=== PATIENT | male | born 1950 | race Caucasian/White ===

== ENCOUNTER 2020-05-05 10:14 | Outpatient (REF) | payer MEDICARE, SELFPAY ==
[2020-05-05 11:39] LABS: Anion Gap 13 (12-20); Blood Urea Nitrogen 27 mg/dL (9-16); Carbon Dioxide 26 mmol/L (22-29); Chloride 104 mmol/L (96-108); Estimated Glomerular Filt Rate > 60; Potassium 4.2 mmol/L (3.3-5.1); Sodium 139 mmol/L (135-145)
[2020-05-05 12:13] LABS: Estimated Average Glucose 114 mg/dL; Hemoglobin A1c % 5.6 %
== END 2020-05-05 10:15 | disposition home or self-care (01) ==
LOC: HO.HMGCLDS 10:14
PROVIDERS: PCP Internal Medicine; Visit Provider Internal Medicine
DX: I10 Essential (primary) hypertension (principal); R73.09 Other abnormal glucose
CPT/HCPCS: 36415; 80051; 82565; 83036; 84520

== ENCOUNTER 2020-12-04 07:33 | Outpatient (REF) | payer MEDICARE, SELFPAY ==
[2020-12-04 11:40] LABS: Alanine Aminotransferase 26 U/L (0-40); Albumin Level 4.2 g/dL (3.5-5.0); Alkaline Phosphatase 67 U/L (39-117); Anion Gap 13 (12-20); Aspartate Amino Transferase 21 U/L (5-37); Bilirubin Total 0.5 mg/dL (0.0-1.0); Blood Urea Nitrogen 30 mg/dL (9-16); Carbon Dioxide 24 mmol/L (22-29); Chloride 108 mmol/L (96-108); Cholesterol 187 mg/dL; Estimated Glomerular Filt Rate > 60; Glucose Fasting 111 mg/dL (60-99); HDL Cholesterol 46 mg/dL; LDL Cholesterol Calculated 127 mg/dl; Potassium 4.1 mmol/L (3.3-5.1); Sodium 141 mmol/L (135-145); Total Protein 6.8 g/dL (6.5-8.0); Triglycerides 73 mg/dL
[2020-12-04 12:01] LABS: Estimated Average Glucose 114 mg/dL; Hemoglobin A1c % 5.6 %
== END 2020-12-04 07:34 | disposition home or self-care (01) ==
LOC: HO.HMGCLDS 07:33
PROVIDERS: PCP Internal Medicine; Visit Provider Internal Medicine
DX: E66.9 Obesity, unspecified (principal); I10 Essential (primary) hypertension; R73.03 Prediabetes
CPT/HCPCS: 36415; 80053; 80061; 83036

== ENCOUNTER 2020-12-09 11:27 | Outpatient (REF) | payer MEDICARE, SELFPAY | END 2020-12-09 11:28 | disposition home or self-care (01) | LOC: HO.LNP 11:27 | PROVIDERS: Visit Provider Internal Medicine | DX: Z20.822 Contact with and (suspected) exposure to COVID-19 (principal); J06.9 Acute upper respiratory infection, unspecified | CPT/HCPCS: U0003; U0005 ==

== ENCOUNTER 2020-12-23 10:06 | Outpatient (REF) | payer MEDICARE, SELFPAY ==
--- NOTE | ~2020-12-23 | XR_ITS ---
EXAMINATION: XR KNEE, RIGHT CLINICAL INFORMATION: Unspecified internal derangement of right knee COMPARISON: Previous x-ray September 2017 TECHNIQUE: Two views of the right knee. FINDINGS: Bone alignment is normal. No fracture or dislocation is seen. There is arthritis of the medial femoral tibial and patellofemoral joints with joint space narrowing and small osteophytes. There is degenerative medial and lateral meniscal calcification. There is a small to moderate joint effusion. XR/XR knee RT 2V IMPRESSION: Degenerative changes and joint effusion.
== END 2020-12-23 10:07 | disposition home or self-care (01) ==
LOC: HO.HMGCX 10:06
PROVIDERS: PCP Internal Medicine; Visit Provider Internal Medicine
DX: Z13.89 Encounter for screening for other disorder (principal)
CPT/HCPCS: 73560

== ENCOUNTER 2021-01-04 08:06 | Outpatient (REF) | payer MEDICARE, SELFPAY ==
--- NOTE | ~2021-01-04 | XR_ITS ---
EXAMINATION: XR BOTH KNEES AP STANDING XR RIGHT KNEE, 2 VIEWS CLINICAL INFORMATION: Pain. COMPARISON: Right knee radiograph dated 12/23/2020. Left knee radiographs dated 09/26/2017. TECHNIQUE: Standing AP view of both knees and lateral and sunrise views of the right knee. FINDINGS: Right Knee: Severe medial compartment joint space narrowing with bony remodeling, subchondral sclerosis, and subchondral cystic change. Tricompartmental marginal osteophytes. Tricompartmental chondrocalcinosis. No significant joint effusion. No osseous erosion. Left Knee: Proximal tibial plateau ORIF. No acute hardware fracture. No perihardware lucency to suggest loosening or infection. [id number] medial compartment joint space narrowing with subchondral sclerosis. Medial and lateral compartment marginal osteophytes and chondrocalcinosis. XR/XR knee RT 2V IMPRESSION: RIGHT KNEE: Tricompartmental osteoarthritis, most severe within the medial compartment. Tricompartmental chondrocalcinosis. Findings have slightly progressed. LEFT KNEE: Proximal tibial plateau ORIF. Medial and lateral compartment osteoarthritis and chondrocalcinosis, slightly progressed.
--- NOTE | ~2021-01-04 | XR_ITS ---
EXAMINATION: XR BOTH KNEES AP STANDING XR RIGHT KNEE, 2 VIEWS CLINICAL INFORMATION: Pain. COMPARISON: Right knee radiograph dated 12/23/2020. Left knee radiographs dated 09/26/2017. TECHNIQUE: Standing AP view of both knees and lateral and sunrise views of the right knee. FINDINGS: Right Knee: Severe medial compartment joint space narrowing with bony remodeling, subchondral sclerosis, and subchondral cystic change. Tricompartmental marginal osteophytes. Tricompartmental chondrocalcinosis. No significant joint effusion. No osseous erosion. Left Knee: Proximal tibial plateau ORIF. No acute hardware fracture. No perihardware lucency to suggest loosening or infection. Lvnrnntt-yg-[id number] medial compartment joint space narrowing with subchondral sclerosis. Medial and lateral compartment marginal osteophytes and chondrocalcinosis. XR/XR knee standing BI IMPRESSION: RIGHT KNEE: Tricompartmental osteoarthritis, most severe within the medial compartment. Tricompartmental chondrocalcinosis. Findings have slightly progressed. LEFT KNEE: Proximal tibial plateau ORIF. Medial and lateral compartment osteoarthritis and chondrocalcinosis, slightly progressed.
== END 2021-01-04 08:07 | disposition home or self-care (01) ==
LOC: HO.HOSX 08:06
PROVIDERS: Visit Provider Orthopaedic Surgery
DX: M17.31 Unilateral post-traumatic osteoarthritis, right knee (principal); M25.562 Pain in left knee; I10 Essential (primary) hypertension; Z91.010 Allergy to peanuts
CPT/HCPCS: 20610; 73560; 73565; 99212; J1100

== ENCOUNTER 2021-05-10 08:25 | Outpatient (REF) | payer MEDICARE, SELFPAY ==
[2021-05-10 11:38] LABS: Alanine Aminotransferase 26 U/L (0-40); Albumin Level 4.2 g/dL (3.5-5.0); Alkaline Phosphatase 65 U/L (39-117); Anion Gap 12 (12-20); Aspartate Amino Transferase 21 U/L (5-37); Bilirubin Total 0.7 mg/dL (0.0-1.0); Blood Urea Nitrogen 23 mg/dL (9-16); Carbon Dioxide 26 mmol/L (22-29); Chloride 107 mmol/L (96-108); Estimated Glomerular Filt Rate > 60; Glucose Random 110 mg/dL (60-115); Potassium 4.8 mmol/L (3.3-5.1); Sodium 140 mmol/L (135-145); Total Protein 7.1 g/dL (6.5-8.0)
[2021-05-10 12:06] LABS: Estimated Average Glucose 117 mg/dL; Hemoglobin A1c % 5.7 %
== END 2021-05-10 08:26 | disposition home or self-care (01) ==
LOC: HO.LAB 08:25
PROVIDERS: Visit Provider Internal Medicine
DX: E66.09 Other obesity due to excess calories (principal); I10 Essential (primary) hypertension; R73.03 Prediabetes
CPT/HCPCS: 36415; 80053; 83036

== ENCOUNTER → 2021-09-09 09:34 | Outpatient (BNVA) | payer MEDICARE, SELFPAY | PROVIDERS: PCP Internal Medicine; Visit Provider Orthopaedic Surgery | DX: M17.31 Unilateral post-traumatic osteoarthritis, right knee (principal) | CPT/HCPCS: 99212 ==

== ENCOUNTER → 2021-10-26 15:17 | Outpatient (BNVA) | payer MEDICARE, SELFPAY | PROVIDERS: PCP Internal Medicine; Visit Provider Nurse Practitioner Family | DX: Z12.11 Encounter for screening for malignant neoplasm of colon (principal) | CPT/HCPCS: 99202 ==

== ENCOUNTER 2021-12-13 09:00 | Outpatient (RCR) | payer MEDICARE, SELFPAY ==
--- NOTE | 2021-12-08 16:53 | MHC.PT.EP ---
[facility] [place] Office [place] Office [place] Office [address] Lawrence Mcgee [address] [phone] F: [phone] F: [phone] F: [phone] F: [phone] Physical Therapy Plan of Care Date of Evaluation: Date of Surgery: Diagnosis: R knee TKR prehab Assessment: Pt is a 71 y/o male with long Hx of R knee pain and dysfunction is referred to PT for Prehab prior to his upcoming TKA; he demonstrates decreased R knee ROM and strength, gait and posture abnormality, and pain. Pt is deemed an appropriate candidate to receive skilled PT in order to address his physical limitations to improve his functional ability and maximize his surgical outcome. Frequency and Duration: The patient will be seen 2 x/ wk x 2 wks. Short Term Goals: initiate prehab program Communications Planner Goals: I with prehab program. R knee extension to 0 degrees; initial: 6 degrees. Improve R knee extension MMT to > 4+/5. Treatment Plan: Modalities to reduce pain, spasms and effusion. Manual therapy to restore motion and function. Therapeutic exercise to improve strength and flexibility. Neuromuscular re-education for posture and balance. Therapeutic activities to return to functional activities of daily living. Electronically signed by: Néstor Moncada PT. Please sign and return to therapist. Thank you for your referral.
--- NOTE | 2021-12-13 11:04 | MHC.PT.DC ---
[facility] [place] Office [place] Office [place] Office [address] Lawrence Mcgee 140 [facility] [phone] F: [phone] F: [phone] F: [phone] F: [phone] Physical Therapy Discharge Report Diagnosis: R knee TKR prehab Date of Surgery: Date of Evaluation: 12/08/21 Date of Discharge: 12/13/21 Treatments to Date: 2 Cancellations to Date: No Shows to Date: Discharge Status: Independent with HEP Patient Elected to Stop Discharge Summary: Pradeep is motivated for his for obtaining a good outcome s/p TKA and has demonstrated good prehab exercise performance. ROM 6-130 Electronically signed by: Néstor Moncada PT. Please sign and return to therapist. Thank you for your referral.
== END 2021-12-13 11:03 | disposition home or self-care (01) ==
LOC: HO.PTCHIC 09:00
PROVIDERS: PCP Internal Medicine; Visit Provider Orthopaedic Surgery
DX: M17.11 Unilateral primary osteoarthritis, right knee (principal)
CPT/HCPCS: 97110; 97161

== ENCOUNTER → 2022-01-12 14:14 | Outpatient (BNVA) | payer MEDICARE, SELFPAY | PROVIDERS: PCP Internal Medicine; Visit Provider Internal Medicine Cardiovascular Disease | DX: Z01.810 Encounter for preprocedural cardiovascular examination (principal); R94.31 Abnormal electrocardiogram [ECG] [EKG]; I10 Essential (primary) hypertension | CPT/HCPCS: 99202 ==

== ENCOUNTER → 2022-01-17 07:14 | Outpatient (REF) | payer MEDICARE, SELFPAY ==
--- NOTE | 2022-01-17 07:16 | CA_ITS ---
Transthoracic Echocardiogram Patient (Last, First, Middle): Pradeep Gómez E Gender: Male Date of : 1950 Age: 71 Procedure Date: 01/17/2022 Procedure Type: Transthoracic Echocardiogram Location: OP Height: 167.64 cm Weight: 86.18 kg BSA: 1.96 m2 Heart Rate: bpm BP: 140 / 88 mmHg Silverware Cleaner: FRANC Referring MD: Sunny Garner MD Symptoms: R94.31 - Abnormal electrocardiogram [ECG] [EKG] Study Quality: Adequate Conclusions: - Normal left ventricular size and systolic function. There is mildly increased left ventricular wall thickness. The visually estimated ejection fraction is between 60-65%. - There is normal right ventricular systolic function. RV size is on upper limit of normal. - The left atrium is likely dilated. The right atrium is normal in size. - There is mild dilatation of the ascending aorta measuring 3.50 cm. Findings Left Ventricle Normal left ventricular size and systolic function. There is mildly increased left ventricular wall thickness. The visually estimated ejection fraction is between 60-65%. There is no evidence of regional wall motion abnormalities. Diastolic function is normal for age. Right Ventricle There is normal right ventricular systolic function. RV size is on upper limit of normal. Atria The left atrium is likely dilated. The right atrium is normal in size. Aortic Valve Normal aortic valve structure and function. There is no aortic valve stenosis. There is no aortic valve regurgitation. Mitral Valve Normal mitral valve structure and function. There is trace mitral valve regurgitation. There is no mitral valve stenosis. Pulmonic Valve Normal pulmonic valve structure and function. There is trace pulmonic valve regurgitation. Tricuspid Valve Normal tricuspid valve structure and function. There is trace tricuspid valve regurgitation. Normal right atrial pressure. There is no evidence of pulmonary hypertension. Great Vessels There is mild dilatation of the ascending aorta measuring 3.50 cm. The visualized portions of the pulmonary artery and branches are normal. Venous The inferior vena cava is normal in size and collapses greater than 50% with inspiration. Pericardium/Pleural There is no evidence of pericardial effusion. Prior Study Comparison No prior study available for comparison. Measurements 2D Linear Measurements IVSd: 1.16 0.6-0.9/0.6-1.0 cm LVIDd: 4.47 3.9-5.3/4.2-5.9 cm LVIDd Index: 2.28 2.4-3.2/2.2-3.1 cm/m2 LVIDs: 2.53 2.0-3.6 cm LVPWd: 1.06 0.7-1.1 cm LA Diam: 3.90 2.7-3.8/3.0-4.0 cm LAIDs Index: 1.99 1.5-2.3 cm/m2 LV Mass: 218.51 67-162/88-224 g LV Mass Index: 111.48 43-95/49-115 g/m2 LVOT Diam: 2.00 3.0+(-)1.3 cm 2D Systolic Function EF 4C: 62.20 >55% EF 2C: 61.10 >55% EF BiP: 60.90 >55% Mitral Valve MV Pk E: 0.70 MV PK A: 0.69 MV Decel Time: 293.00 E/A: 1.00 E'Lateral: 10.80 E'Medial: 8.81 E/E' Med: 7.90 E/E' Lat: 6.50 PHT: 86.00 MVA PHT: 2.56 Decel [place]: 2.38 Aortic Valve AoV Pk [place]: 1.66 AoV Mn [place]: 1.11 AoV VTI: 0.36 AoV Pk Grad: 11.00 Aov Mn Grad: 6.00 LIZZIE Cont.VTI: 2.04 LVOT LVOT Pk [place]: 1.03 LVOT Mn [place]: 0.66 LVOT VTI: 0.24 LVOT Pk Grad: 4.00 LVOT Mn Grad: 2.00 LVOT Diam: 2.00 LVOT Area: 3.14 Diastolic Function MV Pk E: 0.70 MV Pk A: 0.69 E/A: 1.00 E'Medial: 8.81 E/E' Med: 7.90 E' Laterial: 10.80 E/E' Lat: 6.50 Right Ventricle TAPSE (mm): 26.90 TVS' [place]: 18.50 Tricuspid Valve TR Pk [place]: 2.73 TR Pk Grad: 30.00 RA Press: 3.00 RVSP: 33.00 Great Vessels Aorta Sinus of Valsalva: 3.27 2.0-3.[address] [place]: 2.39 1.7-3.4 cm Ao Asc: 3.50 2.1-3.4 cm Updated in Other Vendor System with Status of Final Sunny Garner MD electronically signed on 01/17/2022 11:11:36 AM with status of Final
== END ==
LOC: HO.CARD 07:14
PROVIDERS: PCP Internal Medicine; Visit Provider Internal Medicine
DX: R94.31 Abnormal electrocardiogram [ECG] [EKG] (principal)
CPT/HCPCS: 93306

== ENCOUNTER 2022-01-18 09:23 | Day surgery (SDC) | payer MEDICARE, SELFPAY ==
--- NOTE | 2021-12-28 | ECG_ITS ---
Test Reason : PREOP Blood Pressure : / mmHG Vent. Rate : 064 BPM Atrial Rate : 064 BPM P-R Int : 144 ms QRS Dur : 102 ms QT Int : 420 ms P-R-T Axes : -02 031 -19 degrees QTc Int : 433 ms Sinus rhythm with occasional Premature ventricular complexes T wave abnormality, consider lateral ischemia T wave abnormality, consider inferior ischemia Abnormal ECG No previous ECGs available Referred By: Jovanni Massey Electronically Signed By:FRANNIE WYATT
[2021-12-28 11:56] VITALS: BP 144/88; PULSE 66; RESP 20; O2SAT 96; BMI 30.8
--- NOTE | 2021-12-28 12:06 | P.CONAN_ITS ---
HPI - Anesthesia Eval Consult details Narrative: Abnormal EKG, per T/C with PCP, pt requires cardiac workup 71yo M for Right Knee Replacement Total PCP cleared [facility] Active Problems Active Problems: All Active Problems (Updated 12/27/21 @ 11:11 by Preeti Motley RN) Pre-diabetes (Acute) Obesity (Acute) Impacted cerumen of both ears (Acute) Upper respiratory tract infection (Acute) Internal derangement of right knee (Acute) Obesity due to excess calories (Acute) Unilateral post-traumatic osteoarthritis, right knee (Acute) Encounter for general adult medical examination with abnormal findings (Acute) Colon cancer screening (Acute) Osteoarthritis of right knee (Acute) Hypertension, essential (Acute) Past Medical History Medical History History of depression Hypertension, essential Family History Family history of problems with anesthesia: No Surgical History Surgical History History of lumbar discectomy History of surgery on extremity Hx of arthroscopy of left knee Hx of colonoscopy Hx of elbow surgery Hx of hernia repair Hx of repair of rotator cuff History of Problems with Anesthesia: No Social History Social History Housing: House Are you a primary student career development specialist to a significant other at home: No Do you presently have visiting nurse or other home services: No Alcohol intake: current Alcohol intake frequency: a few times a month Patient Tobacco Use Status: Never used Tobacco e-Cigarette/Vaping Use: Never Used Second Hand Smoke Exposure: No service: No Current occupational status: retired Current occupation: Left handed Cognitive needs: No Hearing needs: No Vision needs: No Narrative Narrative: No recent illness No CP or SOB with hiking Meds Allergies Allergy/AdvReac Type Severity Reaction Status Date / Time peanuts Allergy Severe anaphylaxis Uncoded 12/31/21 10:23 Exam Exam Date and Time: December 28, 2021 1206 Height,Weight and Vital Signs: Height 5 ft 6 in Weight 86.636 kg Last Vital Signs Pulse 66 12/28/21 11:56 Resp 20 12/28/21 11:56 BP 144/88 H 12/28/21 11:56 Pulse Ox 96 12/28/21 11:56 O2 Del Method 12/28/21 11:56 Pertinent Lab Results Pertinent Lab Results: Lab Results 12/28/21 12/28/21 12/28/21 Range/Units 12:55 12:55 12:55 WBC 8.9 (4.8-10.8) X10*3/uL RBC 4.74 (4.60-5.80) X10*6/uL Hgb 14.8 (14.0-18.0) g/dl Hct 44.4 (42.0-52.0) % MCV 93.7 (80.0-98.0) fL MCH 31.2 (27.0-33.0) pg MCHC 33.3 (31.0-36.0) g/dl RDW 13.4 (11.0-16.0) % Plt Count 381 (160-400) X10*3/uL MPV 9.8 (9.4-12.4) fL Immature Gran % (Auto) 0.3 (0.0-0.4) % Neut % (Auto) 66.2 (45-73) % Lymph % (Auto) 24.0 (20-40) % [place] % (Auto) 7.4 (2-11) % Eos % (Auto) 1.4 (0-4) % Baso % (Auto) 0.7 (0-2) % Lymph # (Auto) 2.1 (1.2-4.9) X10*3/uL [place] # (Auto) 0.7 (0.1-1.2) X10*3/uL Eos # (Auto) 0.1 (0.0-0.4) X10*3/uL Baso # (Auto) 0.1 (0.0-0.2) X10*3/uL Abs Immat Gran (auto) 0.03 (0.00-0.03) X10*3/uL Absolute Neuts (auto) 5.9 (2.0-8.3) x10*3/uL Absolute Nucleated RBC 0.000 (0.0-0.012) X10*3/uL Nucleated RBC % (auto) 0.0 (0.0-0.2) /100WBC Sodium TNP Potassium TNP Chloride TNP Carbon Dioxide TNP Anion Gap TNP BUN TNP Creatinine TNP Estim Creat Clear Calc TNP Estimated GFR TNP Fasting Glucose (60-99) mg/dL Calcium (8.4-10.2) mg/dL Total Bilirubin (0.0-1.0) mg/dL AST (5-37) U/L ALT (0-40) U/L Alkaline Phosphatase (39-117) U/L Total Protein (6.5-8.0) g/dL Albumin (3.5-5.0) g/dL Triglycerides mg/dL Cholesterol mg/dL LDL Cholesterol, Calc mg/dl HDL Cholesterol mg/dL Nasal Screen MRSA (PCR) (Negative) Nasal S. aureus Screen (Negative) Nasal MRSA/S.aureus Interp Blood Type A Negative Antibody Screen NEGATIVE 12/28/21 12/28/21 12/28/21 Range/Units 12:55 12:55 Unknown WBC Cancelled (4.8-10.8) X10*3/uL RBC Cancelled (4.60-5.80) X10*6/uL Hgb Cancelled (14.0-18.0) g/dl Hct Cancelled (42.0-52.0) % MCV Cancelled (80.0-98.0) fL MCH Cancelled (27.0-33.0) pg MCHC Cancelled (31.0-36.0) g/dl RDW Cancelled (11.0-16.0) % Plt Count Cancelled (160-400) X10*3/uL MPV Cancelled (9.4-12.4) fL Immature Gran % (Auto) Cancelled (0.0-0.4) % Neut % (Auto) Cancelled (45-73) % Lymph % (Auto) Cancelled (20-40) % [place] % (Auto) Cancelled (2-11) % Eos % (Auto) Cancelled (0-4) % Baso % (Auto) Cancelled (0-2) % Lymph # (Auto) Cancelled (1.2-4.9) X10*3/uL [place] # (Auto) Cancelled (0.1-1.2) X10*3/uL Eos # (Auto) Cancelled (0.0-0.4) X10*3/uL Baso # (Auto) Cancelled (0.0-0.2) X10*3/uL Abs Immat Gran (auto) Cancelled (0.00-0.03) X10*3/uL Absolute Neuts (auto) Cancelled (2.0-8.3) x10*3/uL Absolute Nucleated RBC Cancelled (0.0-0.012) X10*3/uL Nucleated RBC % (auto) Cancelled (0.0-0.2) /100WBC Sodium 141 Potassium 4.4 Chloride 105 Carbon Dioxide 24 Anion Gap 16 BUN 28 H Creatinine 1.04 Estim Creat Clear Calc 69.1 Estimated GFR > 60 Fasting Glucose 103 H (60-99) mg/dL Calcium 9.9 (8.4-10.2) mg/dL Total Bilirubin 0.4 (0.0-1.0) mg/dL AST 21 (5-37) U/L ALT 27 (0-40) U/L Alkaline Phosphatase 73 (39-117) U/L Total Protein 7.5 (6.5-8.0) g/dL Albumin 4.5 (3.5-5.0) g/dL Triglycerides 79 mg/dL Cholesterol 205 mg/dL LDL Cholesterol, Calc 142 mg/dl HDL Cholesterol 48 mg/dL Nasal Screen MRSA (PCR) NEGATIVE (Negative) Nasal S. aureus Screen NEGATIVE (Negative) Nasal MRSA/S.aureus Interp SEE NOTE Blood Type Antibody Screen Narrative Narrative: EKG 12/2021 Vent. Rate : 064 BPM ? ? Atrial Rate : 064 BPM ?? P-R Int : 144 ms? QRS Dur : 102 ms ? ? QT Int : 420 ms ? ? ? P-R-T Axes : -02 031 -19 degrees ?? QTc Int : 433 ms ? Sinus rhythm with occasional Premature ventricular complexes T wave abnormality, consider lateral ischemia T wave abnormality, consider inferior ischemia Abnormal ECG No previous ECGs available Airway Mallampati Class: II TM Dist: >3cm Neck ROM: Full Loose/Missing/Broken Teeth: No (Crowned molars) Heart: RRR Lungs: CTAB Assessment and Plan Assessment Anesthesia Assessment: Anesthesia Plan Discussed and PAT Visit Final Anesthetic Review Family History of Problems with Anesthesia: No History of Problems with Anesthesia: No
[2021-12-28 13:04] LABS: MANUAL DIFF FLAG NO
[2021-12-28 13:38] LABS: Basophils Absolute Auto 0.1 X10*3/uL (0.0-0.2); Basophils Percent Auto 0.7 % (0-2); Eosinophils Absolute Auto 0.1 X10*3/uL (0.0-0.4); Eosinophils Percent Auto 1.4 % (0-4); Hematocrit 44.4 % (42.0-52.0); Hemoglobin 14.8 g/dl (14.0-18.0); Imm Gran Abs Auto 0.03 X10*3/uL (0.00-0.03); Imm Gran Pct Auto 0.3 % (0.0-0.4); Lymphocytes Absolute Auto 2.1 X10*3/uL (1.2-4.9); Mean Corpuscular HGB Conc 33.3 g/dl (31.0-36.0); Mean Corpuscular Hemoglobin 31.2 pg (27.0-33.0); Mean Corpuscular Volume 93.7 fL (80.0-98.0); Mean Platelet Volume 9.8 fL (9.4-12.4); Monocytes Absolute Auto 0.7 X10*3/uL (0.1-1.2); Monocytes Percent Auto 7.4 % (2-11); Neutrophils Absolute Auto 5.9 x10*3/uL (2.0-8.3); Neutrophils Percent Auto 66.2 % (45-73); Platelet Count 381 X10*3/uL (160-400); Red Blood Count 4.74 X10*6/uL (4.60-5.80); Red Cell Distribution Width 13.4 % (11.0-16.0); White Blood Count 8.9 X10*3/uL (4.8-10.8)
[2021-12-28 14:02] LABS: Alanine Aminotransferase 27 U/L (0-40); Albumin Level 4.5 g/dL (3.5-5.0); Alkaline Phosphatase 73 U/L (39-117); Anion Gap 16 (12-20); Aspartate Amino Transferase 21 U/L (5-37); Bilirubin Total 0.4 mg/dL (0.0-1.0); Blood Urea Nitrogen 28 mg/dL (9-16); Calcium 9.9 mg/dL (8.4-10.2); Carbon Dioxide 24 mmol/L (22-29); Chloride 105 mmol/L (96-108); Cholesterol 205 mg/dL; Creatinine Clr Calc Pharmacy 69.1; Estimated Glomerular Filt Rate > 60; Glucose Fasting 103 mg/dL (60-99); HDL Cholesterol 48 mg/dL; LDL Cholesterol Calculated 142 mg/dl; Potassium 4.4 mmol/L (3.3-5.1); Sodium 141 mmol/L (135-145); Total Protein 7.5 g/dL (6.5-8.0); Triglycerides 79 mg/dL
[2021-12-28 17:05] LABS: MRSA Nasal PCR NEGATIVE (Negative); SA Nasal PCR NEGATIVE (Negative)
--- NOTE | 2022-01-17 08:25 | P.CONAN_ITS ---
Documented by User: Che Ruggiero NP 01/17/22 08:29 HPI - Anesthesia Eval Consult details Narrative: 71yo M for Right Knee Replacement Total PCP cleared Cardiac cleared (abnormal EKG during preop workup, echo pending, but ok to proceed with surgery without results) PMF Active Problems Active Problems: All Active Problems (Updated 01/12/22 @ 15:20 by Sunny Garner MD) Preop cardiovascular exam (Acute) Abnormal EKG (Acute) Pre-op evaluation (Acute) Pre-diabetes (Acute) Obesity (Acute) Impacted cerumen of both ears (Acute) Upper respiratory tract infection (Acute) Internal derangement of right knee (Acute) Obesity due to excess calories (Acute) Unilateral post-traumatic osteoarthritis, right knee (Acute) Encounter for general adult medical examination with abnormal findings (Acute) Colon cancer screening (Acute) Osteoarthritis of right knee (Acute) Hypertension, essential (Acute) Past Medical History Medical History History of depression Hypertension, essential Family History Family history of problems with anesthesia: No Surgical History Surgical History History of lumbar discectomy History of surgery on extremity Hx of arthroscopy of left knee Hx of colonoscopy Hx of elbow surgery Hx of hernia repair Hx of repair of rotator cuff History of Problems with Anesthesia: No Social History Social History (Updated 01/12/22 @ 14:37 by COLLINS Prasad) Housing: House Are you a primary care transition manager to a significant other at home: No Do you presently have visiting nurse or other home services: No Alcohol intake: current Alcohol intake frequency: holidays/special occasions only Patient Tobacco Use Status: Never used Tobacco e-Cigarette/Vaping Use: Never Used Second Hand Smoke Exposure: No Use of substances other than those prescribed or required for medical reasons: No Have you been hit, kicked, punched, or otherwise hurt by someone within the past year? If so, by whom?: No Are you DNR?: No Advance Directives: No Advance Directives Information Provided: Yes (To bring copy DOS) Advance Directives on File: No Recently lost weight without trying: No Eating poorly because of decreased appetite: No Nutrition Risks: No Nutritional Risk Poor oral hygiene: Yes (Intact teeth) service: No Current occupational status: retired Current occupation: Left handed Cognitive needs: No Hearing needs: No Vision needs: No Meds Allergies Allergy/AdvReac Type Severity Reaction Status Date / Time peanuts Allergy Severe anaphylaxis Uncoded 01/12/22 14:35 Exam Exam Date and Time: January 17, 2022 0825 Height,Weight and Vital Signs: Height 5 ft 6 in Weight 86.636 kg Last Vital Signs Pulse 66 12/28/21 11:56 Resp 20 12/28/21 11:56 BP 144/88 H 12/28/21 11:56 Pulse Ox 96 12/28/21 11:56 O2 Del Method 12/28/21 11:56 Pertinent Lab Results Pertinent Lab Results: Laboratory Tests 12/28/21 12/28/21 12/28/21 12:55 12:55 12:55 WBC 8.9 RBC 4.74 Hgb 14.8 Hct 44.4 MCV 93.7 MCH 31.2 MCHC 33.3 RDW 13.4 Plt Count 381 MPV 9.8 Immature Gran % (Auto) 0.3 Neut % (Auto) 66.2 Lymph % (Auto) 24.0 [place] % (Auto) 7.4 Eos % (Auto) 1.4 Baso % (Auto) 0.7 Lymph # (Auto) 2.1 [place] # (Auto) 0.7 Eos # (Auto) 0.1 Baso # (Auto) 0.1 Abs Immat Gran (auto) 0.03 Absolute Neuts (auto) 5.9 Absolute Nucleated RBC 0.000 Nucleated RBC % (auto) 0.0 Sodium TNP Potassium TNP Chloride TNP Carbon Dioxide TNP Anion Gap TNP BUN TNP Creatinine TNP Estim Creat Clear Calc TNP Estimated GFR TNP Fasting Glucose Calcium Total Bilirubin AST ALT Alkaline Phosphatase Total Protein Albumin Triglycerides Cholesterol LDL Cholesterol, Calc HDL Cholesterol Nasal Screen MRSA (PCR) Nasal S. aureus Screen Nasal MRSA/S.aureus Interp Blood Type A Negative Antibody Screen NEGATIVE 12/28/21 12/28/21 12/28/21 12:55 12:55 Unknown WBC Cancelled RBC Cancelled Hgb Cancelled Hct Cancelled MCV Cancelled MCH Cancelled MCHC Cancelled RDW Cancelled Plt Count Cancelled MPV Cancelled Immature Gran % (Auto) Cancelled Neut % (Auto) Cancelled Lymph % (Auto) Cancelled [place] % (Auto) Cancelled Eos % (Auto) Cancelled Baso % (Auto) Cancelled Lymph # (Auto) Cancelled [place] # (Auto) Cancelled Eos # (Auto) Cancelled Baso # (Auto) Cancelled Abs Immat Gran (auto) Cancelled Absolute Neuts (auto) Cancelled Absolute Nucleated RBC Cancelled Nucleated RBC % (auto) Cancelled Sodium 141 Potassium 4.4 Chloride 105 Carbon Dioxide 24 Anion Gap 16 BUN 28 H Creatinine 1.04 Estim Creat Clear Calc 69.1 Estimated GFR > 60 Fasting Glucose 103 H Calcium 9.9 Total Bilirubin 0.4 AST 21 ALT 27 Alkaline Phosphatase 73 Total Protein 7.5 Albumin 4.5 Triglycerides 79 Cholesterol 205 LDL Cholesterol, Calc 142 HDL Cholesterol 48 Nasal Screen MRSA (PCR) NEGATIVE Nasal S. aureus Screen NEGATIVE Nasal MRSA/S.aureus Interp SEE NOTE Blood Type Antibody Screen Narrative Narrative: EKG 12/2021 Vent. Rate : 064 BPM ? ? Atrial Rate : 064 BPM ?? P-R Int : 144 ms? QRS Dur : 102 ms ? ? QT Int : 420 ms ? ? ? P-R-T Axes : -02 031 -19 degrees ?? QTc Int : 433 ms ? Sinus rhythm with occasional Premature ventricular complexes T wave abnormality, consider lateral ischemia T wave abnormality, consider inferior ischemia Abnormal ECG No previous ECGs available Airway Mallampati Class: II TM Dist: >3cm Neck ROM: Full Loose/Missing/Broken Teeth: No (Crowned molars) Heart: RRR Lungs: CTAB Assessment and Plan Assessment Anesthesia Assessment: Anesthesia Plan Discussed and PAT Visit (12/28/21) Final Anesthetic Review Family History of Problems with Anesthesia: No History of Problems with Anesthesia: No Documented by User: Michael Lee MD 01/18/22 13:31 [facility] Past Medical History Medical History History of depression Hypertension, essential Surgical History Surgical History History of lumbar discectomy History of surgery on extremity Hx of arthroscopy of left knee Hx of colonoscopy Hx of elbow surgery Hx of hernia repair Hx of repair of rotator cuff Social History Social History (Updated 01/12/22 @ 14:37 by COLLINS Prasad) Housing: House Are you a primary care transition manager to a significant other at home: No Do you presently have visiting nurse or other home services: No Alcohol intake: current Alcohol intake frequency: holidays/special occasions only Patient Tobacco Use Status: Never used Tobacco e-Cigarette/Vaping Use: Never Used Second Hand Smoke Exposure: No Use of substances other than those prescribed or required for medical reasons: No Have you been hit, kicked, punched, or otherwise hurt by someone within the past year? If so, by whom?: No Are you DNR?: No Advance Directives: No Advance Directives Information Provided: Yes (To bring copy DOS) Advance Directives on File: No Recently lost weight without trying: No Eating poorly because of decreased appetite: No Nutrition Risks: No Nutritional Risk Poor oral hygiene: Yes (Intact teeth) service: No Current occupational status: retired Current occupation: Left handed Cognitive needs: No Hearing needs: No Vision needs: No Meds Allergies Allergy/AdvReac Type Severity Reaction Status Date / Time peanuts Allergy Severe anaphylaxis Uncoded 01/12/22 14:35 Exam Airway Loose/Missing/Broken Teeth: Yes (Crowns ) Assessment and Plan Assessment Anesthesia Assessment: Chart Reviewed Final Anesthetic Review NPO: Yes ASA Class: III Final Preanesthetic Review: Meds/Allgs Chart Reviewed, Consent Obtained/Reviewed and Anes Risks/Benef Reviewed Patient Risk: Intermediate Procedure Risk: Intermediate Anesthetic Plan Anesthetic Plan: Spinal and Regional Block Disposition: Standard PACU
[2022-01-18] VITALS (15 sets, daily range): BP systolic 90–150; BP diastolic 46–89; PULSE 58–94; RESP 16–18; TEMP 36.1–36.7; O2SAT 92–99; BMI 30.7
--- NOTE | ~2022-01-18 | XR_ITS ---
EXAMINATION: XR KNEE, RIGHT CLINICAL INFORMATION: Postoperative right knee COMPARISON: 01/04/2021 TECHNIQUE: Two views of the right knee. FINDINGS: There is a new total right knee arthroplasty. The femoral component articulates appropriately with the tibial and patellar components. No periprosthetic lucency or fracture. Postoperative soft tissue and joint space gas. Anterior skin damien. XR/XR knee RT 2V IMPRESSION: Total right knee arthroplasty in typical positioning and alignment.
[2022-01-18 10:07] LABS: Hematocrit 43.6 % (42.0-52.0); Hemoglobin 14.8 g/dl (14.0-18.0)
[2022-01-18] MEDS: Lactated Ringers 1,000 ML 100 ML IVCONT ×2 (10:19→16:30)
[2022-01-18 10:20] LABS: COVID-19 Test Negative (Negative); IDNOW Serial# 9DB6401D
--- NOTE | 2022-01-18 11:39 | MHC.SHP ---
Pre-Procedural Eval Section A Date of Service: 01/18/22 The patient is an INPATIENT: No Changes since office visit: Yes Patient answered all questions; No Cold of Flu in the past 2 weeks, No New Medical Problems and No Changes in Medication The History & Physical has been completed within 30 days and I have reviewed it.: Yes Section B Chief Complaint: post traumatic osteoarthritis Allergies: Allergies Allergy/AdvReac Type Severity Reaction Status Date / Time peanuts Allergy Severe anaphylaxis Uncoded 01/12/22 14:35 Plan I have reviewed the history and physical and performed a pertinent physical examination on my patient. No changes have occurred unless specified.
--- NOTE | 2022-01-18 12:56 | W.PM.OPN ---
Operative Note Operative Note Date of Service: 01/18/22 Narrative: Date of Service: 01/18/22 Pre-op diagnosis: Right knee oa Post-op diagnosis: same Procedure: Right TKA Implants: [place] Triathalong press fit cruciate retaining 4/5/13cr/35a Surgeon: Matty Mustafa MD Anesthesia: regional and spinal Was an Mid Level Provider used for this Procedure?: Yes Mid Level Provider: Jovanni Massey Estimated blood loss (mL): 150 IV fluids (mL): 1,000 Pathology: other Condition: stable Disposition: PACU Procedure in detail: The patient was brought to the operating room and prepped and draped in standard sterile fashion. A time-out was called to identify proper site proper procedure proper surgeon and IV antibiotics were administered. 1 g of IV tranexamic acid was ____ administered. I began by making a midline incision to the retinaculum and performed an arthrotomy with a sub-vastus approach. The patella was translated laterally and the knee was flexed up. The medial compartment was eburnated. There was a 5 deg flexion contracture and the knee was in 5deg of varus . I performed a medial peel and resected the infrapatellar fat pad. [place]'s line was then used to drill my intramedullary femoral guide and my distal femur cut of 11 mm was made in 5 degrees of valgus while protecting the soft tissues. I then measured a # 4 femur and placed my cutting guide and made my anterior posterior and chamfer cuts protecting the soft tissues at all times. Once I was satisfied with my cuts I turned my attention to the tibia. I removed the meniscus medially and laterally and , using an external cutting guide, in line with the tibial crest and the third ray, I made my distal tibial cut in 3 deg slope of while protecting the PCL the posterior soft tissues at all times. An extension block was used to confirm appropriate amount of bony resection. I then sized a #5 tibia and once I was satisfied that there was complete tibial coverage I placed my trial and with the trial femur in place took the knee through range of motion. I was satisfied with the extension and flexion as well as the stability and balance at 0, 30 and 90 degrees. I then turned my attention to the patella where I removed 1 cm from the undersurface of the patella and then trialed a 35a patellar button. Again the knee was taken through range of motion I was satisfied with the tracking. I then returned to the femur and drilled my femoral lug holes and prepared the tibia. A femoral bone plug was placed and the knee was irrigated copiously. I then press fit the patella, tibia and femur in standard fashion. I trialed different inserts until I selected a #13 insert. The final insert was placed and a 3 minutes iodine soak with local TXA was performed. A Werewolf cautery wand was used to maintain hemostasis over the capsule, meniscal beds, the gutters and peripatellar soft tissues. The knee was then closed with a running Quill suture, a 3 0 Vicryl and damien on the skin. Patient was then placed in sterile dressing and brought to recovery room in stable condition there were no known complications.
[2022-01-18] MEDS: oxyCODONE HCl Immed Release 5 MG TABLET PO ×2 (14:41→18:34)
[2022-01-18] MEDS: HYDROmorphone HCl 0.5 MG/0.5 ML SYRINGE IVPUSH ×3 (14:42→15:18)
[2022-01-18] MEDS: 0.9 % Sodium Chloride Flush 3 ML SYRINGE IVFLUSH (16:13)
[2022-01-18] MEDS: Acetaminophen 325 MG TABLET 650 MG PO (16:29)
[2022-01-18] MEDS: ceFAZolin Sodium/Dextrose,Iso 2 GM/50 ML PIGGYBACK IV (16:30)
[2022-01-18] MEDS: Docusate Sodium 100 MG CAPSULE PO (20:19)
[2022-01-18] MEDS: oxyCODONE HCl ER 10 MG TAB.ER.12H PO (20:19)
[2022-01-18] MEDS: Celecoxib 200 MG CAPSULE PO (20:19)
--- NOTE | 2022-01-18 20:29 | P.CONHOSP_ITS ---
History of Present Illness Data of Consult Service Date: 01/18/22 Requesting physician: Jovanni Massey Primary Care Provider: MD MAITE Robison Reason for consult: medical management Patient with history of depression, obesity, prediabetes with last hemoglobin A1c of 5.7% and hypertension admitted to Orthopedic surgery for total right knee replacement postop day 0. Patient had abnormal EKG 12/28 with sinus rhythm with occasional PVCs and T-wave abnormalities, consider inferior and lateral infarction. Subsequent echocardiogram shows normal LV size and systolic function with EF 60-65%. Diastolic function normal. No evidence of regional wall motion abnormalities. Mild dilatation of the ascending aorta measuring 3.5 cm. Patient denies any recent history of or current chest pain, shortness of breath, palpitations, lightheadedness. He states he did have nausea and headache earlier but these have resolved. Currently rates the pain in the right knee as a 4/10 but tells me he was able to ambulate about 12 ft. Review of Systems Review of Systems: General: No fevers, malaise, unintentional weight loss Cardiovascular: No chest pain, palpitations, or leg edema Respiratory: No shortness of breath, wheezing, cough GI: No abdominal pain, nausea, vomiting, diarrhea, constipation, melena, hematochezia MSK: +pain right knee Neuro: No headaches, weakness, paresthesias Skin: No rashes or lesions [facility] Medical History (Updated 01/18/22 @ 20:35 by MURTAZA Huerta) History of depression Hypertension, essential Pre-diabetes Surgical History History of lumbar discectomy History of surgery on extremity Hx of arthroscopy of left knee Hx of colonoscopy Hx of elbow surgery Hx of hernia repair Hx of repair of rotator cuff Social History (Updated 01/12/22 @ 14:37 by COLLINS Prasad) Household Members: Spouse Housing: House Are you a primary day care supervisor to a significant other at home: No Do you presently have visiting nurse or other home services: No Alcohol intake: current Alcohol intake frequency: holidays/special occasions only Patient Tobacco Use Status: Never used Tobacco e-Cigarette/Vaping Use: Never Used Second Hand Smoke Exposure: No Use of substances other than those prescribed or required for medical reasons: No Currently Displaying Signs/Symptoms of Drug Intoxication Withdrawal: No Any prior treatment program specific to substance use: No Have you been hit, kicked, punched, or otherwise hurt by someone within the past year? If so, by whom?: No Do you feel safe in your current relationship?: Yes Is there a partner from a previous relationship who is making you feel unsafe now?: No Are you made to feel afraid or neglected: No Are you DNR?: No Advance Directives: No Advance Directives Information Provided: Yes (To bring copy DOS) Advance Directives on File: No Do you have thoughts of harming others: None Recently lost weight without trying: No How much weight loss: Not applicable Eating poorly because of decreased appetite: No Nutrition screen score: 0 Nutrition Risks: No Nutritional Risk Poor oral hygiene: No service: No Current occupational status: retired Current occupation: Left handed Cognitive needs: No Hearing needs: No Vision needs: No Meds Allergies Allergy/AdvReac Type Severity Reaction Status Date / Time peanuts Allergy Severe anaphylaxis Uncoded 01/12/22 14:35 Active Medications: Current Medications Acetaminophen (Acetaminophen 325 Mg Tablet) 650 mg PO Q6H PRN PRN Reason: Pain, Mild (Pain Scale 1-3) Last Admin: 01/18/22 16:29 Dose: 650 mg Aspirin (Aspirin 325 Mg Tablet) 325 mg PO BID PENDING SALE TO [facility] Celecoxib (Celecoxib 200 Mg Capsule) 200 mg PO BID PENDING SALE TO [facility] Last Admin: 01/18/22 20:19 Dose: 200 mg Docusate Sodium (Docusate Sodium 100 Mg Capsule) 100 mg PO BID PENDING SALE TO [facility] Last Admin: 01/18/22 20:19 Dose: 100 mg Hydromorphone HCl (Hydromorphone Hcl 0.5 Mg/0.5 Ml Syringe) 0.5 mg IVPUSH Q5M PRN; Protocol PRN Reason: Pain, Severe (Pain Scale 7-10) Last Admin: 01/18/22 15:18 Dose: 0.5 mg Hydromorphone HCl (Hydromorphone Hcl 0.5 Mg/0.5 Ml Syringe) 0.25 mg IVPUSH Q4H PRN; Protocol PRN Reason: Pain, Severe (Pain Scale 7-10) Promethazine HCl 12.5 mg/ (Sodium Chloride) 50.5 mls @ 202 mls/hr IV ONCE PRN PRN Reason: Nausea and Vomiting Lactated Ringer's (Lr) 1,000 mls @ 100 mls/hr IVCONT .Q10H PENDING SALE TO [facility] Stop: 01/19/22 15:59 Last Admin: 01/18/22 16:30 Dose: 100 mls/hr Ondansetron HCl (Ondansetron Hcl 4 Mg/2 Ml Vial) 4 mg IVPUSH ONCE PRN PRN Reason: Nausea and Vomiting Oxycodone HCl (Oxycodone Hcl Immed Release 5 Mg Tablet) 5 mg PO Q4H PRN PRN Reason: Pain, Moderate (Pain Scale 4-6 Last Admin: 01/18/22 18:34 Dose: 5 mg Oxycodone HCl (Oxycodone Hcl Er 10 Mg Tab.Er.12h) 10 mg PO BID PENDING SALE TO [facility] Last Admin: 01/18/22 20:19 Dose: 10 mg Sodium Chloride (0.9 % Sodium Chloride Flush 3 Ml Syringe) 3 ml IVFLUSH QSHIFT PENDING SALE TO [facility] Last Admin: 01/18/22 16:13 Dose: 3 ml Physical Exam Vital Signs and Narrative: Vital Signs: Last Vital Signs Temp 97.3 F 01/18/22 19:33 Pulse 94 01/18/22 19:33 Resp 18 01/18/22 19:33 BP 135/63 01/18/22 19:33 Pulse Ox 92 01/18/22 19:33 O2 Del Method 01/18/22 19:33 O2 Flow Rate 6 01/18/22 13:48 BMI result Body Mass Index 30.7 Results Labs CBC and Chem 7: 01/18/22 09:59 12/28/21 12:55 Labs: Laboratory Results - last 24 hr 01/18/22 01/18/22 09:37 09:59 COVID-19 ([facility]) Negative COVID-19 Clin Com See Note Blood Type A Negative Antibody Screen NEGATIVE Imaging Radiologist's Impressions: Impressions Knee X-Ray 01/18/22 14:26 IMPRESSION: Total right knee arthroplasty in typical positioning and alignment. Assessment and Plan (1) Osteoarthritis of right knee: Status: Acute Plan Patient with history of depression, obesity, prediabetes with last hemoglobin A1c of 5.7% and hypertension admitted to Orthopedic surgery for total right knee replacement postop day 0 with consult placed for medical management. # hypertension- controlled at 135/63 -hold home meds for now -consider resuming amlodipine and lisinopril in the a.m. -hold HCTZ for now -Monitor bps # pre diabetes -most recent hemoglobin A1c 5.7% -education provided to patient -recommend diabetic diet Thank you for allowing me to participate in this consult. We will continue to follow.
[2022-01-19] VITALS (9 sets, daily range): BP systolic 127–180; BP diastolic 58–82; PULSE 75–108; RESP 14–18; TEMP 36.4–37.2; O2SAT 93–99
[2022-01-19] MEDS: oxyCODONE HCl Immed Release 5 MG TABLET PO ×2 (01:57→11:04)
[2022-01-19] MEDS: Acetaminophen 325 MG TABLET 650 MG PO (01:57)
[2022-01-19] MEDS: Lactated Ringers 1,000 ML 100 ML IVCONT ×2 (01:59→15:50)
[2022-01-19] MEDS: HYDROmorphone HCl 0.5 MG/0.5 ML SYRINGE 0.25 MG IVPUSH (05:05)
[2022-01-19 07:00] LABS: Basophils Percent Auto 0.2 % (0-2); Eosinophils Percent Auto 0.2 % (0-4); Imm Gran Abs Auto 0.05 X10*3/uL (0.00-0.03); Imm Gran Pct Auto 0.4 % (0.0-0.4); Lymphocytes Absolute Auto 1.5 X10*3/uL (1.2-4.9); Lymphocytes Percent Auto 11.4 % (20-40); MANUAL DIFF FLAG SCAN; Mean Corpuscular HGB Conc 34.3 g/dl (31.0-36.0); Mean Corpuscular Hemoglobin 32.3 pg (27.0-33.0); Mean Platelet Volume 10.3 fL (9.4-12.4); Monocytes Absolute Auto 1.6 X10*3/uL (0.1-1.2); Monocytes Percent Auto 12.5 % (2-11); Neutrophils Absolute Auto 9.8 x10*3/uL (2.0-8.3); Neutrophils Percent Auto 75.3 % (45-73); Platelet Count 301 X10*3/uL (160-400); Red Blood Count 3.72 X10*6/uL (4.60-5.80); Red Cell Distribution Width 12.9 % (11.0-16.0); SCAN SMEAR FLAG 1
[2022-01-19 07:01] LABS: Mean Corpuscular Volume 94.1 fL (80.0-98.0)
[2022-01-19 07:16] LABS: Anion Gap 15 (12-20); Blood Urea Nitrogen 25 mg/dL (9-16); Calcium 8.7 mg/dL (8.4-10.2); Carbon Dioxide 23 mmol/L (22-29); Chloride 107 mmol/L (96-108); Creatinine Clr Calc Pharmacy 74.7; Estimated Glomerular Filt Rate > 60; Glucose Fasting 127 mg/dL (60-99); Sodium 141 mmol/L (135-145)
[2022-01-19] MEDS: oxyCODONE HCl ER 10 MG TAB.ER.12H PO (07:23)
[2022-01-19] MEDS: Celecoxib 200 MG CAPSULE PO ×2 (07:24→22:51)
[2022-01-19] MEDS: Docusate Sodium 100 MG CAPSULE PO ×2 (07:24→22:52)
--- NOTE | 2022-01-19 07:41 | PM.PNORT ---
Subjective Subjective Date of Service: 01/19/22 Interval history: POD1 s/p RTKA. No overnight events. Pain is well managed. Patient is resting comfortably in bed. No additional complaints. Physical Exam Vital Signs: Vital Signs: Last Vital Signs Temp 99.0 F 01/19/22 03:37 Pulse 75 01/19/22 03:37 Resp 16 01/19/22 03:37 BP 140/68 H 01/19/22 03:37 Pulse Ox 93 01/19/22 03:37 O2 Del Method 01/19/22 03:37 O2 Flow Rate 6 01/18/22 13:48 BMI result Body Mass Index 30.7 Const: General: cooperative, healthy appearing and no acute distress Resp: Effort & Inspection: normal respiratory effort and able to speak in complete sentences Cardio: Rate: regular rate Peripheral pulses: Peripheral pulses 2+ throughout GI: Palpation (GI): Soft to palpation Skin: Lesions: no lesions Rashes: no rashes Extrem: Other: Right knee dressing is clean, dry, and intact. Able to dorsiflex and plantarflex. NVI. Procedures Date of Service Date of Service: 01/19/22 Progress Note: A&P Assessment and plan (1) Status post total knee replacement, right: Status: Acute Plan Continue pain mgmnt Begin ASA for dvt ppx begin PT for RTKA Dispo planning-Pending PT eval, pain mgmnt Time Spent With Patient Time: Total time spent is greater than 50% in coordination of care (as documented) at patient's floor/unit and/or counseling patient: Quality Stroke Does the patient have a stroke diagnosis?: No VTE Prior VTE?: No VTE Risk Level:: Medical - moderate - high VTE Device Contraindication: N/A - Device Ordered VTE Drug Contraindication: N/A - Med Ordered
[2022-01-19] MEDS: ondansetron HCL 4 MG/2 ML VIAL IVPUSH (07:55)
[2022-01-19 07:58] LABS: SLIDE REVIEW VERIFIED
--- NOTE | 2022-01-19 07:59 | P.PNOP_ITS ---
Subjective Subjective Date of Service: 01/19/22 Interval history: POd 1 s/p RT TKA no overnight events resting in bed, pain is better ocntrolled denes cp, sob, palpitations Physical Exam Vital Signs: Vital Signs: Last Vital Signs Temp 99.0 F 01/19/22 03:37 Pulse 75 01/19/22 03:37 Resp 16 01/19/22 03:37 BP 140/68 H 01/19/22 03:37 Pulse Ox 93 01/19/22 03:37 O2 Del Method 01/19/22 03:37 O2 Flow Rate 6 01/18/22 13:48 BMI result Body Mass Index 30.7 Const: General: cooperative, healthy appearing and no acute distress Resp: Effort & Inspection: normal respiratory effort and able to speak in complete sentences Cardio: Rate: regular rate Peripheral pulses: Peripheral pulses 2+ throughout GI: Palpation (GI): Soft to palpation Skin: General skin exam: no rashes or lesions noted Extrem: Other: bandage clean dry and intact. Sandra intact. No erythema or joint effusion. Calf supple nontender. Neurovascularly intact. Procedures Date of Service Date of Service: 01/19/22 Progress Note: A&P Assessment and plan (1) Status post total knee replacement, right: Status: Acute Assessment and Plan: * Continue pain mgmnt * Begin Aspirin for dvt ppx * begin PT for RT TKA * Dispo planning-Pending PT eval, pain mgmnt Time Spent With Patient Time: Total time spent is greater than 50% in coordination of care (as documented) at patient's floor/unit and/or counseling patient: Quality Stroke Does the patient have a stroke diagnosis?: No VTE Prior VTE?: No VTE Risk Level:: Medical - moderate - high VTE Device Contraindication: N/A - Device Ordered VTE Drug Contraindication: N/A - Med Ordered
[2022-01-19] MEDS: lisinopriL 20 MG TABLET PO (09:31)
--- NOTE | 2022-01-19 09:44 | MHC.CM.PN ---
Addendum entered by Fernanda Isaacs RN 01/19/22 10:01: PER CONVERSATION WITH [facility], REFERRAL PLACED TO [facility] Addendum entered by Fernanda Isaacs RN 01/19/22 09:52: ACCORDING TO [employer] INFO, ALSO COVID KENNEDYX ON 07.26.21 Original Note: PATIENT LIVES WITH /HCP (ON FILE AND VERIFIED) HE HAS A CANE AND WALKER IN THE HOME. COVID VAX X 3. [facility] 06/29/20 07/27/20 02/01/21 PLAN IS HOME WITH SERVICES. PATIENT STATES THAT HE IS ALREADY SET UP WITH HOME P.T. CASE MANAGEMENT TO VERIFY. SDS SO NO IMM
[2022-01-19] MEDS: Aspirin 325 MG TABLET PO ×2 (12:38→22:52)
--- NOTE | 2022-01-19 14:42 | HO.POSTANES ---
Post Anesthesia Evaluation Post Anesthesia Evaluation Vital Signs: Vital Signs Temp Pulse Resp BP Pulse Ox O2 Del Method 01/19/22 14:32 Room Air 01/19/22 14:09 81 142/67 H 93 01/19/22 11:36 97.6 F 80 18 157/76 H 94 Room Air 01/19/22 13:55 98.7 F 81 18 142/67 H 93 Room Air 01/19/22 08:00 98.9 F 75 18 165/81 H 94 Room Air 01/19/22 08:05 97 98 01/19/22 03:37 99.0 F 75 16 140/68 H 93 Room Air Anesthesia: Spinal and Nerve Block Mental Status: Awake Pain Control: Satisfactory Nausea/Vomiting: None Hydration: Adequate Anesthesia-Related Issues: No Anes. Related Issues
[2022-01-19] MEDS: 0.9 % Sodium Chloride Flush 3 ML SYRINGE IVFLUSH (15:55)
[2022-01-20] VITALS: BP 160/50; PULSE 89; RESP 18; TEMP 36; O2SAT 93
[2022-01-20 03:59] VITALS: BP 154/70; PULSE 79; RESP 16; TEMP 36.9; O2SAT 95
[2022-01-20 06:16] LABS: MANUAL DIFF FLAG NO
[2022-01-20 06:25] LABS: Basophils Percent Auto 0.3 % (0-2); Eosinophils Absolute Auto 0.1 X10*3/uL (0.0-0.4); Eosinophils Percent Auto 0.7 % (0-4); Hematocrit 33.7 % (42.0-52.0); Hemoglobin 11.7 g/dl (14.0-18.0); Imm Gran Abs Auto 0.06 X10*3/uL (0.00-0.03); Imm Gran Pct Auto 0.5 % (0.0-0.4); Lymphocytes Absolute Auto 1.3 X10*3/uL (1.2-4.9); Mean Corpuscular HGB Conc 34.7 g/dl (31.0-36.0); Mean Corpuscular Hemoglobin 32.1 pg (27.0-33.0); Mean Corpuscular Volume 92.6 fL (80.0-98.0); Mean Platelet Volume 10.3 fL (9.4-12.4); Monocytes Absolute Auto 1.5 X10*3/uL (0.1-1.2); Monocytes Percent Auto 12.3 % (2-11); Neutrophils Absolute Auto 9.1 x10*3/uL (2.0-8.3); Neutrophils Percent Auto 75.2 % (45-73); Platelet Count 255 X10*3/uL (160-400); Red Blood Count 3.64 X10*6/uL (4.60-5.80); Red Cell Distribution Width 12.7 % (11.0-16.0); White Blood Count 12.1 X10*3/uL (4.8-10.8)
[2022-01-20 06:33] LABS: Anion Gap 14 (12-20); Blood Urea Nitrogen 16 mg/dL (9-16); Calcium 8.6 mg/dL (8.4-10.2); Carbon Dioxide 24 mmol/L (22-29); Chloride 107 mmol/L (96-108); Creatinine Clr Calc Pharmacy 87.4; Estimated Glomerular Filt Rate > 60; Glucose Fasting 117 mg/dL (60-99); Potassium 3.8 mmol/L (3.3-5.1); Sodium 141 mmol/L (135-145)
[2022-01-20 08:00] VITALS: BP 140/78; PULSE 85; RESP 18; TEMP 37.2; O2SAT 96
--- NOTE | 2022-01-20 08:28 | P.DS_ITS ---
DS: Providers Provider Date of Service: 01/20/22 Primary care physician: Trena Fitzgerald MD Consults: 01/18/22 16:00 Consult to Hospitalist Routine Consulting Provider: Hospitalist Reason For Exam: HTN DS: Diagnosis Discharge Diagnosis (1) Status post total knee replacement, right: Status: Acute DS: Summary Hospital Course Hospital Course: The patient underwent a successful right total knee arthroplasty, they were transferred to PACU and then to the floor to recover. During their stay, their vitals were stable, afebrile at 98.5. Labs were unremarkable, H/H 11.7/33.7. POD 1 they were started on Aspirin 325mg po bid for DVT ppx, they also received Physical Therapy services twice a day. Prior to discharge, their dressing was changed, incision clean dry and intact, new Aquacel dressing applied and the plan was to be discharged home with VNA services. Time Spent with Patient Time attestation: Total time spent providing and/or coordinating discharge services: Discharge coordination time: Less than 30 minutes Quality: Safe Use of Opioids Does Pt have an Active Cancer Diagnosis on the Problem List?: No Quality: Stroke Does the patient have a stroke diagnosis?: No Physical Exam Vital Signs: Vital Signs: Last Vital Signs Temp 98.9 F 01/20/22 08:00 Pulse 85 01/20/22 08:00 Resp 18 01/20/22 08:00 BP 140/78 H 01/20/22 08:00 Pulse Ox 96 01/20/22 08:00 O2 Del Method 01/20/22 08:00 O2 Flow Rate 6 01/18/22 13:48 Oxygen Flow Rate 93 01/19/22 14:32 BMI result Body Mass Index 30.7 Const: General: cooperative, healthy appearing and no acute distress Resp: Effort & Inspection: normal respiratory effort and able to speak in complete sentences Cardio: Rate: regular rate Peripheral pulses: Peripheral pulses 2+ throughout GI: Palpation (GI): Soft to palpation Skin: Lesions: no lesions Rashes: no rashes Extrem: Other: Right knee incision site is c/d/i. Sandra intact. No erythema or drainage. able to dorsiflex and plantarflex. NVI. DS: Data Data Completed and Pending Pending studies at discharge: Pending at discharge 01/18/22 12:27 Surgical [PTH] Routine Labs on day of discharge: Laboratory Results - last 24 hr 01/20/22 01/20/22 05:12 05:12 WBC 12.1 H RBC 3.64 L Hgb 11.7 L Hct 33.7 L MCV 92.6 MCH 32.1 MCHC 34.7 RDW 12.7 Plt Count 255 MPV 10.3 Immature Gran % (Auto) 0.5 H Neut % (Auto) 75.2 H Lymph % (Auto) 11.0 L [place] % (Auto) 12.3 H Eos % (Auto) 0.7 Baso % (Auto) 0.3 Lymph # (Auto) 1.3 [place] # (Auto) 1.5 H Eos # (Auto) 0.1 Baso # (Auto) 0.0 Abs Immat Gran (auto) 0.06 H Absolute Neuts (auto) 9.1 H Absolute Nucleated RBC 0.000 Nucleated RBC % (auto) 0.0 Sodium 141 Potassium 3.8 Chloride 107 Carbon Dioxide 24 Anion Gap 14 BUN 16 Creatinine 0.82 Estim Creat Clear Calc 87.4 Estimated GFR > 60 Fasting Glucose 117 H Calcium 8.6 Discharge Plan Discharge Patient Disposition: Home, Self-Care Referrals: Jovanni Massey PA-C [Physician All Terrain Vehicle Racer] - 02/03/22 12:30 pm Discharge Medications: New aspirin 325 mg Tablet 325 mg PO BID 42 Days Qty: 84 0RF celecoxib 200 mg Capsule 200 mg PO BID 30 Days Qty: 60 0RF hydrocodone-acetaminophen 10-325 mg Tablet 1 tab PO Q4H PRN (Reason: Pain, Moderate (Pain Scale 4-6) 7 Days Qty: 42 0RF Rx Instructions: Partial Fill upon patient request. docusate sodium 100 mg Capsule 100 mg PO BID 30 Days Qty: 60 0RF Continued hydrochlorothiazide 25 mg tablet 25 mg PO QAM 90 Days Qty: 90 0RF lisinopril 40 mg tablet 40 mg PO DAILY 90 Days Qty: 90 0RF amlodipine 5 mg tablet 5 mg PO DAILY 90 Days Qty: 90 1RF Discharge Orders: Discharge Order (Routine); Ordered 01/20/22 Ordered By: Deb Caban Activity Restrictions/Additional Instructions: Physical Therapy for ROM 0-120, quad strength, gait training. Use walker for ambulation Limit stair climbing, No shower, No tub bath, No driving Continue anticoagulant Aspirin for 6 weeks Keep Aquacel dressing clean, dry and intact. Follow up with orthopedics in 2 weeks
--- NOTE | 2022-01-20 08:35 | W.MHC.F2F ---
Service Date Service Date: 01/20/22 Encounter Date of encounter: 01/20/22 Reasons for Services Signs and symptoms assessed: Pt. is considered homebound due to recent surgery. Unable to drive, poor balance, poor gait mechanics s/p Right total knee arthroplasty Reason for physical therapy: home safety and mobility, therapeutic exercises, restore joint function, gait/transfer training, assess need for DME and ADL training Reason for occupational therapy: home safety and mobility, therapeutic exercises, restore joint function, gait/transfer training, assess need for DME and ADL training Homebound: Leaving the home is medically contraindicated at this time without the asist of a device and/or another person due th the listed conditions above and below. Reason homebound: unsteady gait / fall risk, leg weakness, pain with ambulation, pain with transfers, poor balance / fall risk and unable to drive Homebound supporting statement: Pt. is considered homebound due to recent surgery. Unable to drive, poor balance, poor gait mechanics. Certification: Based on the above findings, I certify that this patient is confined to the home and needs intermittent nursing home care, physical therapy and/or speech therapy, or continues to need occupational therapy. The patient is under my care, and I have initiated the establishment of the plan of care. The patient will be followed by a physician who will periodically review the plan of care.
[2022-01-20] MEDS: lisinopriL 20 MG TABLET PO (08:36)
[2022-01-20] MEDS: Aspirin 325 MG TABLET PO (08:36)
[2022-01-20] MEDS: Docusate Sodium 100 MG CAPSULE PO (08:36)
[2022-01-20] MEDS: Celecoxib 200 MG CAPSULE PO (08:36)
[2022-01-20] MEDS: 0.9 % Sodium Chloride Flush 3 ML SYRINGE IVFLUSH (08:37)
--- NOTE | 2022-01-20 09:02 | MHC.CM.PN ---
PT TO DC HOME TODAY WITH [facility] TO TRANSPORT
[2022-01-20 11:10] VITALS: BP 140/78; PULSE 85; O2SAT 96
== END 2022-01-20 11:45 | disposition home or self-care (01) ==
LOC: HO.SSS 09:23 → HO.S3 14:40
PROVIDERS: Physician Assistant; PCP Internal Medicine; Visit Provider Orthopaedic Surgery
PROC: (CPT 27447; principal; 2022-01-18 11:50)
DX: M17.31 Unilateral post-traumatic osteoarthritis, right knee (principal); T14.90XS Injury, unspecified, sequela; M17.11 Unilateral primary osteoarthritis, right knee; I10 Essential (primary) hypertension; R73.03 Prediabetes; F32.A Depression, unspecified; E66.9 Obesity, unspecified; Z68.31 Body mass index [BMI] 31.0-31.9, adult; Z79.899 Other long term (current) drug therapy; Z91.010 Allergy to peanuts; Z98.890 Other specified postprocedural states; Z20.822 Contact with and (suspected) exposure to COVID-19
CPT/HCPCS: 27447; 36415; 73560; 80048; 80051; 80053; 80061; 82565; 85014; 85018; 85025; 86850; 86900; 86901; 87635; 87640; 87641; 88305; 88311; 93005; 97110; 97116; 97161; 97530; C1776; J0690; J1170; J2250; J2370; J2405; J2550; J2795

== ENCOUNTER 2022-03-30 09:00 | Outpatient (RCR) | payer MEDICARE, SELFPAY ==
--- NOTE | 2022-02-03 14:20 | MHC.PT.EP ---
[facility] [place] Office [place] Office [place] Office [address] Lawrence Mcgee [address] [phone] F: [phone] F: [phone] F: [phone] F: [phone] Physical Therapy Plan of Care Date of Evaluation: Date of Surgery: 01/18/22 Diagnosis: S/P RIGHT TKA Assessment: 72 YO MALE REF TO PT S/P RIGHT TKR ON 01/18/22- HE RESIDES W HIS SPOUSE IN A 2 LEVEL HOME AND IS CURRENTLY AMB W A W/WALKER -> USING A CANE ON THE STAIRS. OBJECTIVE FINDINGS: LIMITED AROM Rt KNEE, TIGHT PSOAS MM MICHAEL AND DECR ANKLE DF MICHAEL; DECR STRENGTH IN PROX / LUMBOPELVIC AND Rt LE, MILD POST-OP PAIN IN RIGHT KNEE ,AND HEALING ANT Rt KNEE INCISION. FUNCTIONALLY, Pt IS AMB W A W/WALKER- HE HAS COMPENSATORY GAIT, MODIFIED STAIR MGMT, DECR STANDING, AND DECR MANPREET TO ADLs REQ Rt KNEE FLEX OR TERMINAL KNEE EXT. Pt IS A VERY GOOD PT CANDIDATE TO GUIDE HIM IN HIS POST-OP TKR COURSE, ADDRESSING THE ABOVE FINDINGS, PAIN MGMT, AND MAXIMIZING FUNCTIONAL INDEPENDENCE. Frequency and Duration: The patient will be seen 2 x WK x 10 WKS Short Term Goals: *EDUC Pt RE SELF-MGMT OF POST-OP STATUS TO PROMOTE OPTIMAL HEALING AND REGAIN ROM Rt KNEE *Pt WILL DEMON EFFICIENT GAIT MECHANICS W LEAST RESTRICTIVE ASST DEVICE ON LEVEL GROUND AND STAIRS *Pt'S RIGHT KNEE PAIN WILL DECR TO 2-06/10 *Pt DEMON APPROP BED MOB/ POSITIONING/ SIT <-> STAND/ CAR TRANSFERS Alf Goals: *Pt DEMON Rt KNEE AROM 0* TO 120* *Pt WILL IMPROVE LUMBOPELVIC/ Rt LE STRENGTH TO AT LEAST 5-/5 *Pt RESUME AT LEAST PLOF EVIDENT W IMPROVED LEFI SCORE (AT EVAL 31/80 ) *Pt INDEP W PROGR HEP AND SELF-SX MGMT TECHN Treatment Plan: Modalities to reduce pain, spasms and effusion. Manual therapy to restore motion and function. Therapeutic exercise to improve strength and flexibility. Neuromuscular re-education for posture and balance. Therapeutic activities to return to functional activities of daily living. Electronically signed by: PHILLY HUGHES PT Please sign and return to therapist. Thank you for your referral.
--- NOTE | 2022-03-30 12:13 | MHC.PT.DC ---
[facility] [place] Office [place] Office [place] Office [address] Lawrence Mcgee [address] [facility] [phone] F: [phone] F: [phone] F: [phone] F: [phone] Physical Therapy Discharge Report Diagnosis: S/P RIGHT TKA Date of Surgery: 01/18/22 Date of Evaluation: 02/03/22 Date of Discharge: 03/30/22 Treatments to Date: 13 Cancellations to Date: No Shows to Date: Discharge Status: Achieved Goals Improved Function Independent with HEP Discharge Summary: 03/30: Pradeep has been an active and motivated participant in his therapy in and out of the clinic. We are in agreement with IA as he has met all of his therapeutic goals, is I with his home program, has achieved his therapeutic goals and is managed of his pain. 1-128 ROM today Electronically signed by: Néstor Moncada PT. Please sign and return to therapist. Thank you for your referral.
== END 2022-03-30 12:14 | disposition home or self-care (01) ==
LOC: HO.PTCHIC 09:00
PROVIDERS: Visit Provider Physician Assistant
DX: Z96.651 Presence of right artificial knee joint (principal)
CPT/HCPCS: 97110; 97116; 97140; 97162; 97530

== ENCOUNTER 2022-04-15 09:24 | Outpatient (REF) | payer MEDICARE, SELFPAY ==
--- NOTE | ~2022-04-15 | XR_ITS ---
EXAMINATION: X-RAY AP STANDING VIEW OF BOTH KNEES LATERAL AND SUNRISE VIEWS OF THE RIGHT KNEE CLINICAL INFORMATION: Pain. COMPARISON: Radiograph of the right knee 01/18/2022. Bilateral standing views 01/04/2021. TECHNIQUE: AP standing view of both knees [place] and lateral views of the right knee. FINDINGS: Left knee: Partially imaged lateral fixation plate with multiple traversing screws along the left tibia with no evidence of hardware failure in the included portions. Chronic deformity of the lateral tibial plateau. Redemonstration of chondrocalcinosis and moderate to severe joint space narrowing with vacuum phenomena in the medial greater than lateral compartments. Right knee: Total arthroplasty with no evidence of hardware failure. No periprosthetic fracture. XR/XR knee standing BI IMPRESSION: LEFT KNEE: No acute fracture or subluxation. Moderate to severe osteoarthritis with chondrocalcinosis, not significantly changed compared to 01/04/2021. RIGHT KNEE: Right total knee arthroplasty without evidence of hardware failure or periprosthetic fracture.
--- NOTE | ~2022-04-15 | XR_ITS ---
EXAMINATION: X-RAY AP STANDING VIEW OF BOTH KNEES LATERAL AND SUNRISE VIEWS OF THE RIGHT KNEE CLINICAL INFORMATION: Pain. COMPARISON: Radiograph of the right knee 01/18/2022. Bilateral standing views 01/04/2021. TECHNIQUE: AP standing view of both knees [place] and lateral views of the right knee. FINDINGS: Left knee: Partially imaged lateral fixation plate with multiple traversing screws along the left tibia with no evidence of hardware failure in the included portions. Chronic deformity of the lateral tibial plateau. Redemonstration of chondrocalcinosis and moderate to severe joint space narrowing with vacuum phenomena in the medial greater than lateral compartments. Right knee: Total arthroplasty with no evidence of hardware failure. No periprosthetic fracture. XR/XR knee RT 2V IMPRESSION: LEFT KNEE: No acute fracture or subluxation. Moderate to severe osteoarthritis with chondrocalcinosis, not significantly changed compared to 01/04/2021. RIGHT KNEE: Right total knee arthroplasty without evidence of hardware failure or periprosthetic fracture.
== END 2022-04-15 09:25 | disposition home or self-care (01) ==
LOC: HO.HOSX 09:24
PROVIDERS: Visit Provider Orthopaedic Surgery
DX: Z47.1 Aftercare following joint replacement surgery (principal); Z96.651 Presence of right artificial knee joint
CPT/HCPCS: 73560; 73565

== ENCOUNTER → 2022-05-09 10:44 | Outpatient (BNVA) | payer MEDICARE, SELFPAY | PROVIDERS: PCP Internal Medicine; Referring Provider Internal Medicine; Visit Provider Internal Medicine Cardiovascular Disease | DX: R94.31 Abnormal electrocardiogram [ECG] [EKG] (principal); I10 Essential (primary) hypertension; R73.03 Prediabetes | CPT/HCPCS: 99212 ==

== ENCOUNTER → 2022-05-17 09:20 | Outpatient (BNVA) | payer MEDICARE, SELFPAY | PROVIDERS: PCP Internal Medicine; Visit Provider Internal Medicine Cardiovascular Disease | DX: Z13.89 Encounter for screening for other disorder (principal) ==

== ENCOUNTER 2022-06-24 06:34 | Outpatient (REF) | payer MEDICARE, SELFPAY ==
[2022-06-24 11:13] LABS: MANUAL DIFF FLAG NO
[2022-06-24 11:22] LABS: Basophils Absolute Auto 0.1 X10*3/uL (0.0-0.2); Basophils Percent Auto 0.5 % (0-2); Eosinophils Absolute Auto 0.4 X10*3/uL (0.0-0.4); Hematocrit 40.4 % (42.0-52.0); Hemoglobin 13.4 g/dl (14.0-18.0); Imm Gran Abs Auto 0.03 X10*3/uL (0.00-0.03); Imm Gran Pct Auto 0.3 % (0.0-0.4); Lymphocytes Absolute Auto 2.3 X10*3/uL (1.2-4.9); Lymphocytes Percent Auto 22.4 % (20-40); Mean Corpuscular HGB Conc 33.2 g/dl (31.0-36.0); Mean Corpuscular Volume 90.6 fL (80.0-98.0); Mean Platelet Volume 10.1 fL (9.4-12.4); Monocytes Absolute Auto 0.9 X10*3/uL (0.1-1.2); Monocytes Percent Auto 9.1 % (2-11); Neutrophils Absolute Auto 6.6 x10*3/uL (2.0-8.3); Neutrophils Percent Auto 63.7 % (45-73); Platelet Count 401 X10*3/uL (160-400); Red Blood Count 4.46 X10*6/uL (4.60-5.80); Red Cell Distribution Width 14.9 % (11.0-16.0); White Blood Count 10.3 X10*3/uL (4.8-10.8)
[2022-06-24 11:43] LABS: Alanine Aminotransferase 18 U/L (0-40); Alkaline Phosphatase 77 U/L (39-117); Anion Gap 13 (12-20); Aspartate Amino Transferase 15 U/L (5-37); Bilirubin Total 0.5 mg/dL (0.0-1.0); Blood Urea Nitrogen 23 mg/dL (9-16); Calcium 9.2 mg/dL (8.4-10.2); Carbon Dioxide 26 mmol/L (22-29); Chloride 107 mmol/L (96-108); Cholesterol 189 mg/dL; Estimated Glomerular Filt Rate > 60; Glucose Fasting 115 mg/dL (60-99); HDL Cholesterol 47 mg/dL; LDL Cholesterol Calculated 127 mg/dl; Potassium 3.8 mmol/L (3.3-5.1); Sodium 142 mmol/L (135-145); Total Protein 6.8 g/dL (6.5-8.0); Triglycerides 75 mg/dL
== END 2022-06-24 06:35 | disposition home or self-care (01) ==
LOC: HO.HMGCLDS 06:34
PROVIDERS: PCP Internal Medicine; Visit Provider Internal Medicine
DX: E66.9 Obesity, unspecified (principal); R73.03 Prediabetes; I10 Essential (primary) hypertension
CPT/HCPCS: 36415; 80053; 80061; 85025

== ENCOUNTER → 2022-07-04 09:51 | Outpatient (BNVA) | payer MEDICARE, SELFPAY | PROVIDERS: PCP Internal Medicine; Referring Provider Internal Medicine; Visit Provider Nurse Practitioner Family | DX: Z12.11 Encounter for screening for malignant neoplasm of colon (principal); K64.9 Unspecified hemorrhoids; K59.1 Functional diarrhea | CPT/HCPCS: 99212 ==

== ENCOUNTER 2022-08-17 07:31 | Day surgery (SDC) | payer MEDICARE, SELFPAY ==
[2022-08-15 12:33] VITALS: BMI 30.7
--- NOTE | 2022-08-16 11:48 | HO.ANESPROP2 ---
Documented by User: Che Ruggiero NP 08/16/22 11:50 HPI - Anesthesia Eval Consult details Narrative: 72yo M for Colonoscopy [facility] Active Problems Active Problems: All Active Problems (Updated 01/28/22 @ 00:03 by Background Daemon) Status post total knee replacement, right (Acute) Pre-diabetes (Acute) Preop cardiovascular exam (Acute) Abnormal EKG (Acute) Pre-op evaluation (Acute) Obesity (Acute) Impacted cerumen of both ears (Acute) Upper respiratory tract infection (Acute) Internal derangement of right knee (Acute) Obesity due to excess calories (Acute) Unilateral post-traumatic osteoarthritis, right knee (Acute) Encounter for general adult medical examination with abnormal findings (Acute) Colon cancer screening (Acute) Hypertension, essential (Acute) Past Medical History Medical History History of depression Hypertension, essential Osteoarthritis of right knee Pre-diabetes Family History Family history of problems with anesthesia: No Surgical History Surgical History History of lumbar discectomy History of surgery on extremity History of total right knee replacement Hx of arthroscopy of left knee Hx of colonoscopy Hx of elbow surgery Hx of hernia repair Hx of repair of rotator cuff History of Problems with Anesthesia: No Social History Social History Household Members: Spouse Housing: House Are you a primary plant health care technician to a significant other at home: No Do you presently have visiting nurse or other home services: No Alcohol intake: current Alcohol intake frequency: holidays/special occasions only Patient Tobacco Use Status: Never used Tobacco e-Cigarette/Vaping Use: Never Used Second Hand Smoke Exposure: No Use of substances other than those prescribed or required for medical reasons: No Have you been hit, kicked, punched, or otherwise hurt by someone within the past year? If so, by whom?: No Are you DNR?: Yes Advance Directives: No Advance Directives Information Provided: No Advance Directives on File: No Recently lost weight without trying: No Eating poorly because of decreased appetite: No Nutrition Risks: No Nutritional Risk Poor oral hygiene: No service: No Current occupational status: retired Current occupation: Left handed Cognitive needs: No Hearing needs: No Vision needs: No Meds Allergies Allergy/AdvReac Type Severity Reaction Status Date / Time hydromorphone [From Dilaudid] AdvReac Severe Agitated Verified 07/04/22 10:11 peanuts Allergy Severe anaphylaxis Uncoded 05/09/22 10:59 Exam Exam Date and Time: August 16, 2022 1148 Height,Weight and Vital Signs: Height 5 ft 6 in Weight 86.183 kg Pertinent Lab Results Pertinent Lab Results: Laboratory Tests 06/24/22 06/24/22 06:40 06:40 WBC 10.3 Hgb 13.4 L Hct 40.4 L Plt Count 401 H D Sodium 142 Potassium 3.8 Chloride 107 Carbon Dioxide 26 BUN 23 H Creatinine 1.02 Narrative Narrative: EKG 12/2021 Vent. Rate : 064 BPM ? ? Atrial Rate : 064 BPM ?? P-R Int : 144 ms? QRS Dur : 102 ms ? ? QT Int : 420 ms ? ? ? P-R-T Axes : -02 031 -19 degrees ?? QTc Int : 433 ms ? Sinus rhythm with occasional Premature ventricular complexes T wave abnormality, consider lateral ischemia T wave abnormality, consider inferior ischemia Abnormal ECG No previous ECGs available ECHO 01/2022 Conclusions: - Normal left ventricular size and systolic function. There is ? mildly increased left ventricular wall thickness.? The visually? estimated ejection fraction is between 60-65%. ? - There is normal right ventricular systolic function.? RV size? is on upper limit of normal. ? - The left atrium is likely dilated.? The right atrium is normal in size. ? - There is mild dilatation of the ascending aorta measuring 3.50 cm.? Assessment and Plan Assessment Anesthesia Assessment: Chart Reviewed Final Anesthetic Review Family History of Problems with Anesthesia: No History of Problems with Anesthesia: No Documented by User: Violeta Rodriguez MD 08/17/22 08:24 [facility] Past Medical History Medical History History of depression Hypertension, essential Osteoarthritis of right knee Pre-diabetes Surgical History Surgical History History of lumbar discectomy History of surgery on extremity History of total right knee replacement Hx of arthroscopy of left knee Hx of colonoscopy Hx of elbow surgery Hx of hernia repair Hx of repair of rotator cuff Social History Social History Household Members: Spouse Housing: House Are you a primary plant health care technician to a significant other at home: No Do you presently have visiting nurse or other home services: No Alcohol intake: current Alcohol intake frequency: holidays/special occasions only Patient Tobacco Use Status: Never used Tobacco e-Cigarette/Vaping Use: Never Used Second Hand Smoke Exposure: No Use of substances other than those prescribed or required for medical reasons: No Have you been hit, kicked, punched, or otherwise hurt by someone within the past year? If so, by whom?: No Are you DNR?: Yes Advance Directives: No Advance Directives Information Provided: No Advance Directives on File: No Recently lost weight without trying: No Eating poorly because of decreased appetite: No Nutrition Risks: No Nutritional Risk Poor oral hygiene: No service: No Current occupational status: retired Current occupation: Left handed Cognitive needs: No Hearing needs: No Vision needs: No Meds Allergies Allergy/AdvReac Type Severity Reaction Status Date / Time hydromorphone [From Dilaudid] AdvReac Severe Agitated Verified 07/04/22 10:11 peanuts Allergy Severe anaphylaxis Uncoded 05/09/22 10:59 Exam Airway Mallampati Class: II (multiple caps laterally) TM Dist: >3cm Neck ROM: Full Heart: rrr Lungs: cta Assessment and Plan Assessment Anesthesia Assessment: Anesthesia Plan Discussed Final Anesthetic Review NPO: Yes ASA Class: II Final Preanesthetic Review: No Changes in Pt Med Stat, Meds/Allgs Chart Reviewed and Consent Obtained/Reviewed Patient Risk: Intermediate Procedure Risk: Intermediate Anesthetic Plan Anesthetic Plan: MAC: Disposition: Standard PACU
[2022-08-17 07:46] VITALS: BP 132/77; PULSE 71; RESP 18; TEMP 36.8; O2SAT 99
[2022-08-17] MEDS: Lactated Ringers 1,000 ML 100 ML IVCONT (08:25)
--- NOTE | 2022-08-17 08:46 | MHC.SHP ---
Pre-Procedural Eval Section A Date of Service: 08/17/22 Section B Chief Complaint: Constipation, unspecified Details of Present Illness: rectal bleeding Relevant Family History (Specify if Yes): No Relevant Social History: None Present Medications: see Short Stay Collaborative assessment Medical History: Significant History (History of depression Hypertension, essential Osteoarthritis of right knee Pre-diabetes) History of Previous Operations: Relevant previous surgery/procedure and date(s) (History of lumbar discectomy History of surgery on extremity History of total right knee replacement Hx of arthroscopy of left knee Hx of colonoscopy Hx of elbow surgery Hx of hernia repair Hx of repair of rotator cuff) Allergies: Allergies Allergy/AdvReac Type Severity Reaction Status Date / Time hydromorphone [From Dilaudid] AdvReac Severe Agitated Verified 07/04/22 10:11 peanuts Allergy Severe anaphylaxis Uncoded 05/09/22 10:59 Review of Systems Sugical H&P ROS: Negative: Constitution, Cardiovascular, Respiratory, Neurological, Psychiatric, Hem-Onc, Allergic/Immunologic, Gastrointestinal, Genitourinary, Musculoskeletal, Integumentary, Endocrine and Eyes/Ears/Nose/Throat Exam Surgical H&P Exam: Normal: HEENT, Normal: Heart, Normal: Lungs, Normal: Extremities, Normal: Abdomen, Normal: Skin and Normal: Neurological Plan Diagnosis/Plan: Unchanged I have reviewed the history and physical and performed a pertinent physical examination on my patient. No changes have occurred unless specified. Time Spent With Patient Time: Total time managing care of this patient today ____ minutes.
--- NOTE | 2022-08-17 10:08 | P.OP_ITS ---
Operative Note Operative Note Date of Service: 08/17/22 Narrative: Operative Information Procedure Description: Colonoscopy Indication: rectal bleeding Anesthesia: MAC COLONOSCOPY Instrument: Olympus variable stiffness pediatric scope 190L Colonoscopy Monitoring: Vital signs and clinical assessment, continuous EKG monitoring, Pulse oximetry, Carbon Dioxide monitoring and blood pressure monitoring were done throughout the procedure. Colon withdrawal time was 24 minutes. Procedure: The patient was placed in the left lateral decubitis position and pre-procedure medications were administered. After a digital rectal examination of the ano-rectum, the video colonoscope was inserted into the rectum and advanced through the colon to the cecum/TI. The colonoscope was slowly withdrawn in a retrograde panoramic fashion and the colon mucosa was carefully examined including a retroflexed view of the rectum. Findings and interventions are described below. Procedure Difficulty: moderate Findings: Terminal Ileum-normal, bx taken bx taken from right colon, transverse, descending, sigmoid, rectum Cecum:normal Ascending Colon: 10-12 mm flat polyp lifted with eleview and removed piece meal with codl snare Transverse Colon -normal Descending Colon:normal Sigmoid Colon: moderate diverticulosis, severe colitis is distal sigmoid Rectum: Retroflexion with small internal hemorrhoids, grade I, severe erythema, and edema in rectum Anorectum - normal Colon preparation: [place] Bowel Preparation Scale Right colon; 2 Transverse colon: 2 Left colon; 2 (0 = Unprepared colon segment with mucosa not seen due to solid stool that cannot be cleared. 1 = Portion of mucosa of the colon segment seen, but other areas of the colon segment not well seen due to staining, residual stool and/or opaque liquid. 2 = Minor amount of residual staining, small fragments of stool and/or opaque liquid, but mucosa of colon segment seen well. 3 = Entire mucosa of colon segment seen well with no residual staining, small fragments of stool or opaque liquid) Impression and Post Procedure Diagnosis: proctosigmoiditis polyp diverticulosis internal hemorrhoids Plan: High fiber diet leaflet Avoid straining at stool, epsom salts and sitz bath, anusol supps or cream Repeat Colonoscopy in 1-2 years or earlier if clinically indicated commence mesalamine enema and PO preparations Above findings were reviewed with the patient and relevant handouts were provided if indicated.
[2022-08-17 10:14] VITALS: BP 91/54; PULSE 72; RESP 16; TEMP 36.3; O2SAT 94
[2022-08-17 10:29] VITALS: BP 100/62; PULSE 70; RESP 16; TEMP 36.4; O2SAT 98
== END 2022-08-17 11:05 | disposition home or self-care (01) ==
PROVIDERS: PCP Internal Medicine; Visit Provider Internal Medicine Gastroenterology
PROC: 0DJD8ZZ Inspection of Lower Intestinal Tract, Via Natural or Artificial Opening Endoscopic (ICD-10-PCS; CPT 45378; principal; 2022-08-17 09:20)
DX: K62.5 Hemorrhage of anus and rectum (principal); K59.00 Constipation, unspecified; D12.2 Benign neoplasm of ascending colon; K64.0 First degree hemorrhoids; K52.9 Noninfective gastroenteritis and colitis, unspecified; K63.89 Other specified diseases of intestine; K57.30 Diverticulosis of large intestine without perforation or abscess without bleeding; I10 Essential (primary) hypertension; R73.03 Prediabetes; Z91.010 Allergy to peanuts; Z88.8 Allergy status to other drugs, medicaments and biological substances; Z96.651 Presence of right artificial knee joint
CPT/HCPCS: 45385; 45380; 45381; 88305

== ENCOUNTER 2022-10-07 06:12 | Outpatient (REF) | payer MEDICARE, SELFPAY ==
[2022-10-07 11:32] LABS: MANUAL DIFF FLAG NO
[2022-10-07 11:55] LABS: Basophils Percent Auto 0.4 % (0-2); Eosinophils Absolute Auto 0.3 X10*3/uL (0.0-0.4); Eosinophils Percent Auto 2.9 % (0-4); Hematocrit 40.4 % (42.0-52.0); Hemoglobin 13.1 g/dl (14.0-18.0); Imm Gran Abs Auto 0.02 X10*3/uL (0.00-0.03); Imm Gran Pct Auto 0.2 % (0.0-0.4); Lymphocytes Absolute Auto 1.5 X10*3/uL (1.2-4.9); Lymphocytes Percent Auto 15.6 % (20-40); Mean Corpuscular HGB Conc 32.4 g/dl (31.0-36.0); Mean Corpuscular Hemoglobin 29.6 pg (27.0-33.0); Mean Corpuscular Volume 91.2 fL (80.0-98.0); Monocytes Absolute Auto 0.7 X10*3/uL (0.1-1.2); Neutrophils Absolute Auto 7.1 x10*3/uL (2.0-8.3); Neutrophils Percent Auto 73.9 % (45-73); Platelet Count 397 X10*3/uL (160-400); Red Blood Count 4.43 X10*6/uL (4.60-5.80); Red Cell Distribution Width 13.7 % (11.0-16.0); White Blood Count 9.6 X10*3/uL (4.8-10.8)
[2022-10-07 12:14] LABS: Estimated Average Glucose 111 mg/dL; Hemoglobin A1c % 5.5 %
[2022-10-07 15:02] LABS: Alanine Aminotransferase 16 U/L (0-40); Albumin Level 3.9 g/dL (3.5-5.0); Alkaline Phosphatase 71 U/L (39-117); Anion Gap 13 (12-20); Aspartate Amino Transferase 18 U/L (5-37); Bilirubin Total 0.4 mg/dL (0.0-1.0); Blood Urea Nitrogen 22 mg/dL (9-16); Calcium 9.6 mg/dL (8.4-10.2); Carbon Dioxide 22 mmol/L (22-29); Chloride 109 mmol/L (96-108); Cholesterol 180 mg/dL; Estimated Glomerular Filt Rate > 60; Glucose Fasting 105 mg/dL (60-99); HDL Cholesterol 46 mg/dL; LDL Cholesterol Calculated 117 mg/dl; Potassium 3.8 mmol/L (3.3-5.1); Sodium 140 mmol/L (135-145); Total Protein 7.7 g/dL (6.5-8.0); Triglycerides 86 mg/dL
== END 2022-10-07 06:13 | disposition home or self-care (01) ==
LOC: HO.HMGCLDS 06:12
PROVIDERS: PCP Internal Medicine; Visit Provider Internal Medicine
DX: E66.09 Other obesity due to excess calories (principal); I10 Essential (primary) hypertension; R73.03 Prediabetes
CPT/HCPCS: 36415; 80053; 80061; 83036; 85025

== ENCOUNTER 2022-10-17 08:03 | Outpatient (AMB) | payer MEDICARE, SELFPAY ==
--- NOTE | 2022-10-17 08:11 | A.OFFVIS_ITS ---
Intake Vital Signs 10/17/22 08:12 Height 5 ft 6 in Weight 188 lb 4.396 oz BMI 30.4 BP 122/69 Blood Pressure Location Lt brachial Position Sitting Pulse 69 Intake Visit Reasons: S/p Gilmore-Dahl Intake Note: Pradeep presents in office as a est.patient for a post-op for colo pt got colo done 08.17.22 PT CC: pt reports having no concerns , just a couple of questions pt denies any other GI Issues Priming Powder Premix Blender Required: No Accompanied by: Spouse Allergies hydromorphone [From Dilaudid] Adverse Reaction (Severe, Verified 10/17/22 08:11) Agitated peanuts Allergy (Severe, Uncoded 10/17/22 08:11) anaphylaxis HPI S/p Gilmore-Dahl HPI Details LAST VISIT Colon cancer screening Will schedule patient for procedure today. What to expect before during and after procedure discussed with patient. The importance of good bowel prep and clear liquid diet day before procedure discussed with him as well. Hemorrhoid Script for Proctosol given to patient. Discussed with patient that if he needs to be referred to surgery when he goes for colonoscopy the provider will let us know depending on what they find. Script for Proctosol given Diarrhea Patient reports to have loose stools in the last couple weeks. Will give him script for Citrucel to help him bulk his stools. However discussed with patient the importance of stopping Citrucel 1 week before colonoscopy. I will see him after the procedure, sooner on as needed basis. Patient is agreeable to this plan and verbalizes understanding of instructions. He was given the opportunity to ask questions and all questions answered. ? Thank you for allowing me to participate in his care Plan Medications New methylcellulose (laxative) (Citrucel) take it with full glass of water 500 mg PO DAILY 90 tabs 2RF K59.00 hydrocortisone 2.5% (Proctosol HC) 1 appl IA BID-QID PRN 30 grams 2RF hemorrhoids K64.9 COLONOSCOPY: Findings: Terminal Ileum-normal, bx taken bx taken from right colon, transverse, descending, sigmoid, rectum Cecum:normal Ascending Colon: 10-12 mm flat polyp lifted with eleview and removed piece meal with codl snare Transverse Colon -normal Descending Colon:normal Sigmoid Colon: moderate diverticulosis, severe colitis is distal sigmoid Rectum: Retroflexion with small internal hemorrhoids, grade I, severe erythema, and edema in rectum Anorectum - normal Colon preparation: [place] Bowel Preparation Scale Right colon; 2 Transverse colon: 2 Left colon; 2 (0 = Unprepared colon segment with mucosa not seen due to solid stool that cannot be cleared. 1 = Portion of mucosa of the colon segment seen, but other areas of the colon segment not well seen due to staining, residual stool and/or opaque liquid. 2 = Minor amount of residual staining, small fragments of stool and/or opaque liquid, but mucosa of colon segment seen well. 3 = Entire mucosa of colon segment seen well with no residual staining, small f ragments of stool or opaque liquid) Impression and Post Procedure Diagnosis: proctosigmoiditis polyp diverticulosis internal hemorrhoids Plan: High fiber diet leaflet Avoid straining at stool, epsom salts and sitz bath, anusol supps or cream Repeat Colonoscopy in 1-2 years or earlier if clinically indicated commence mesalamine enema and PO preparations PATHOLOGY RESULTS Diagnosis A.? Terminal ileum, biopsy:? Ileal mucosa with preserved villi and focal lamina propria hemorrhage; otherwise no specific change; no ileitis, granulomas or dysplasia.? B.? Colon, right, biopsy:? Colonic mucosa with focal lamina propria hemorrhage, otherwise no specific change; no colitis, granulomas or dysplasia.? C.? Colon, ascending, polyp:? Tubular adenoma; negative for high-grade dysplasia and carcinoma.? D.? Colon, transverse, biopsy:? Colonic mucosa with focal lamina propria hemorrhage and prominent lymphoid aggregate, otherwise no specific change; no colitis, granulomas or dysplasia.? E.? Colon, descending, biopsy:? Colonic mucosa with reactive lymphoid aggregate, otherwise no specific change; no colitis, granulomas or dysplasia.? F.? Colon, sigmoid, biopsy:? Chronic colitis with moderate activity; negative for dysplasia. G.? Colon, rectum, biopsy:? Chronic colitis/proctitis with moderate activity; negative for dysplasia. Comment: (F and G):? Appearances are consistent with chronic inflammatory bowel disease. TODAY'S VISIT Patient is here today for follow-up and to discuss colonoscopy results. Patient denies any ill effects from the prep, anesthesia or procedure itself. Patient had 1 polyp, tubular adenoma without high-grade dysplasia or carcinoma. Patient was found to have colitis in sigmoid and rectum. Diagnosed with inflammatory bowel disease. Patient was started on mesalamine after the procedure. States that he has been taking it for almost 2 months and has been feeling much better. Patient reports that his bowels normalized. He stopped taking NSAIDs. Patient denies melena, hematochezia, unintentional weight loss or ribbon like stools. Patient denies dyspepsia, dysphagia or odynophagia patient denies any other GI concerning symptoms [facility] Medical History (Updated 10/17/22 @ 09:53 by Lilian Lee, [facility]) History of depression Hypertension, essential Osteoarthritis of right knee Pre-diabetes Tubular adenoma Surgical History History of lumbar discectomy History of surgery on extremity History of total right knee replacement Hx of arthroscopy of left knee Hx of colonoscopy Hx of elbow surgery Hx of hernia repair Hx of repair of rotator cuff Social History Household Members: Spouse Housing: House Are you a primary career and transition teacher to a significant other at home: No Do you presently have visiting nurse or other home services: No Alcohol intake: current Alcohol intake frequency: holidays/special occasions only Patient Tobacco Use Status: Never used Tobacco e-Cigarette/Vaping Use: Never Used Second Hand Smoke Exposure: No service: No Current occupational status: retired Current occupation: Left handed Cognitive needs: No Hearing needs: No Vision needs: No Review of Systems Const Denies weight gain and Denies weight loss ENT Reports no additional complaints, Denies dysphagia and Denies odynophagia Card Reports no additional complaints Resp Reports no additional complaints GI Denies abdominal pain, Denies belching, Denies melena, Denies bloating, Denies change in bowel habits, Denies dysphagia, Denies excessive flatus, Denies dyspepsia, Denies heartburn, Denies diarrhea, Denies loose stools, Denies nausea, Denies odynophagia and Denies vomiting Reports no additional complaints Musc Reports no additional complaints Neuro Reports no additional complaints Psych Reports no additional complaints Endo Reports no additional complaints Physical Exam Vital Signs: Last Vital Signs Pulse 69 10/17/22 08:12 BP 122/69 10/17/22 08:12 BMI result Body Mass Index 30.4 Const General: healthy appearing, no acute distress and well developed Nutritional Appearance: obese Orientation/consciousness: patient oriented x3 HEENT Head: Yes normal to inspection, Yes normocephalic and Yes atraumatic Face and sinus: Yes normal facial exam Mouth: Normal oral and palatal mucosa present Throat: Yes posterior oropharynx normal, Yes tonsils normal and Yes uvula midline Eyes General: appearance normal, both eyes and all related structures Neck Neck: Yes normal visual inspection, Yes full ROM and Yes trachea midline Thyroid: Thyroid normal Resp Effort & Inspection: normal respiratory effort, able to speak in complete sentences, no tracheal deviation and symmetric chest movement Auscultation: clear to auscultation bilaterally Cardio Rate: regular rate Heart sounds: S1 normal heart sound present and S2 normal heart sound present GI Inspection: Yes normal to inspection, No distended and Yes obesity Palpation (GI): Soft to palpation, not firm, nontender and No hepatosplenomegaly present Auscultation: normal bowel sounds General: Yes no CVA tenderness Back/Spine/Pelvis Back: no CVA tenderness Skin General skin exam: elasticity normal, turgor normal and dry skin Neuro General: patient oriented x3 Psych Appearance: grossly normal Mental Status: mental status grossly normal Speech and movement: Normal speech and movement present Affect: normal affect Assessment & Plan Assessment & Plan (1) IBD (inflammatory bowel disease): Code(s): K52.9 - Noninfective gastroenteritis and colitis, unspecified Plan: Continue mesalamine as ordered. Patient is tolerating well. Will check kidney and liver functions in 6 months. 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 Continue mesalamine. Patient was encouraged to avoid NSAIDs (3) Tubular adenoma: Code(s): D36.9 - Benign neoplasm, unspecified site Plan: 1 tubular adenoma found without high-grade dysplasia or carcinoma. Patient will return for colorectal screening in 1-2 years (4) Status post colonoscopy: Code(s): Z98.890 - Other specified postprocedural states Plan: Patient denies any ill effects from the prep, anesthesia or procedure itself. Will return for colorectal screening in 1-2 years. 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 I will see patient in 6 months, sooner on as needed basis. Patient is agreeable to this plan and verbalizes understanding of instructions. He was given the opportunity to ask questions and all questions answered. Thank you for allowing me to participate in his care Coding Level of Care Code Est Pt Level 4 (06258) Diagnoses IBD (inflammatory bowel disease) K52.9 Colitis K52.9 Tubular adenoma D36.9 Status post colonoscopy Z98.890 Time Spent (min) 40 Comment 25 minutes spent with patient and additional 15 minutes spent reviewing his records
[2022-10-17 08:12] VITALS: BP 122/69; PULSE 69; BMI 30.4
== END 2022-10-17 08:43 | disposition home or self-care (01) ==
PROVIDERS: PCP Internal Medicine; Visit Provider Nurse Practitioner Family
DX: K52.9 Noninfective gastroenteritis and colitis, unspecified (principal); D36.9 Benign neoplasm, unspecified site; Z98.890 Other specified postprocedural states
CPT/HCPCS: 99214

== ENCOUNTER → 2022-10-17 08:03 | Outpatient (BNVA) | payer MEDICARE, SELFPAY | PROVIDERS: PCP Internal Medicine; Visit Provider Nurse Practitioner Family | DX: D12.2 Benign neoplasm of ascending colon (principal); K52.9 Noninfective gastroenteritis and colitis, unspecified; Z98.890 Other specified postprocedural states | CPT/HCPCS: 99212 ==

== ENCOUNTER 2022-10-18 14:14 | Outpatient (AMB) | payer MEDICARE, SELFPAY ==
[2022-10-18 14:18] VITALS: BP 122/62; PULSE 79; O2SAT 96; BMI 30.4
--- NOTE | 2022-10-18 14:18 | MHC.PC.OV ---
Vital Signs 10/18/22 14:18 Height 5 ft 6 in Weight 188 lb 2 oz BMI 30.4 BP 122/62 Blood Pressure Location Rt brachial Position Sitting Pulse 79 Pulse Source Pulse Oximeter Pulse Oximetry (%) 96 Oxygen Delivery Method Room Air Intake Visit Reasons: PE Allergies hydromorphone [From Dilaudid] Adverse Reaction (Severe, Verified 10/18/22 14:19) Agitated peanuts Allergy (Severe, Uncoded 10/17/22 08:11) anaphylaxis Medication List - Last Reconciled 10/18/22 by Trena Fitzgerald MD amlodipine 5 mg PO DAILY 90 days hydrochlorothiazide 25 mg PO QAM 90 days hydrocortisone 2.5% (Proctosol HC) 1 appl NH BID-QID PRN lisinopril 40 mg PO DAILY 90 days mesalamine ER (Apriso) 1.5 grams (4 x 0.375 gram) PO DAILY mesalamine with cleansing wipe 4 gram/60 mL (Rowasa rectal suspension enema) 4 grams (60 mL) NH BEDTIME Tobacco use date assessed: 10/18/22 Fall risk assessment: No Falls in past year Last assessed Fall Risk: 10/18/22 Dental Screening Dental Screen Date: 10/18/22 Did you have a dental visit in the last 12 months?: No Did you have a dental problem in the last 6 months where you did not have access to dental care?: No Was dental information given to patient?: No HPI PE HPI Details Patient is 72-year-old gentleman came in for physical exam Patient was recently diagnosed with inflammatory bowel disease and was started on mesalamine when he was evaluated with colonoscopy as part of workup for diarrhea Diarrhea has improved but patient is upset that he has to take this medication chronically. His blood pressure is stable he is taking 3 blood pressure medications and is tolerating them. BMI is elevated but he is gradually losing weight as he is swimming. Follow-up 4 months physical exam 1 year Labs done recently reviewed with the patient his hemoglobin A1c is 5.5, he is taking no medication for diabetes [facility] Medical History History of depression Hypertension, essential Osteoarthritis of right knee Pre-diabetes Tubular adenoma Surgical History History of lumbar discectomy History of surgery on extremity History of total right knee replacement Hx of arthroscopy of left knee Hx of colonoscopy Hx of elbow surgery Hx of hernia repair Hx of repair of rotator cuff Social History Household Members: Spouse Housing: House Are you a primary healthcare financial analyst to a significant other at home: No Do you presently have visiting nurse or other home services: No Alcohol intake: current Alcohol intake frequency: holidays/special occasions only Patient Tobacco Use Status: Never used Tobacco e-Cigarette/Vaping Use: Never Used Second Hand Smoke Exposure: No service: No Current occupational status: retired Current occupation: Left handed Cognitive needs: No Hearing needs: No Vision needs: No Questionnaire Thrive Questionnaire Date Thrive assessed: 07/06/22 AUDIT C Alcohol Use Questionnaire (AUDIT-C) 1. How often do you have a drink containing alcohol?: Never 3. How often do you have six or more drinks on one occasion?: Never Total Score: 0 Score Reviewed/Action Taken: Yes MANJINDER-7 AMB Questionnaire MANJINDER-7 Date MANJINDER - 7 assessed: 07/06/22 Source: Developed by Drs. Kiel Gomez, Danuta Beard, Ronald Sagastume and colleagues, with an educational felipe from [employer]. Review of Systems Const Denies chills, Denies fever(s) and Denies headache(s) Eyes Denies blurry vision ENT Denies headache(s), Denies nasal discharge, Denies nasal obstruction, Denies odynophagia and Denies sinus pain Card Denies chest pain at rest and Denies chest pain with activity Resp Denies cough and Denies hemoptysis GI Denies odynophagia, Denies vomiting and Denies hematemesis Reports as per HPI Musc Denies abnormal gait Skin/Breast Reports as per HPI Neuro Denies Neuro-related abnormal movements, Denies Abnormal speech present, Denies abnormal gait, Denies headache(s) and Denies Sensory deficit (Neuro) Psych Denies mood swings and Denies paranoia Endo Reports as per HPI Héctor/Lymph Reports as per HPI Aller/Immun Reports as per HPI Physical exam (Primary Care) Vital Signs: Last Vital Signs Pulse 79 10/18/22 14:18 BP 122/62 10/18/22 14:18 Pulse Ox 96 10/18/22 14:18 Oxygen Delivery Method Room Air 10/18/22 14:18 BMI result Body Mass Index 30.4 Tobacco/Smoking Status: Tobacco use Status Tobacco use date assessed 10/18/22 10/18/22 14:19 Patient Tobacco Use Status Never used Tobacco 10/18/22 14:19 e-Cigarette/Vaping Use Never Used 10/18/22 14:19 Thrive Assessment: Date of Thrive Assessment Date Thrive assessed 07/06/22 10/18/22 14:19 Const General: cooperative, comfortable and no acute distress Orientation/consciousness: patient oriented x3 HENMT Head: Yes normocephalic and Yes atraumatic Eyes General: appearance normal, both eyes and all related structures Pupils: Equal, round and reactive pupils present EOM: EOMs intact bilaterally Neck Neck: Yes supple and No lymphadenopathy Thyroid: Thyroid normal Lymphatic: no lymphadenopathy noted Resp Effort & Inspection: normal respiratory effort and able to speak in complete sentences Auscultation: clear to auscultation bilaterally Cardio Heart sounds: S1 normal heart sound present and S2 normal heart sound present GI Palpation (GI): Soft to palpation and nontender Auscultation: normal bowel sounds General: Yes no CVA tenderness Back/Spine/Pelvis Back: no CVA tenderness Skin General skin exam: elasticity normal and turgor normal Neuro General: patient oriented x3 and gait normal Cranial nerves: Yes Equal, round and reactive pupils present Speech: No Abnormal speech present Sensory Exam: No Sensory deficit (Neuro) Coordination: tandem gait normal and Romberg test negative Extrem General: Yes normal exam except as noted and No edema Assessment and Plan Assessment & Plan (1) Encounter for general adult medical examination with abnormal findings: Code(s): Z00.01 - Encounter for general adult medical examination with abnormal findings (2) Hypertension, essential: Code(s): I10 - Essential (primary) hypertension (3) Inflammatory bowel disease: Code(s): K52.9 - Noninfective gastroenteritis and colitis, unspecified Plan Patient is 72-year-old gentleman came in for physical exam Patient was recently diagnosed with inflammatory bowel disease and was started on mesalamine when he was evaluated with colonoscopy as part of workup for diarrhea Diarrhea has improved but patient is upset that he has to take this medication chronically. His blood pressure is stable he is taking 3 blood pressure medications and is tolerating them. BMI is elevated but he is gradually losing weight as he is swimming. Follow-up 4 months physical exam 1 year Labs done recently reviewed with the patient his hemoglobin A1c is 5.5, he is taking no medication for diabetes Medications: Refilled amlodipine 5 mg PO DAILY 90 days 90 tabs 1RF lisinopril 40 mg PO DAILY 90 days 90 tabs 1RF hydrochlorothiazide 25 mg PO QAM 90 days 90 tabs 1RF I10 - Essential (primary) hypertension Coding Level of Care Code Est Pt Prev Care >65y(07966) Diagnoses Encounter for general adult medical examination with abnormal findings Z00.01 Hypertension, essential I10 Inflammatory bowel disease K52.9
== END 2022-10-18 15:00 | disposition home or self-care (01) ==
PROVIDERS: Visit Provider Internal Medicine
DX: Z00.01 Encounter for general adult medical examination with abnormal findings (principal); I10 Essential (primary) hypertension; K52.9 Noninfective gastroenteritis and colitis, unspecified
CPT/HCPCS: 99397

== ENCOUNTER 2023-01-30 10:58 | Outpatient (REF) | payer MEDICARE, SELFPAY ==
[2023-01-30 13:36] LABS: Alanine Aminotransferase 20 U/L (0-40); Alkaline Phosphatase 65 U/L (39-117); Anion Gap 17 (12-20); Aspartate Amino Transferase 21 U/L (5-37); Bilirubin Total 0.4 mg/dL (0.0-1.0); Blood Urea Nitrogen 19 mg/dL (9-16); Calcium 10.1 mg/dL (8.4-10.2); Carbon Dioxide 23 mmol/L (22-29); Chloride 103 mmol/L (96-108); Estimated Glomerular Filt Rate > 60; Glucose Random 97 mg/dL (60-115); Potassium 3.9 mmol/L (3.3-5.1); Sodium 139 mmol/L (135-145)
== END 2023-01-30 10:59 | disposition home or self-care (01) ==
LOC: HO.HMGCLDS 10:58
PROVIDERS: PCP Internal Medicine; Visit Provider Internal Medicine
DX: I10 Essential (primary) hypertension (principal)
CPT/HCPCS: 36415; 80053

== ENCOUNTER 2023-02-14 09:33 | Outpatient (AMB) | payer MEDICARE, SELFPAY ==
--- NOTE | 2023-02-14 09:42 | A.OFFPC_ITS ---
Vital Signs 02/14/23 09:43 Height 5 ft 6 in Weight 192 lb BMI 31.0 BP 110/62 Blood Pressure Location Rt brachial Position Sitting Pulse 76 Pulse Source Pulse Oximeter Pulse Oximetry (%) 97 Oxygen Delivery Method Room Air Intake Visit Reasons: 4 Month follow up Guitar Repairer Required: No Accompanied by: Self / Same As Patient Allergies hydromorphone [From Dilaudid] Adverse Reaction (Severe, Verified 02/14/23 09:43) Agitated peanuts Allergy (Severe, Uncoded 10/17/22 08:11) anaphylaxis Tobacco use date assessed: 02/14/23 Fall risk assessment: No Falls in past year Last assessed Fall Risk: 02/14/23 Dental Screening Dental Screen Date: 02/14/23 Did you have a dental visit in the last 12 months?: Yes Did you have a dental problem in the last 6 months where you did not have access to dental care?: No Was dental information given to patient?: Patient has dentist HPI 4 Month follow up HPI Details Taking 3 medications for blood pressure Blood pressure is stable patient is tolerating medication Labs done in January reviewed with the patient liver function kidney functions are intact Pre diabetes: Diet controlled Patient has started swimming and he is feeling better. He tells me that this is the best he has ever felt. He has appointment with me in June Patient has gastroenterology appointment in April he is on mesalamine or inflammatory bowel disease. And is doing well. BMI is elevated 31.0 he is trying to lose weight. [facility] Medical History Tubular adenoma History of depression Osteoarthritis of right knee Pre-diabetes Hypertension, essential Surgical History History of total right knee replacement History of surgery on extremity Hx of elbow surgery Hx of hernia repair Hx of colonoscopy History of lumbar discectomy Hx of repair of rotator cuff Hx of arthroscopy of left knee Social History Household Members: Spouse Housing: House Are you a primary critical care transport nurse to a significant other at home: No Do you presently have visiting nurse or other home services: No Alcohol intake: current Alcohol intake frequency: holidays/special occasions only Patient Tobacco Use Status: Never used Tobacco e-Cigarette/Vaping Use: Never Used Second Hand Smoke Exposure: No service: No Current occupational status: retired Current occupation: Left handed Cognitive needs: No Hearing needs: No Vision needs: No Questionnaire Thrive Questionnaire Date Thrive assessed: 07/06/22 MANJINDER-7 AMB Questionnaire MANJINDER-7 Date MANJINDER - 7 assessed: 07/06/22 Source: Developed by Drs. Kiel Gomez, Danuta Beard, Ronald Sagastume and colleagues, with an educational felipe from [employer]. Review of Systems Const Denies chills and Denies fever(s) ENT Denies epistaxis and Denies nasal discharge Card Denies chest pain Resp Denies chest congestion, Denies cough and Denies hemoptysis GI Denies diarrhea and Denies nausea Skin/Breast Denies rash Neuro Reports no additional complaints Psych Reports no additional complaints Endo Reports no additional complaints Physical exam (Primary Care) Vital Signs: Last Vital Signs Pulse 76 02/14/23 09:43 BP 110/62 02/14/23 09:43 Pulse Ox 97 02/14/23 09:43 Oxygen Delivery Method Room Air 02/14/23 09:43 BMI result Body Mass Index 31.0 Tobacco/Smoking Status: Tobacco use Status Tobacco use date assessed 02/14/23 02/14/23 09:44 Patient Tobacco Use Status Never used Tobacco 02/14/23 09:44 e-Cigarette/Vaping Use Never Used 02/14/23 09:44 Thrive Assessment: Date of Thrive Assessment Date Thrive assessed 07/06/22 02/14/23 09:44 Const General: cooperative, comfortable and no acute distress Orientation/consciousness: patient oriented x3 HENMT Head: Yes normocephalic Eyes General: appearance normal, both eyes and all related structures Neck Neck: Yes supple Resp Effort & Inspection: normal respiratory effort, no cough and no stridor Cardio Rhythm: regular rhythm Heart sounds: S1 normal heart sound present and S2 normal heart sound present Skin General skin exam: turgor normal Neuro General: patient oriented x3, tone normal and moves all extremities Extrem Right lower extremity: no edema Left lower extremity: no edema Assessment and Plan Assessment & Plan (1) Hypertension, essential: Code(s): I10 - Essential (primary) hypertension (2) Inflammatory bowel disease: Code(s): K52.9 - Noninfective gastroenteritis and colitis, unspecified (3) Obesity due to excess calories: Code(s): E66.09 - Other obesity due to excess calories Qualifiers: Body mass index: BMI 31.0-31.9 Obesity classification: adult class 1 (BMI 30 - 34.9) Serious obesity comorbidity presence: with serious comorbidity Qualified Code(s): E66.09 - Other obesity due to excess calories; Z68.31 - Body mass index [BMI] 31.0-31.9, adult (4) Pre-diabetes: Code(s): R73.03 - Prediabetes Plan Taking 3 medications for blood pressure Blood pressure is stable patient is tolerating medication Labs done in January reviewed with the patient liver function kidney functions are intact Pre diabetes: Diet controlled Patient has started swimming and he is feeling better. He tells me that this is the best he has ever felt. He has appointment with me in June Patient has gastroenterology appointment in April he is on mesalamine or inflammatory bowel disease. And is doing well. BMI is elevated 31.0 he is trying to lose weight. Coding Level of Care Code Est Pt Level 3 (82478) Diagnoses Hypertension, essential I10 Inflammatory bowel disease K52.9 Class 1 obesity due to excess calories with serious comorbidity and body mass index (BMI) of 31.0 to 31.9 in adult E66.09; Z68.31 Body mass index: BMI 31.0-31.9 Obesity classification: adult class 1 (BMI 30 - 34.9) Serious obesity comorbidity presence: with serious comorbidity Pre-diabetes R73.03
[2023-02-14 09:43] VITALS: BP 110/62; PULSE 76; O2SAT 97; BMI 31.0
== END 2023-02-14 10:57 | disposition home or self-care (01) ==
PROVIDERS: PCP Internal Medicine; Visit Provider Internal Medicine
DX: I10 Essential (primary) hypertension (principal); K52.9 Noninfective gastroenteritis and colitis, unspecified; E66.09 Other obesity due to excess calories; Z68.31 Body mass index [BMI] 31.0-31.9, adult; R73.03 Prediabetes
CPT/HCPCS: 99213

== ENCOUNTER 2023-04-19 07:43 | Outpatient (AMB) | payer MEDICARE, SELFPAY ==
--- NOTE | 2023-04-19 07:46 | MHC.OFFVIS ---
Intake Vital Signs 04/19/23 07:54 Height 5 ft 6 in Weight 191 lb 12.835 oz BMI 31.0 BP 141/73 H Blood Pressure Location Rt brachial Position Sitting Pulse 75 Intake Visit Reasons: 6 month follow up Intake Note: Pradeep presents in the office as a 6 month follow up. CC: He states that he is not having any concerns - he states that everything is the same and some days are better than others. Allergies hydromorphone [From Dilaudid] Adverse Reaction (Severe, Verified 04/19/23 07:54) Agitated peanuts Allergy (Severe, Uncoded 04/19/23 07:54) anaphylaxis HPI 6 month follow up HPI Details LAST VISIT IBD (inflammatory bowel disease) Continue mesalamine as ordered. Patient is tolerating well. Will check kidney and liver functions in 6 months. 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 Continue mesalamine. Patient was encouraged to avoid NSAIDs Tubular adenoma 1 tubular adenoma found without high-grade dysplasia or carcinoma. Patient will return for colorectal screening in 1-2 years Status post colonoscopy Patient denies any ill effects from the prep, anesthesia or procedure itself. Will return for colorectal screening in 1-2 years. 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 I will see patient in 6 months, sooner on as needed basis. Patient is agreeable to this plan and verbalizes understanding of instructions. He was given the opportunity to ask questions and all questions answered. ? PFSH Medical History Tubular adenoma History of depression Osteoarthritis of right knee Pre-diabetes Hypertension, essential Surgical History History of total right knee replacement History of surgery on extremity Hx of elbow surgery Hx of hernia repair Hx of colonoscopy History of lumbar discectomy Hx of repair of rotator cuff Hx of arthroscopy of left knee Social History Household Members: Spouse Housing: House Are you a primary family day care worker to a significant other at home: No Do you presently have visiting nurse or other home services: No Alcohol intake: current Alcohol intake frequency: holidays/special occasions only Comment: previously medicated with iv dilaudid Patient Tobacco Use Status: Never used Tobacco e-Cigarette/Vaping Use: Never Used Second Hand Smoke Exposure: No service: No Current occupational status: retired Current occupation: Left handed Cognitive needs: No Hearing needs: No Vision needs: No Review of Systems Const Denies weight gain and Denies weight loss ENT Reports no additional complaints, Denies dysphagia and Denies odynophagia Card Reports no additional complaints Resp Reports no additional complaints GI Denies abdominal pain, Denies belching, Denies melena, Denies bloating, Reports hematochezia (Occasional), Denies change in bowel habits, Denies dysphagia, Denies excessive flatus, Denies dyspepsia, Denies heartburn, Denies diarrhea, Denies loose stools, Denies nausea, Denies odynophagia and Denies vomiting Reports no additional complaints Musc Reports no additional complaints Neuro Reports no additional complaints Psych Reports no additional complaints Endo Reports no additional complaints Physical Exam Vital Signs: Last Vital Signs Pulse 75 04/19/23 07:54 BP 141/73 H 04/19/23 07:54 BMI result Body Mass Index 31.0 Const General: healthy appearing, no acute distress and well developed Nutritional Appearance: well nourished Orientation/consciousness: patient oriented x3 Resp Effort & Inspection: normal respiratory effort, able to speak in complete sentences, no tracheal deviation and symmetric chest movement Auscultation: clear to auscultation bilaterally Cardio Rate: regular rate GI Inspection: Yes normal to inspection and No distended Palpation (GI): Soft to palpation, not firm, nontender and No hepatosplenomegaly present Auscultation: normal bowel sounds General: Yes no CVA tenderness Back/Spine/Pelvis Back: no CVA tenderness Skin General skin exam: elasticity normal, turgor normal and dry skin Neuro General: patient oriented x3 Psych Appearance: grossly normal Mental Status: mental status grossly normal Assessment & Plan Assessment & Plan (1) Inflammatory bowel disease: Code(s): K52.9 - Noninfective gastroenteritis and colitis, unspecified (2) Colitis: Code(s): K52.9 - Noninfective gastroenteritis and colitis, unspecified Plan Continue avoiding dietary triggers. Patient was encouraged try not to swim in chlorinated pool. Patient since 2 to 3 times a week in high chlorine pull at the [facility]. Patient was encouraged to try different exercises. Continue mesalamine. Patient will try Colace. Patient will be due to go for colorectal screening after August. What to expect before during and after the procedure discussed with patient. Clear liquid diet day before procedure as well as good bowel prep discussed with patient. I will see patient after the procedure, sooner on as needed basis. Patient is agreeable to this plan and verbalizes understanding of instructions. He was given the opportunity to ask questions and all questions answered. Thank you for allowing me to participate in his care Medications: New docusate sodium 100 mg PO BEDTIME 90 caps 3RF K59.00 - Constipation, unspecified bisacodyl (Dulcolax (bisacodyl)) take 4 tabs at noon the day before your colonoscopy 20 mg (4 x 5 mg) PO ONCE 1 day 4 tabs 0RF Z12.11 - Encounter for screening for malignant neoplasm of colon polyethylene glycol 3350 (Miralax) As directed by gastroenterology department at [facility] 238 grams PO ONCE 238 grams 0RF Z12.11 - Encounter for screening for malignant neoplasm of colon Coding Level of Care Code Est Pt Level 3 (81913) Diagnoses Inflammatory bowel disease K52.9 Colitis K52.9 Time Spent (min) 30 Comment 20 minutes spent with patient and additional 10 minutes spent reviewing his records
[2023-04-19 07:54] VITALS: BP 141/73; PULSE 75; BMI 31.0
== END 2023-04-19 09:00 | disposition home or self-care (01) ==
PROVIDERS: PCP Internal Medicine; Visit Provider Nurse Practitioner Family
DX: K52.9 Noninfective gastroenteritis and colitis, unspecified (principal)
CPT/HCPCS: 99213

== ENCOUNTER → 2023-04-19 07:43 | Outpatient (BNVA) | payer MEDICARE, SELFPAY | PROVIDERS: PCP Internal Medicine; Visit Provider Nurse Practitioner Family | DX: K52.9 Noninfective gastroenteritis and colitis, unspecified (principal) | CPT/HCPCS: 99212 ==

== ENCOUNTER 2023-06-12 07:15 | Outpatient (REF) | payer MEDICARE, SELFPAY ==
[2023-06-12 11:21] LABS: MANUAL DIFF FLAG NO
[2023-06-12 11:46] LABS: Basophils Absolute Auto 0.1 X10*3/uL (0.0-0.2); Basophils Percent Auto 0.6 % (0-2); Eosinophils Absolute Auto 0.6 X10*3/uL (0.0-0.4); Eosinophils Percent Auto 6.8 % (0-4); Hemoglobin 13.3 g/dl (14.0-18.0); Imm Gran Abs Auto 0.03 X10*3/uL (0.00-0.03); Imm Gran Pct Auto 0.4 % (0.0-0.4); Lymphocytes Absolute Auto 2.3 X10*3/uL (1.2-4.9); Lymphocytes Percent Auto 26.6 % (20-40); Mean Corpuscular HGB Conc 33.3 g/dl (31.0-36.0); Mean Corpuscular Volume 96.2 fL (80.0-98.0); Mean Platelet Volume 10.1 fL (9.4-12.4); Monocytes Absolute Auto 0.9 X10*3/uL (0.1-1.2); Monocytes Percent Auto 10.8 % (2-11); Neutrophils Absolute Auto 4.7 x10*3/uL (2.0-8.3); Neutrophils Percent Auto 54.8 % (45-73); Platelet Count 436 X10*3/uL (160-400); Red Blood Count 4.16 X10*6/uL (4.60-5.80); Red Cell Distribution Width 13.4 % (11.0-16.0); White Blood Count 8.5 X10*3/uL (4.8-10.8)
[2023-06-12 12:11] LABS: Estimated Average Glucose 108 mg/dL; Hemoglobin A1c % 5.4 % (<6.0)
[2023-06-12 12:20] LABS: Alanine Aminotransferase 16 U/L (0-40); Albumin Level 3.9 g/dL (3.5-5.0); Alkaline Phosphatase 72 U/L (39-117); Anion Gap 13 (12-20); Aspartate Amino Transferase 17 U/L (5-37); Bilirubin Total 0.4 mg/dL (0.0-1.0); Blood Urea Nitrogen 20 mg/dL (9-16); Calcium 9.4 mg/dL (8.4-10.2); Carbon Dioxide 26 mmol/L (22-29); Chloride 106 mmol/L (96-108); Cholesterol 176 mg/dL (<200); Estimated Glomerular Filt Rate > 60; Glucose Fasting 107 mg/dL (60-99); HDL Cholesterol 41 mg/dL (>40); LDL Cholesterol Calculated 113 mg/dL (<100); Potassium 3.4 mmol/L (3.3-5.1); Sodium 142 mmol/L (135-145); Total Protein 7.6 g/dL (6.5-8.0); Triglycerides 110 mg/dL (<150)
== END 2023-06-12 07:16 | disposition home or self-care (01) ==
LOC: HO.HMGCLDS 07:15
PROVIDERS: PCP Internal Medicine; Visit Provider Internal Medicine
DX: I10 Essential (primary) hypertension (principal); E66.09 Other obesity due to excess calories; R73.03 Prediabetes; K52.9 Noninfective gastroenteritis and colitis, unspecified; Z68.31 Body mass index [BMI] 31.0-31.9, adult
CPT/HCPCS: 36415; 80053; 80061; 83036; 85025

== ENCOUNTER 2023-06-20 08:31 | Outpatient (AMB) | payer MEDICARE, SELFPAY ==
[2023-06-20 08:37] VITALS: BP 126/68; PULSE 108; O2SAT 100; BMI 30.2
--- NOTE | 2023-06-20 08:37 | A.OFFPC_ITS ---
Vital Signs 06/20/23 08:37 Height 5 ft 6 in Weight 187 lb 2 oz BMI 30.2 BP 126/68 Blood Pressure Location Rt brachial Position Sitting Pulse 108 H Pulse Source Pulse Oximeter Pulse Oximetry (%) 100 Oxygen Delivery Method Room Air Intake Visit Reasons: 8 Month follow up Allergies hydromorphone [From Dilaudid] Adverse Reaction (Severe, Verified 06/20/23 08:38) Agitated peanuts Allergy (Severe, Uncoded 04/19/23 07:54) anaphylaxis Medication List - Last Reconciled 06/20/23 by Trena Fitzgerald MD amlodipine 5 mg PO DAILY 90 days bisacodyl (Dulcolax (bisacodyl)) 20 mg (4 x 5 mg) PO ONCE 1 day docusate sodium 100 mg PO BEDTIME hydrochlorothiazide 25 mg PO QAM 90 days hydrocortisone 2.5% (Proctosol HC) 1 appl NM BID-QID PRN lisinopril 40 mg PO DAILY 90 days mesalamine ER (Apriso) 1.5 grams (4 x 0.375 gram) PO DAILY methylcellulose (laxative) (Citrucel) 500 mg PO DAILY polyethylene glycol 3350 (Miralax) 238 grams PO ONCE Tobacco use date assessed: 06/20/23 Fall risk assessment: No Falls in past year Last assessed Fall Risk: 06/20/23 Dental Screening Dental Screen Date: 06/20/23 Did you have a dental visit in the last 12 months?: Yes Did you have a dental problem in the last 6 months where you did not have access to dental care?: No Was dental information given to patient?: Patient has dentist HPI 8 Month follow up HPI Details Patient is 73-year-old gentleman came in today for his regular follow- up appointment Labs done recently reviewed Fasting sugar is 107 Patient is trying to lose and was able to lose few lb Taking 3 medications for blood pressure Blood pressure is stable patient is tolerating medication Patient has started swimming and he is feeling better. He tells me that gastroenterology is concerned that Chlorine is causing his anal symptoms We talked about the barrier swim suits that he can explore.. Patient has inflammatory bowel disease and is currently taking mesalamine He also suffers IBS tells me some days better than others Patient has appointment for follow-up end of October. [facility] Medical History Tubular adenoma History of depression Osteoarthritis of right knee Pre-diabetes Hypertension, essential Surgical History History of total right knee replacement History of surgery on extremity Hx of elbow surgery Hx of hernia repair Hx of colonoscopy History of lumbar discectomy Hx of repair of rotator cuff Hx of arthroscopy of left knee Social History Household Members: Spouse Housing: House Are you a primary critical care paramedic to a significant other at home: No Do you presently have visiting nurse or other home services: No Alcohol intake: current Alcohol intake frequency: holidays/special occasions only Comment: previously medicated with iv dilaudid Patient Tobacco Use Status: Never used Tobacco e-Cigarette/Vaping Use: Never Used Second Hand Smoke Exposure: No service: No Current occupational status: retired Current occupation: Left handed Cognitive needs: No Hearing needs: No Vision needs: No Questionnaire PHQ-9 Over the last 2 weeks, how often have you been bothered by any of the following problems? 1. Little interest or pleasure in doing things: not at all 2. Feeling down, depressed, or hopeless: not at all 3. Trouble falling or staying asleep, or sleeping too much: not at all 4. Feeling tired or having little energy: not at all 5. Poor appetite or overeating: not at all 6. Feeling bad about yourself - or that you are a failure or have let yourself or your family down: not at all 7. Trouble concentrating on things, such as reading the newspaper or watching television: not at all 8. Moving or speaking so slowly that other people could have noticed. Or the opposite - being so fidgety or restless that you have been moving around a lot more than usual: not at all 9. Thoughts that you would be better off or of hurting yourself in some way: not at all Total score: 0 Depression Screening Interpretation: Negative Depression Screening Done: Yes 89182 - PHQ-9 Billing: Yes Source: Developed by Drs. Kiel Gomez, Danuta Beard, Ronald Sagastume and colleagues, with an educational felipe from [employer]. Thrive Questionnaire Date Thrive assessed: 06/20/23 I am a: Patient What is your living situation today?: I have a steady place to live Within the past 12 months, did the food you bought not last and you didn't have the money to get more?: Never true Within the past 12 months, did you worry whether your food would run out before you got money to buy more?: Never true Do you have trouble paying for medicines?: No Do you have trouble getting transportation to medical appointments?: No Do you have trouble paying your heating and electricity bill?: No Do you have trouble taking care of your child, family member or friend?: No Do you have trouble with day-to-day activities such as bathing, preparing meals, shopping, managing finances, etc.?: No Are you currently unemployed and looking for a job?: No Are you interested in more education?: No Please select the resources that you would like help with: None Currently or been in a relationship where the following occur: no concerns reported THRIVE Score: 0 MANJINDER-7 AMB Questionnaire MANJINDER-7 Date MANJINDER - 7 assessed: 06/20/23 Feeling nervous, anxious, or on edge: 1 = Several days Not being able to stop or control worryin = Several days Worrying too much about different things: 1 = Several days Trouble relaxin = Not at all Being so restless that it is hard to sit still: 0 = Not at all Becoming easily annoyed or irritable: 1 = Several days Feeling afraid as if something awful might happen: 1 = Several days Total MANJINDER-7 score (0-4 normal; 5-9 mild; 10-14 moderate; 15-21 severe): 5 Source: Developed by Drs. Kiel Gomez, Danuta Beard, Ronald Sagastume and colleagues, with an educational felipe from [employer]. MANJINDER-7 Assessment Billing MANJINDER-7 Assessment Tool: MANJINDER-7 Assessment 80659 Review of Systems Const Denies chills and Denies fever(s) ENT Denies epistaxis and Denies nasal discharge Card Denies chest pain Resp Denies chest congestion, Denies cough and Denies hemoptysis GI Denies nausea Skin/Breast Denies rash Neuro Reports no additional complaints Psych Reports no additional complaints Endo Reports no additional complaints Physical exam (Primary Care) Vital Signs: Last Vital Signs Pulse 108 H 06/20/23 08:37 BP 126/68 06/20/23 08:37 Pulse Ox 100 06/20/23 08:37 Oxygen Delivery Method Room Air 06/20/23 08:37 BMI result Body Mass Index 30.2 Tobacco/Smoking Status: Tobacco use Status Tobacco use date assessed 06/20/23 06/20/23 08:40 Patient Tobacco Use Status Never used Tobacco 06/20/23 08:40 e-Cigarette/Vaping Use Never Used 06/20/23 08:40 PHQ-9: PHQ-9 Score PHQ-9: Total score 0 06/20/23 09:07 Depression Screening Interpretation: Negative Thrive Assessment: Date of Thrive Assessment Date Thrive assessed 06/20/23 06/20/23 09:07 Currently or been in a relationship where the following occur: no concerns reported Const General: cooperative, comfortable and no acute distress Orientation/consciousness: patient oriented x3 HENMT Head: Yes normocephalic Eyes General: appearance normal, both eyes and all related structures Neck Neck: Yes supple Resp Effort & Inspection: normal respiratory effort, no cough and no stridor Cardio Rhythm: regular rhythm Heart sounds: S1 normal heart sound present and S2 normal heart sound present Skin General skin exam: turgor normal Neuro General: patient oriented x3, tone normal and moves all extremities Extrem Right lower extremity: no edema Left lower extremity: no edema Assessment and Plan Assessment & Plan (1) Hypertension, essential: Code(s): I10 - Essential (primary) hypertension (2) Inflammatory bowel disease: Code(s): K52.9 - Noninfective gastroenteritis and colitis, unspecified (3) Obesity due to excess calories: Code(s): E66.09 - Other obesity due to excess calories Qualifiers: Body mass index: BMI 31.0-31.9 Obesity classification: adult class 1 (BMI 30 - 34.9) Serious obesity comorbidity presence: with serious comorbidity Qualified Code(s): E66.09 - Other obesity due to excess calories; Z68.31 - Body mass index [BMI] 31.0-31.9, adult (4) Pre-diabetes: Code(s): R73.03 - Prediabetes Plan Patient is 73-year-old gentleman came in today for his regular follow-up appointment Labs done recently reviewed Fasting sugar is 107 Patient is trying to lose and was able to lose few lb Taking 3 medications for blood pressure Blood pressure is stable patient is tolerating medication Patient has started swimming and he is feeling better. He tells me that gastroenterology is concerned that Chlorine is causing his anal symptoms We talked about the barrier swim suits that he can explore.. Patient has inflammatory bowel disease and is currently taking mesalamine He also suffers IBS tells me some days better than others Patient has appointment for follow-up end of October. Orders: Orders Complete Blood Count Auto Diff Today E66.09 - Other obesity due to excess calories, I10 - Essential (primary) hypertension, K52.9 - Noninfective gastroenteritis and colitis, unspecified, R73.03 - Prediabetes Comprehensive Met. Panel Today E66.09 - Other obesity due to excess calories, I10 - Essential (primary) hypertension, K52.9 - Noninfective gastroenteritis and colitis, unspecified, R73.03 - Prediabetes Coding Level of Care Code Est Pt Level 4 (37220) Diagnoses Hypertension, essential I10 Inflammatory bowel disease K52.9 Class 1 obesity due to excess calories with serious comorbidity and body mass index (BMI) of 31.0 to 31.9 in adult E66.09; Z68.31 Body mass index: BMI 31.0-31.9 Obesity classification: adult class 1 (BMI 30 - 34.9) Serious obesity comorbidity presence: with serious comorbidity Pre-diabetes R73.03 Additional Codes MANJINDER-7 Assessment Billing - MANJINDER-7 Assessment Tool: MANJINDER-7 Assessment [id number] ([id number])
== END 2023-06-20 09:04 | disposition home or self-care (01) ==
PROVIDERS: PCP Internal Medicine; Visit Provider Internal Medicine
DX: I10 Essential (primary) hypertension (principal); K52.9 Noninfective gastroenteritis and colitis, unspecified; E66.09 Other obesity due to excess calories; Z68.31 Body mass index [BMI] 31.0-31.9, adult; R73.03 Prediabetes
CPT/HCPCS: 99214

== ENCOUNTER 2023-10-14 07:12 | Outpatient (REF) | payer MEDICARE, SELFPAY ==
[2023-10-14 11:10] LABS: MANUAL DIFF FLAG NO
[2023-10-14 11:15] LABS: Basophils Absolute Auto 0.1 X10*3/uL (0.0-0.2); Basophils Percent Auto 0.7 % (0-2); Eosinophils Absolute Auto 0.2 X10*3/uL (0.0-0.4); Eosinophils Percent Auto 1.9 % (0-4); Hematocrit 40.9 % (42.0-52.0); Hemoglobin 13.4 g/dl (14.0-18.0); Imm Gran Abs Auto 0.03 X10*3/uL (0.00-0.03); Imm Gran Pct Auto 0.3 % (0.0-0.4); Lymphocytes Percent Auto 21.1 % (20-40); Mean Corpuscular HGB Conc 32.8 g/dl (31.0-36.0); Mean Corpuscular Hemoglobin 29.5 pg (27.0-33.0); Mean Corpuscular Volume 90.1 fL (80.0-98.0); Mean Platelet Volume 10.3 fL (9.4-12.4); Monocytes Absolute Auto 0.8 X10*3/uL (0.1-1.2); Monocytes Percent Auto 8.8 % (2-11); Neutrophils Absolute Auto 6.4 x10*3/uL (2.0-8.3); Neutrophils Percent Auto 67.2 % (45-73); Platelet Count 407 X10*3/uL (160-400); Red Blood Count 4.54 X10*6/uL (4.60-5.80); Red Cell Distribution Width 14.5 % (11.0-16.0); White Blood Count 9.6 X10*3/uL (4.8-10.8)
[2023-10-14 11:37] LABS: Alanine Aminotransferase 19 U/L (0-40); Albumin Level 3.8 g/dL (3.5-5.0); Alkaline Phosphatase 70 U/L (39-117); Anion Gap 11 (12-20); Aspartate Amino Transferase 22 U/L (5-37); Bilirubin Total 0.3 mg/dL (0.0-1.0); Blood Urea Nitrogen 21 mg/dL (9-16); Calcium 9.6 mg/dL (8.4-10.2); Carbon Dioxide 22 mmol/L (22-29); Chloride 109 mmol/L (96-108); Estimated Glomerular Filt Rate > 60; Glucose Random 103 mg/dL (60-115); Sodium 138 mmol/L (135-145); Total Protein 7.9 g/dL (6.5-8.0)
== END 2023-10-14 07:13 | disposition home or self-care (01) ==
LOC: HO.HMGCLDS 07:12
PROVIDERS: PCP Internal Medicine; Visit Provider Internal Medicine
DX: I10 Essential (primary) hypertension (principal); E66.09 Other obesity due to excess calories; R73.03 Prediabetes; K52.9 Noninfective gastroenteritis and colitis, unspecified
CPT/HCPCS: 36415; 80053; 85025

== ENCOUNTER 2023-10-24 11:19 | Outpatient (AMB) | payer MEDICARE, SELFPAY ==
[2023-10-24 11:20] VITALS: BP 150/90; PULSE 96; O2SAT 72; BMI 31.1
--- NOTE | 2023-10-24 11:20 | A.OFFPC_ITS ---
Vital Signs 10/24/23 11:20 Height 5 ft 6 in Weight 192 lb 8 oz BMI 31.1 BP 150/90 H Blood Pressure Location Lt brachial Position Sitting Pulse 96 Pulse Source Pulse Oximeter Pulse Oximetry (%) 72 L Oxygen Delivery Method Room Air Intake Visit Reasons: Annual PE - see comments Allergies hydromorphone [From Dilaudid] Adverse Reaction (Severe, Verified 10/24/23 11:23) Agitated peanuts Allergy (Severe, Uncoded 04/19/23 07:54) anaphylaxis Medication List - Last Reconciled 10/24/23 by Trena Fitzgerald MD amlodipine 5 mg PO DAILY 90 days bisacodyl (Dulcolax (bisacodyl)) 20 mg (4 x 5 mg) PO ONCE 1 day docusate sodium 100 mg PO BEDTIME hydrochlorothiazide 25 mg PO QAM 90 days hydrocortisone 2.5% (Proctosol HC) 1 appl CO BID-QID PRN lisinopril 40 mg PO DAILY 90 days mesalamine ER 0.375 grams PO QID methylcellulose (laxative) (Citrucel) 500 mg PO DAILY polyethylene glycol 3350 (Miralax) 238 grams PO ONCE Tobacco use date assessed: 10/24/23 Fall risk assessment: No Falls in past year Last assessed Fall Risk: 10/24/23 Dental Screening Dental Screen Date: 10/24/23 Did you have a dental visit in the last 12 months?: Yes Did you have a dental problem in the last 6 months where you did not have access to dental care?: No Was dental information given to patient?: Patient has dentist HPI Annual PE - see comments HPI Details 73-year-old gentleman came in today for physical examination Blood pressure is elevated today at 150/90, patient says that he was rushing to come here and could not find his watch I did recheck blood pressure again after 10 minutes and it is still 150 x 90 Patient says that he is monitoring it at home and it runs usually 120 systolic He will keep an eye on that It does not have any headache any chest pains any nausea vomiting He is due to have colonoscopy in January by Dr. Dahl [facility] Medication list reviewed Patient failed tandem walk PFS Medical History Tubular adenoma History of depression Osteoarthritis of right knee Pre-diabetes Hypertension, essential Surgical History History of total right knee replacement History of surgery on extremity Hx of elbow surgery Hx of hernia repair Hx of colonoscopy History of lumbar discectomy Hx of repair of rotator cuff Hx of arthroscopy of left knee Social History Household Members: Spouse Housing: House Are you a primary youth career specialist to a significant other at home: No Do you presently have visiting nurse or other home services: No Alcohol intake: current Alcohol intake frequency: holidays/special occasions only Comment: previously medicated with iv dilaudid Patient Tobacco Use Status: Never used Tobacco e-Cigarette/Vaping Use: Never Used Second Hand Smoke Exposure: No service: No Current occupational status: retired Current occupation: Left handed Cognitive needs: No Hearing needs: No Vision needs: No Questionnaire PHQ-9 Over the last 2 weeks, how often have you been bothered by any of the following problems? 1. Little interest or pleasure in doing things: not at all 2. Feeling down, depressed, or hopeless: not at all 3. Trouble falling or staying asleep, or sleeping too much: not at all 4. Feeling tired or having little energy: not at all 5. Poor appetite or overeating: not at all 6. Feeling bad about yourself - or that you are a failure or have let yourself or your family down: not at all 7. Trouble concentrating on things, such as reading the newspaper or watching television: not at all 8. Moving or speaking so slowly that other people could have noticed. Or the opposite - being so fidgety or restless that you have been moving around a lot more than usual: not at all 9. Thoughts that you would be better off or of hurting yourself in some way: not at all Total score: 0 Depression Screening Interpretation: Negative Depression Screening Done: Yes 31810 - PHQ-9 Billing: Yes Source: Developed by Drs. Kiel Gomez, Danuta Beard, Ronald Sagastume and colleagues, with an educational felipe from [employer]. Thrive Questionnaire Date Thrive assessed: 10/24/23 I am a: Patient What is your living situation today?: I have a steady place to live Within the past 12 months, did the food you bought not last and you didn't have the money to get more?: Never true Within the past 12 months, did you worry whether your food would run out before you got money to buy more?: Never true Do you have trouble paying for medicines?: No Do you have trouble getting transportation to medical appointments?: No Do you have trouble paying your heating and electricity bill?: No Do you have trouble taking care of your child, family member or friend?: No Do you have trouble with day-to-day activities such as bathing, preparing meals, shopping, managing finances, etc.?: No Are you currently unemployed and looking for a job?: No Are you interested in more education?: No Please select the resources that you would like help with: Housing/[facility] Currently or been in a relationship where the following occur: No concerns reported THRIVE Score: 0 AUDIT C Alcohol Use Questionnaire (AUDIT-C) 1. How often do you have a drink containing alcohol?: Monthly or less 2. How many drinks containing alcohol do you have on a typical day when you are drinking?: 1 or 2 3. How often do you have six or more drinks on one occasion?: Never Total Score: 1 Score Reviewed/Action Taken: Yes MANJINDER-7 AMB Questionnaire MANJINDER-7 Date MANJINDER - 7 assessed: 10/24/23 Feeling nervous, anxious, or on edge: 0 = Not at all Not being able to stop or control worryin = Not at all Worrying too much about different things: 0 = Not at all Trouble relaxin = Not at all Being so restless that it is hard to sit still: 0 = Not at all Becoming easily annoyed or irritable: 0 = Not at all Feeling afraid as if something awful might happen: 0 = Not at all Total MANJINDER-7 score (0-4 normal; 5-9 mild; 10-14 moderate; 15-21 severe): 0 Source: Developed by Drs. Kiel Gomez, Danuta Beard, Ronald Sagastume and colleagues, with an educational felipe from [employer]. MANJINDER-7 Assessment Billing MANJINDER-7 Assessment Tool: MANJINDER-7 Assessment 90402 Review of Systems Const Denies chills, Denies fever(s) and Denies headache(s) Eyes Denies blurry vision ENT Denies headache(s), Denies nasal discharge, Denies nasal obstruction, Denies odynophagia and Denies sinus pain Card Denies chest pain at rest and Denies chest pain with activity Resp Denies cough and Denies hemoptysis GI Denies odynophagia, Denies vomiting and Denies hematemesis Reports as per HPI Musc Denies abnormal gait Skin/Breast Reports as per HPI Neuro Denies Neuro-related abnormal movements, Denies Abnormal speech present, Denies abnormal gait, Denies headache(s) and Denies Sensory deficit (Neuro) Psych Denies mood swings and Denies paranoia Endo Reports as per HPI Héctor/Lymph Reports as per HPI Aller/Immun Reports as per HPI Physical exam (Primary Care) Vital Signs: Last Vital Signs Pulse 96 10/24/23 11:20 BP 150/90 H 10/24/23 11:20 Pulse Ox 72 L 10/24/23 11:20 Oxygen Delivery Method Room Air 10/24/23 11:20 BMI result Body Mass Index 31.1 Tobacco/Smoking Status: Tobacco use Status Tobacco use date assessed 10/24/23 10/24/23 11:25 Patient Tobacco Use Status Never used Tobacco 10/24/23 11:25 e-Cigarette/Vaping Use Never Used 10/24/23 11:25 PHQ-9: PHQ-9 Score PHQ-9: Total score 0 10/24/23 11:39 Depression Screening Interpretation: Negative Thrive Assessment: Date of Thrive Assessment Date Thrive assessed 10/24/23 10/24/23 11:25 Currently or been in a relationship where the following occur: No concerns reported Const General: cooperative, comfortable and no acute distress Orientation/consciousness: patient oriented x3 HENMT Head: Yes normocephalic and Yes atraumatic Eyes General: appearance normal, both eyes and all related structures Pupils: Equal, round and reactive pupils present EOM: EOMs intact bilaterally Neck Neck: Yes supple and No lymphadenopathy Thyroid: Thyroid normal Lymphatic: no lymphadenopathy noted Resp Effort & Inspection: normal respiratory effort and able to speak in complete sentences Auscultation: clear to auscultation bilaterally Cardio Heart sounds: S1 normal heart sound present and S2 normal heart sound present GI Palpation (GI): Soft to palpation and nontender Auscultation: normal bowel sounds General: Yes no CVA tenderness Back/Spine/Pelvis Back: no CVA tenderness Skin General skin exam: elasticity normal and turgor normal Neuro General: patient oriented x3 and gait normal Cranial nerves: Yes Equal, round and reactive pupils present Speech: No Abnormal speech present Sensory Exam: No Sensory deficit (Neuro) Coordination: tandem gait normal and Romberg test negative Extrem General: Yes normal exam except as noted and No edema Assessment and Plan Assessment & Plan (1) Encounter for general adult medical examination with abnormal findings: Code(s): Z00.01 - Encounter for general adult medical examination with abnormal findings (2) Hypertension, essential: Code(s): I10 - Essential (primary) hypertension (3) Inflammatory bowel disease: Code(s): K52.9 - Noninfective gastroenteritis and colitis, unspecified (4) Obesity due to excess calories: Code(s): E66.09 - Other obesity due to excess calories Qualifiers: Obesity classification: adult class 1 (BMI 30 - 34.9) Serious obesity comorbidity presence: with serious comorbidity Body mass index: BMI 31.0-31.9 Qualified Code(s): E66.09 - Other obesity due to excess calories; Z68.31 - Body mass index [BMI] 31.0-31.9, adult (5) Pre-diabetes: Code(s): R73.03 - Prediabetes Plan 73-year-old gentleman came in today for physical examination Blood pressure is elevated today at 150/90, patient says that he was rushing to come here and could not find his watch I did recheck blood pressure again after 10 minutes and it is still 150 x 90 Patient says that he is monitoring it at home and it runs usually 120 systolic He will keep an eye on that It does not have any headache any chest pains any nausea vomiting He is due to have colonoscopy in January by Dr. Dahl [facility] Patient suffers inflammatory disease and is taking medication through Medication list reviewed Patient failed tandem walk Medications: Refilled amlodipine 5 mg PO DAILY 90 tabs 1RF 90 days hydrochlorothiazide 25 mg PO QAM 90 tabs 1RF 90 days I10 - Essential (primary) hypertension lisinopril 40 mg PO DAILY 90 tabs 1RF 90 days Coding Level of Care Code Est Pt Level 3 (67778) Est Pt Prev Care >65y(07369) Diagnoses Encounter for general adult medical examination with abnormal findings Z00.01 Hypertension, essential I10 Inflammatory bowel disease K52.9 Class 1 obesity due to excess calories with serious comorbidity and body mass index (BMI) of 31.0 to 31.9 in adult E66.09; Z68.31 Obesity classification: adult class 1 (BMI 30 - 34.9) Serious obesity comorbidity presence: with serious comorbidity Body mass index: BMI 31.0-31.9 Pre-diabetes R73.03 Additional Codes MANJINDER-7 Assessment Billing - MANJINDER-7 Assessment Tool: MANJINDER-7 Assessment 96584 ([id number])
== END 2023-10-24 11:44 | disposition home or self-care (01) ==
PROVIDERS: PCP Internal Medicine; Visit Provider Internal Medicine
DX: Z00.00 Encounter for general adult medical examination without abnormal findings (principal); E66.09 Other obesity due to excess calories; Z68.31 Body mass index [BMI] 31.0-31.9, adult; R73.03 Prediabetes; I10 Essential (primary) hypertension; K52.9 Noninfective gastroenteritis and colitis, unspecified
CPT/HCPCS: 99397

== ENCOUNTER 2024-01-11 06:19 | Day surgery (SDC) | payer MEDICARE, SELFPAY ==
[2024-01-09 12:24] VITALS: BMI 31.1
--- NOTE | 2024-01-10 10:05 | P.CONAN_ITS ---
Documented by User: Che Ruggiero NP 01/10/24 10:05 HPI - Anesthesia Eval Consult details Narrative: 73yo M for Colonoscopy PMFSH Active Problems Active Problems: All Active Problems Inflammatory bowel disease (Acute) Tubular adenoma (Acute) Status post total knee replacement, right (Acute) Pre-diabetes (Acute) Preop cardiovascular exam (Acute) Abnormal EKG (Acute) Pre-op evaluation (Acute) Obesity (Acute) Impacted cerumen of both ears (Acute) Upper respiratory tract infection (Acute) Internal derangement of right knee (Acute) Obesity due to excess calories (Acute) Unilateral post-traumatic osteoarthritis, right knee (Acute) Encounter for general adult medical examination with abnormal findings (Acute) Colon cancer screening (Acute) Hypertension, essential (Acute) Past Medical History Medical History Tubular adenoma History of depression Osteoarthritis of right knee Pre-diabetes Hypertension, essential Family History Family history of problems with anesthesia: No Surgical History Surgical History History of total right knee replacement History of surgery on extremity Hx of elbow surgery Hx of hernia repair Hx of colonoscopy History of lumbar discectomy Hx of repair of rotator cuff Hx of arthroscopy of left knee History of Problems with Anesthesia: No Social History Social History Household Members: Spouse Housing: House Are you a primary infant childcare provider to a significant other at home: No Do you presently have visiting nurse or other home services: No Alcohol intake: current Alcohol intake frequency: holidays/special occasions only Comment: previously medicated with iv dilaudid Patient Tobacco Use Status: Never used Tobacco e-Cigarette/Vaping Use: Never Used Second Hand Smoke Exposure: No Have you been hit, kicked, punched, or otherwise hurt by someone within the past year? If so, by whom?: No Are you DNR?: No Advance Directives: No Advance Directives Information Provided: Yes Recently lost weight without trying: No Nutrition Risks: No Nutritional Risk service: No Current occupational status: retired Current occupation: Left handed Cognitive needs: No Hearing needs: No Vision needs: No Meds Allergies Allergy/AdvReac Type Severity Reaction Status Date / Time hydromorphone [From Dilaudid] AdvReac Severe Agitated Verified 10/24/23 11:23 peanuts Allergy Severe anaphylaxis Uncoded 04/19/23 07:54 Exam Height,Weight and Vital Signs: Height 5 ft 6 in Weight 87.317 kg Assessment and Plan Assessment Anesthesia Assessment: Chart Reviewed Final Anesthetic Review Family History of Problems with Anesthesia: No History of Problems with Anesthesia: No Documented by User: Nano Scanlon MD 01/11/24 07:38 PMFSH Past Medical History Medical History Tubular adenoma History of depression Osteoarthritis of right knee Pre-diabetes Hypertension, essential Surgical History Surgical History History of total right knee replacement History of surgery on extremity Hx of elbow surgery Hx of hernia repair Hx of colonoscopy History of lumbar discectomy Hx of repair of rotator cuff Hx of arthroscopy of left knee Social History Social History Household Members: Spouse Housing: House Are you a primary infant childcare provider to a significant other at home: No Do you presently have visiting nurse or other home services: No Alcohol intake: current Alcohol intake frequency: holidays/special occasions only Comment: previously medicated with iv dilaudid Patient Tobacco Use Status: Never used Tobacco e-Cigarette/Vaping Use: Never Used Second Hand Smoke Exposure: No Have you been hit, kicked, punched, or otherwise hurt by someone within the past year? If so, by whom?: No Are you DNR?: No Advance Directives: No Advance Directives Information Provided: Yes Recently lost weight without trying: No Nutrition Risks: No Nutritional Risk service: No Current occupational status: retired Current occupation: Left handed Cognitive needs: No Hearing needs: No Vision needs: No Meds Allergies Allergy/AdvReac Type Severity Reaction Status Date / Time hydromorphone [From Dilaudid] AdvReac Severe Agitated Verified 10/24/23 11:23 peanuts Allergy Severe anaphylaxis Uncoded 04/19/23 07:54 Exam Airway Mallampati Class: II TM Dist: >3cm Neck ROM: Full Heart: rrr Lungs: cta Assessment and Plan Assessment Anesthesia Assessment: Anesthesia Plan Discussed Final Anesthetic Review NPO: Yes ASA Class: III Final Preanesthetic Review: No Changes in Pt Med Stat, Meds/Allgs Chart Reviewed, Consent Obtained/Reviewed and Anes Risks/Benef Reviewed Patient Risk: Intermediate Procedure Risk: Intermediate Anesthetic Plan Anesthetic Plan: MAC: Disposition: Standard PACU
[2024-01-11 06:31] VITALS: BP 127/78; PULSE 76; RESP 18; TEMP 36.9; O2SAT 97; BMI 31.4
--- NOTE | 2024-01-11 06:31 | P.HPSUR_ITS ---
Pre-Procedural Eval Section A - 24 Hr Update-Section A only Date of Service: 01/11/24 Section B - Complete if H&P > 30 days Chief Complaint: Ulcerative colitis, unspecified, without complicat Relevant Family History (Specify if Yes): No Relevant Social History: None Present Medications: see Short Stay Collaborative assessment Medical History: Significant History (Tubular adenoma History of depression O steoarthritis of right knee Pre-diabetes Hypertension, essential) History of Previous Operations: Relevant previous surgery/procedure and date(s) (History of total right knee replacement History of surgery on extremity Hx of elbow surgery Hx of hernia repair Hx of colonoscopy History of lumbar discectomy Hx of repair of rotator cuff Hx of arthroscopy of left knee) Allergies: Allergies Allergy/AdvReac Type Severity Reaction Status Date / Time hydromorphone [From Dilaudid] AdvReac Severe Agitated Verified 10/24/23 11:23 peanuts Allergy Severe anaphylaxis Uncoded 04/19/23 07:54 Review of Systems Sugical H&P ROS: Negative: Constitution, Cardiovascular, Respiratory, Neurological, Psychiatric, Hem-Onc, Allergic/Immunologic, Gastrointestinal, Genitourinary, Musculoskeletal, Integumentary, Endocrine and Eyes/Ears/Nose/Throat Exam Surgical H&P Exam: Normal: HEENT, Normal: Heart, Normal: Lungs, Normal: Extremities, Normal: Abdomen, Normal: Skin and Normal: Neurological Plan Diagnosis/Plan: Unchanged I have reviewed the history and physical and performed a pertinent physical examination on my patient. No changes have occurred unless specified. Time Spent With Patient Time: Total time managing care of this patient today ____ minutes.
[2024-01-11] MEDS: 0.9 % Sodium Chloride 500 ML 50 ML IV (06:52)
--- NOTE | 2024-01-11 08:03 | HO.OPN-COLON ---
Colonoscopy Operative Note Operative Note Date of Service: 01/11/24 Narrative: Operative Information Procedure Description: Colonoscopy Indication: Hx of colitis Anesthesia: MAC COLONOSCOPY Instrument: Olympus variable stiffness pediatric scope 190L Colonoscopy Monitoring: Vital signs and clinical assessment, continuous EKG monitoring, Pulse oximetry, Carbon Dioxide monitoring and blood pressure monitoring were done throughout the procedure. Colon withdrawal time was 10 minutes. Procedure: The patient was placed in the left lateral decubitis position and pre-procedure medications were administered. After a digital rectal examination of the ano-rectum, the video colonoscope was inserted into the rectum and advanced through the colon to the cecum/TI. The colonoscope was slowly withdrawn in a retrograde panoramic fashion and the colon mucosa was carefully examined including a retroflexed view of the rectum. Findings and interventions are described below. Procedure Difficulty: easy Findings: Terminal Ileum-not intubated Cecum:normal Ascending Colon: normal Transverse Colon -normal Descending Colon:normal Sigmoid Colon: mild patchy erythema in the distal colon, bx taken-moderate diverticulosis Rectum: Retroflexion with small internal hemorrhoids seen, grade I, 5-6 mm sessile polyp removed with cold snare, rectal bx taken Anorectum - normal Intervention: cold snare, cold forceps bx Colon preparation: Paradis Bowel Preparation Scale Right colon; 2 Transverse colon: 3 Left colon; 3 (0 = Unprepared colon segment with mucosa not seen due to solid stool that cannot be cleared. 1 = Portion of mucosa of the colon segment seen, but other areas of the colon segment not well seen due to staining, residual stool and/or opaque liquid. 2 = Minor amount of residual staining, small fragments of stool and/or opaque liquid, but mucosa of colon segment seen well. 3 = Entire mucosa of colon segment seen well with no residual staining, small fragments of stool or opaque liquid) Impression and Post Procedure Diagnosis: diverticulosis colon polyp mild colitis internal hemorrhoids Plan: High fiber diet leaflet Avoid straining at stool, epsom salts and sitz bath, anusol supps or cream Repeat Colonoscopy in 1-2 years or earlier if clinically indicated cont with mesalamine for the moment Above findings were reviewed with the patient and relevant handouts were provided if indicated.
[2024-01-11 08:14] VITALS: BP 89/57; PULSE 65; RESP 16; TEMP 36.1; O2SAT 97
[2024-01-11 08:29] VITALS: BP 112/71; PULSE 67; RESP 20; TEMP 36.8; O2SAT 95
== END 2024-01-11 08:56 | disposition home or self-care (01) ==
PROVIDERS: PCP Internal Medicine; Visit Provider Internal Medicine Gastroenterology
PROC: 0DJD8ZZ Inspection of Lower Intestinal Tract, Via Natural or Artificial Opening Endoscopic (ICD-10-PCS; CPT 45378; principal; 2024-01-11 07:30)
DX: K62.1 Rectal polyp (principal); K51.90 Ulcerative colitis, unspecified, without complications; K57.30 Diverticulosis of large intestine without perforation or abscess without bleeding; K64.0 First degree hemorrhoids; Z86.0101 Personal history of adenomatous and serrated colon polyps; R73.03 Prediabetes; I10 Essential (primary) hypertension
CPT/HCPCS: 45385; 45380; 88305; J2003; J2704

== ENCOUNTER → 2024-01-11 06:19 | Outpatient (BNV) | payer MEDICARE, SELFPAY | PROVIDERS: PCP Internal Medicine; Visit Provider Internal Medicine Gastroenterology | DX: K52.9 Noninfective gastroenteritis and colitis, unspecified (principal); K62.1 Rectal polyp; K57.30 Diverticulosis of large intestine without perforation or abscess without bleeding; K64.0 First degree hemorrhoids | CPT/HCPCS: 45380; 45385 ==

== ENCOUNTER 2024-01-22 07:42 | Outpatient (AMB) | payer MEDICARE, SELFPAY ==
--- NOTE | 2024-01-22 07:54 | MHC.OFFVIS ---
Vital Signs 01/22/24 07:55 Height 5 ft 6 in Weight 194 lb BMI 31.3 BP 137/65 Blood Pressure Location Lt brachial Position Sitting Pulse 71 Intake Visit Reasons: S/P Fert[facility]; Dr. rosa Intake Note: Patient follow up for Colitis and Colonoscopy results. Patient denies any GI issues. Certified Indoor Environmentalist Required: No Accompanied by: Self / Same As Patient Allergies hydromorphone [From Dilaudid] Adverse Reaction (Severe, Verified 01/22/24 07:53) Agitated peanuts Allergy (Severe, Uncoded 04/19/23 07:54) anaphylaxis HPI HPI S/P [facility]ert[facility]; Dr. rosa: Details: LAST VISIT Inflammatory bowel disease Colitis Plan Continue avoiding dietary triggers. Patient was encouraged try not to swim in chlorinated pool. Patient since 2 to 3 times a week in high chlorine pull at the [facility]. Patient was encouraged to try different exercises. Continue mesalamine. Patient will try Colace. Patient will be due to go for colorectal screening after August. What to expect before during and after the procedure discussed with patient. Clear liquid diet day before procedure as well as good bowel prep discussed with patient. I will see patient after the procedure, sooner on as needed basis. Patient is agreeable to this plan and verbalizes understanding of instructions. He was given the opportunity to ask questions and all questions answered. ? Thank you for allowing me to participate in his care Medications New docusate sodium 100 mg PO BEDTIME 90 caps 3RF K59.00 bisacodyl (Dulcolax (bisacodyl)) take 4 tabs at noon the day before your colonoscopy 20 mg (4 x 5 mg) PO ONCE 1 day 4 tabs 0RF Z12.11 polyethylene glycol 3350 (Miralax) As directed by gastroenterology department at [facility] 238 grams PO ONCE 238 grams 0RF Z12.11 COLONOSCOPY Findings: Terminal Ileum-not intubated Cecum:normal Ascending Colon: normal Transverse Colon -normal Descending Colon:normal Sigmoid Colon: mild patchy erythema in the distal colon, bx taken-moderate diverticulosis Rectum: Retroflexion with small internal hemorrhoids seen, grade I, 5-6 mm sessile polyp removed with cold snare, rectal bx taken Anorectum - normal Intervention: cold snare, cold forceps bx Colon preparation: Montgomery Bowel Preparation Scale Right colon; 2 Transverse colon: 3 Left colon; 3 (0 = Unprepared colon segment with mucosa not seen due to solid stool that cannot be cleared. 1 = Portion of mucosa of the colon segment seen, but other areas of the colon segment not well seen due to staining, residual stool and/or opaque liquid. 2 = Minor amount of residual staining, small fragments of stool and/or opaque liquid, but mucosa of colon segment seen well. 3 = Entire mucosa of colon segment seen well with no residual staining, small fragments of stool or opaque liquid) Impression and Post Procedure Diagnosis: diverticulosis colon polyp mild colitis internal hemorrhoids Plan: High fiber diet leaflet Avoid straining at stool, epsom salts and sitz bath, anusol supps or cream Repeat Colonoscopy in 1-2 years or earlier if clinically indicated cont with mesalamine for the moment PATHOLOGY RESULTS Diagnosis A. Colon, proximal sigmoid, biopsy: Colonic mucosa with reactive lymphoid aggregates and mild crypt distortion; no active colitis, granulomas or dysplasia. B. Colon, distal sigmoid, biopsy: Chronic colitis with mild activity; no granulomas or dysplasia. C. Colon, rectum, biopsy: Colonic mucosa with mild crypt distortion; no active colitis/proctitis, granulomas or dysplasia. D. Colon, rectal polyp: Hyperplastic polyp. TODAY'S VISIT Patient is here today for follow-up and to discuss colonoscopy results. Patient denies any ill effects from the prep, anesthesia or procedure itself. Patient reports that he is taking mesalamine every day and denies any diarrhea, bloody stool or mucus in his stool. Biopsy results discussed with patient. One hyperplastic polyp found in rectum. Chronic colitis with mild activity in distal sigmoid colon. Patient reports that he has been feeling well. Moving his bowels daily. Still taking Dulcolax and Citrucel daily. Patient denies melena, unintentional weight loss or ribbon like stools. Patient denies dyspepsia, dysphagia or odynophagia. Patient denies any other GI concerning symptoms. [facility] Medical History Tubular adenoma History of depression Osteoarthritis of right knee Pre-diabetes Hypertension, essential Surgical History History of total right knee replacement History of surgery on extremity Hx of elbow surgery Hx of hernia repair Hx of colonoscopy History of lumbar discectomy Hx of repair of rotator cuff Hx of arthroscopy of left knee Social History Household Members: Spouse Housing: House Are you a primary managed care liaison to a significant other at home: No Do you presently have visiting nurse or other home services: No Alcohol intake: current Alcohol intake frequency: holidays/special occasions only Comment: previously medicated with iv dilaudid Patient Tobacco Use Status: Never used Tobacco e-Cigarette/Vaping Use: Never Used Second Hand Smoke Exposure: No service: No Current occupational status: retired Current occupation: Left handed Cognitive needs: No Hearing needs: No Vision needs: No Review of Systems Const Denies weight gain and Denies weight loss ENT Reports no additional complaints, Denies dysphagia and Denies odynophagia Card Reports no additional complaints Resp Reports no additional complaints GI Denies abdominal pain, Denies belching, Denies melena, Denies bloating, Denies change in bowel habits, Denies dysphagia, Denies excessive flatus, Denies dyspepsia, Denies heartburn, Denies diarrhea, Denies loose stools, Denies nausea, Denies odynophagia and Denies vomiting Reports no additional complaints Musc Reports no additional complaints Neuro Reports no additional complaints Psych Reports no additional complaints Endo Reports no additional complaints Physical Exam Vital Signs: Last Vital Signs Pulse 71 01/22/24 07:55 BP 137/65 01/22/24 07:55 BMI result Body Mass Index 31.3 Const General: healthy appearing, no acute distress and well developed Nutritional Appearance: well nourished Orientation/consciousness: patient oriented x3 Resp Effort & Inspection: normal respiratory effort, able to speak in complete sentences, no tracheal deviation and symmetric chest movement Auscultation: clear to auscultation bilaterally Cardio Rate: regular rate GI Inspection: Yes normal to inspection and No distended Palpation (GI): Soft to palpation, not firm, nontender and No hepatosplenomegaly present Auscultation: normal bowel sounds General: Yes no CVA tenderness Back/Spine/Pelvis Back: no CVA tenderness Skin General skin exam: elasticity normal, turgor normal and dry skin Neuro General: patient oriented x3 Psych Appearance: grossly normal Mental Status: mental status grossly normal Assessment & Plan Assessment & Plan (1) Inflammatory bowel disease: Code(s): K52.9 - Noninfective gastroenteritis and colitis, unspecified Category: Medical (2) Colitis: Code(s): K52.9 - Noninfective gastroenteritis and colitis, unspecified (3) Status post colonoscopy: Code(s): Z98.890 - Other specified postprocedural states Plan Continue mesalamine. Patient reports that he is feeling well. Denies any GI concerning symptoms. Continue taking Dulcolax and Citrucel may take probiotics. Colonoscopy in 1-2 years, sooner if clinically necessary. Patient is agreeable to this plan and verbalizes understanding of instructions. He was given the opportunity to ask questions and all questions answered. Thank you for allowing me to participate in his care Medications: New bisacodyl (Dulcolax (bisacodyl)) 10 mg (2 x 5 mg) PO BEDTIME 180 tabs 4RF methylcellulose (laxative) (Citrucel) 500 mg PO DAILY 30 tabs 2RF K59.00 - Constipation, unspecified Changed From mesalamine ER 0.375 grams PO QID 360 caps 0RF To mesalamine ER 1.5 grams (4 x 0.375 gram) PO QAM 90 days 360 caps 3RF Coding Level of Care Code Est Pt Level 3 (11960) Diagnoses Inflammatory bowel disease K52.9 Colitis K52.9 Status post colonoscopy Z98.890 Time Spent (min) 30 Comment 20 minutes spent with patient and additional 10 minutes spent reviewing his records
[2024-01-22 07:55] VITALS: BP 137/65; PULSE 71; BMI 31.3
== END 2024-01-22 08:22 | disposition home or self-care (01) ==
PROVIDERS: PCP Internal Medicine; Visit Provider Nurse Practitioner Family
DX: K52.9 Noninfective gastroenteritis and colitis, unspecified (principal); Z98.890 Other specified postprocedural states
CPT/HCPCS: 99213

== ENCOUNTER → 2024-01-22 07:42 | Outpatient (BNVA) | payer MEDICARE, SELFPAY | PROVIDERS: PCP Internal Medicine; Visit Provider Nurse Practitioner Family | DX: K52.9 Noninfective gastroenteritis and colitis, unspecified (principal); Z98.890 Other specified postprocedural states | CPT/HCPCS: 99212 ==

== ENCOUNTER 2024-02-13 06:13 | Outpatient (REF) | payer MEDICARE, SELFPAY ==
[2024-02-13 10:11] LABS: MANUAL DIFF FLAG NO
[2024-02-13 10:32] LABS: Basophils Percent Auto 0.4 % (0-2); Eosinophils Absolute Auto 0.2 X10*3/uL (0.0-0.4); Eosinophils Percent Auto 2.2 % (0-4); Hemoglobin 13.2 g/dl (14.0-18.0); Imm Gran Abs Auto 0.04 X10*3/uL (0.00-0.03); Imm Gran Pct Auto 0.4 % (0.0-0.4); Lymphocytes Percent Auto 20.2 % (20-40); Mean Corpuscular HGB Conc 33.8 g/dl (31.0-36.0); Mean Corpuscular Hemoglobin 31.6 pg (27.0-33.0); Mean Corpuscular Volume 93.3 fL (80.0-98.0); Mean Platelet Volume 10.5 fL (9.4-12.4); Monocytes Absolute Auto 0.8 X10*3/uL (0.1-1.2); Monocytes Percent Auto 8.2 % (2-11); Neutrophils Absolute Auto 6.7 x10*3/uL (2.0-8.3); Neutrophils Percent Auto 68.6 % (45-73); Platelet Count 369 X10*3/uL (160-400); Red Blood Count 4.18 X10*6/uL (4.60-5.80); Red Cell Distribution Width 13.8 % (11.0-16.0); White Blood Count 9.8 X10*3/uL (4.8-10.8)
[2024-02-13 10:41] LABS: Alanine Aminotransferase 17 U/L (0-40); Albumin Level 3.8 g/dL (3.5-5.0); Alkaline Phosphatase 68 U/L (39-117); Anion Gap 15 (12-20); Aspartate Amino Transferase 28 U/L (5-37); Bilirubin Total 0.3 mg/dL (0.0-1.0); Blood Urea Nitrogen 28 mg/dL (9-16); Calcium 9.7 mg/dL (8.4-10.2); Carbon Dioxide 19 mmol/L (22-29); Chloride 108 mmol/L (96-108); Estimated Glomerular Filt Rate 52; Glucose Random 107 mg/dL (60-115); Potassium 3.7 mmol/L (3.3-5.1); Sodium 138 mmol/L (135-145); Total Protein 7.9 g/dL (6.5-8.0)
[2024-02-13 10:48] LABS: Estimated Average Glucose 120 mg/dL; Hemoglobin A1C 141.5255 umol/L; Hemoglobin A1c % 5.8 % (<6.0); Total Hemoglobin (HGBA1C) 3569.6283 umol/L
== END 2024-02-13 06:14 | disposition home or self-care (01) ==
LOC: HO.HMGCLDS 06:13
PROVIDERS: PCP Internal Medicine; Visit Provider Internal Medicine
DX: I10 Essential (primary) hypertension (principal); E66.09 Other obesity due to excess calories; Z68.31 Body mass index [BMI] 31.0-31.9, adult; R73.03 Prediabetes; K52.9 Noninfective gastroenteritis and colitis, unspecified
CPT/HCPCS: 36415; 80053; 83036; 85025

== ENCOUNTER 2024-02-20 11:13 | Outpatient (AMB) | payer MEDICARE, SELFPAY ==
[2024-02-20 11:26] VITALS: BP 142/80; PULSE 73; O2SAT 96; BMI 31.7
--- NOTE | 2024-02-20 11:26 | A.OFFPC_ITS ---
Vital Signs 02/20/24 11:26 Height 5 ft 6 in Weight 196 lb 6 oz BMI 31.7 BP 142/80 H Blood Pressure Location Lt brachial Position Sitting Pulse 73 Pulse Source Pulse Oximeter Pulse Oximetry (%) 96 Oxygen Delivery Method Room Air Intake Visit Reasons: 4 mon f/u Allergies hydromorphone [From Dilaudid] Adverse Reaction (Severe, Verified 01/22/24 07:53) Agitated peanuts Allergy (Severe, Uncoded 04/19/23 07:54) anaphylaxis Medication List - Last Reconciled 02/20/24 by Trena Fitzgerald MD amlodipine 5 mg PO DAILY 90 days bisacodyl (Dulcolax (bisacodyl)) 10 mg (2 x 5 mg) PO BEDTIME docusate sodium 100 mg PO BEDTIME hydrochlorothiazide 25 mg PO QAM 90 days lisinopril 40 mg PO DAILY 90 days mesalamine ER 1.5 grams (4 x 0.375 gram) PO QAM 90 days methylcellulose (laxative) (Citrucel) 500 mg PO DAILY Tobacco use date assessed: 10/24/23 Dental Screening Dental Screen Date: 10/24/23 HPI 4 mon f/u HPI Details 74-year-old gentleman came in today for regular follow-up appointment Patient had colonoscopy about a month ago. The procedure indicated improvement, although diverticulosis and residual colitis were still present. He was advised to continue mesalamine therapy. Blood pressure readings were elevated during the visit at 142/80 mmHg compared to home readings of 125/78 mmHg. Recent laboratory results indicate slight anemia with hemoglobin at 13.2 g/dL, compared to previous levels of 13.9 g/dL, attributed to microscopic bleeding. Kidney function tests show a glomerular filtration rate of 52 mL/min/1.73 m?, down from a previous 60. These changes prompted a need for re-evaluating kidney functions sooner than the upcoming June appointment. Blood glucose levels highlighted a prediabetes condition, with an A1c of 5.8%. BMI is elevated need to lose weight Medication list reviewed Continue amlodipine 5 mg, hydrochlorothiazide 25 mg, lisinopril 40 mg And mesalamine through Gastroenterology Lab order placed to be done in couple of weeks meanwhile patient was advised to push fluid Plan - Diverticulosis and Colitis: Continue m esalamine therapy. Routine monitoring with follow-up in a year unless symptoms escalate. - Hypertension: Blood pressure to be mon itored, encourage checking at home as clinic readings may be falsely elevated. - Anemia: Monitor hemoglobin levels, pot entially linked to microscopic gastrointestinal bleeding. - Decreased Kidney Function: Repeat [facility] ey function tests in a couple of weeks. Encourage adequate hydration. - Prediabetes: Maintain current diet and exercise regimen. No pharmacotherapy required unless condition progresses. I discussed the current state of the patient's health and the improvements noticed from the recent colonoscopy. There are still signs of diverticulosis and colitis, for which continued mesalamine therapy is advised. We reviewed the patient's elevated blood pressure, both in-office and at home, and related anemia possibly due to minor intestinal bleeding. The slight drop in kidney function was noted, and I recommended repeating labs in a few weeks and increasing fluid intake to aid kidney filtration. Given a family history of diabetes, we explored the patient's own prediabetic status with guidance to maintain the current diet and exercise regimen. I advised avoiding NSAIDs like Aleve due to potential impacts on kidney function. A follow-up appointment is set for June, with earlier labs if needed. [facility] Medical History Tubular adenoma History of depression Osteoarthritis of right knee Pre-diabetes Hypertension, essential Surgical History History of total right knee replacement History of surgery on extremity Hx of elbow surgery Hx of hernia repair Hx of colonoscopy History of lumbar discectomy Hx of repair of rotator cuff Hx of arthroscopy of left knee Social History Household Members: Spouse Housing: House Are you a primary healthcare science specialist to a significant other at home: No Do you presently have visiting nurse or other home services: No Alcohol intake: current Alcohol intake frequency: holidays/special occasions only Comment: previously medicated with iv dilaudid Patient Tobacco Use Status: Never used Tobacco e-Cigarette/Vaping Use: Never Used Second Hand Smoke Exposure: No service: No Current occupational status: retired Current occupation: Left handed Cognitive needs: No Hearing needs: No Vision needs: No Questionnaire Thrive Questionnaire Date Thrive assessed: 02/20/24 I am a: Patient What is your living situation today?: I have a steady place to live Within the past 12 months, did the food you bought not last and you didn't have the money to get more?: Never true Within the past 12 months, did you worry whether your food would run out before you got money to buy more?: Never true Do you have trouble paying for medicines?: No Do you have trouble getting transportation to medical appointments?: No Do you have trouble paying your heating and electricity bill?: No Do you have trouble taking care of your child, family member or friend?: No Do you have trouble with day-to-day activities such as bathing, preparing meals, shopping, managing finances, etc.?: No Are you currently unemployed and looking for a job?: No Are you interested in more education?: No Please select the resources that you would like help with: None Currently or been in a relationship where the following occur: No concerns reported THRIVE Score: 0 AUDIT C Alcohol Use Questionnaire (AUDIT-C) 1. How often do you have a drink containing alcohol?: Monthly or less 2. How many drinks containing alcohol do you have on a typical day when you are drinking?: 1 or 2 3. How often do you have six or more drinks on one occasion?: Never Total Score: 1 Score Reviewed/Action Taken: Yes MANJINDER-7 AMB Questionnaire MANJINDER-7 Date MANJINDER - 7 assessed: 10/24/23 Source: Developed by Drs. Kiel Gomez, Danuta Beard, Ronald Sagastume and colleagues, with an educational felipe from [employer]. Review of Systems Const Denies chills and Denies fever(s) ENT Denies epistaxis and Denies nasal discharge Card Denies chest pain Resp Denies chest congestion, Denies cough and Denies hemoptysis GI Denies diarrhea and Denies nausea Skin/Breast Denies rash Neuro Reports no additional complaints Psych Reports no additional complaints Endo Reports no additional complaints Physical exam (Primary Care) Vital Signs: Last Vital Signs Pulse 73 02/20/24 11:26 BP 142/80 H 02/20/24 11:26 Pulse Ox 96 02/20/24 11:26 Oxygen Delivery Method Room Air 02/20/24 11:26 BMI result Body Mass Index 31.7 Tobacco/Smoking Status: Tobacco use Status Tobacco use date assessed 10/24/23 02/20/24 11:29 Patient Tobacco Use Status Never used Tobacco 02/20/24 11:29 e-Cigarette/Vaping Use Never Used 02/20/24 11:29 Thrive Assessment: Date of Thrive Assessment Date Thrive assessed 02/20/24 02/20/24 11:29 Currently or been in a relationship where the following occur: No concerns reported Const General: cooperative, comfortable and no acute distress Orientation/consciousness: patient oriented x3 HENMT Head: Yes normocephalic Eyes General: appearance normal, both eyes and all related structures Neck Neck: Yes supple Resp Effort & Inspection: normal respiratory effort, no cough and no stridor Cardio Rhythm: regular rhythm Heart sounds: S1 normal heart sound present and S2 normal heart sound present Skin General skin exam: turgor normal Neuro General: patient oriented x3, tone normal and moves all extremities Extrem Right lower extremity: no edema Left lower extremity: no edema Coding Level of Care Code Est Pt Level 4 (32914) Complex EM visit Add On G2211 Diagnoses Decreased GFR R94.4 Hypertension, essential I10 Class 1 obesity due to excess calories with serious comorbidity and body mass index (BMI) of 31.0 to 31.9 in adult E66.09; Z68.31 Obesity classification: adult class 1 (BMI 30 - 34.9) Serious obesity comorbidity presence: with serious comorbidity Body mass index: BMI 31.0-31.9 Pre-diabetes R73.03 Inflammatory bowel disease K52.9 Assessment & Plan Assessment & Plan (1) Decreased GFR: Code(s): R94.4 - Abnormal results of kidney function studies Category: Medical (2) Hypertension, essential: Code(s): I10 - Essential (primary) hypertension Category: Medical (3) Obesity due to excess calories: Code(s): E66.09 - Other obesity due to excess calories Category: Medical Qualifiers: Obesity classification: adult class 1 (BMI 30 - 34.9) Serious obesity comorbidity presence: with serious comorbidity Body mass index: BMI 31.0-31.9 Qualified Code(s): E66.09 - Other obesity due to excess calories; Z68.31 - Body mass index [BMI] 31.0-31.9, adult (4) Pre-diabetes: Code(s): R73.03 - Prediabetes Category: Medical (5) Inflammatory bowel disease: Code(s): K52.9 - Noninfective gastroenteritis and colitis, unspecified Category: Medical Plan 74-year-old gentleman came in today for regular follow-up appointment Patient had colonoscopy about a month ago. The procedure indicated improvement, although diverticulosis and residual colitis were still present. He was advised to continue mesalamine therapy. Blood pressure readings were elevated during the visit at 142/80 mmHg compared to home readings of 125/78 mmHg. Recent laboratory results indicate slight anemia with hemoglobin at 13.2 g/dL, compared to previous levels of 13.9 g/dL, attributed to microscopic bleeding. Kidney function tests show a glomerular filtration rate of 52 mL/min/1.73 m?, down from a previous 60. These changes prompted a need for re-evaluating kidney functions sooner than the upcoming June appointment. Blood glucose levels highlighted a prediabetes condition, with an A1c of 5.8%. BMI is elevated need to lose weight Medication list reviewed Continue amlodipine 5 mg, hydrochlorothiazide 25 mg, lisinopril 40 mg And mesalamine through Gastroenterology Lab order placed to be done in couple of weeks meanwhile patient was advised to push fluids Plan - Diverticulosis and Colitis: Continue mesalamine therapy. Routine monitoring with follow-up in a year unless symptoms escalate. - Hypertension: Blood pressure to be monitored, encourage checking at home as clinic readings may be falsely elevated. - Anemia: Monitor hemoglobin levels, potentially linked to microscopic gastrointestinal bleeding. - Decreased Kidney Function: Repeat kidney function tests in a couple of weeks. Encourage adequate hydration. - Prediabetes: Maintain current diet and exercise regimen. No pharmacotherapy required unless condition progresses. I discussed the current state of the patient's health and the improvements noticed from the recent colonoscopy. There are still signs of diverticulosis and colitis, for which continued mesalamine therapy is advised. We reviewed the patient's elevated blood pressure, both in-office and at home, and related anemia possibly due to minor intestinal bleeding. The slight drop in kidney function was noted, and I recommended repeating labs in a few weeks and increasing fluid intake to aid kidney filtration. Given a family history of diabetes, we explored the patient's own prediabetic status with guidance to maintain the current diet and exercise regimen. I advised avoiding NSAIDs like Aleve due to potential impacts on kidney function. A follow-up appointment is set for June, with earlier labs if needed. Orders: Orders Basic Metabolic Panel 2 Weeks R94.4 - Abnormal results of kidney function studies
== END 2024-02-20 13:50 | disposition home or self-care (01) ==
PROVIDERS: PCP Internal Medicine; Visit Provider Internal Medicine
DX: R94.4 Abnormal results of kidney function studies (principal); I10 Essential (primary) hypertension; E66.09 Other obesity due to excess calories; Z68.31 Body mass index [BMI] 31.0-31.9, adult; R73.03 Prediabetes; K52.9 Noninfective gastroenteritis and colitis, unspecified

== ENCOUNTER → 2024-02-20 11:13 | Outpatient (BNVA) | payer MEDICARE, SELFPAY | PROVIDERS: PCP Internal Medicine; Visit Provider Internal Medicine | DX: R94.4 Abnormal results of kidney function studies (principal); E66.09 Other obesity due to excess calories; Z68.31 Body mass index [BMI] 31.0-31.9, adult; R73.03 Prediabetes; K52.9 Noninfective gastroenteritis and colitis, unspecified; Z71.3 Dietary counseling and surveillance | CPT/HCPCS: 99212 ==

== ENCOUNTER 2024-03-05 09:48 | Outpatient (REF) | payer MEDICARE, SELFPAY ==
[2024-03-05 15:01] LABS: Anion Gap 14 (12-20); Blood Urea Nitrogen 35 mg/dL (9-16); Calcium 10.2 mg/dL (8.4-10.2); Carbon Dioxide 25 mmol/L (22-29); Chloride 103 mmol/L (96-108); Estimated Glomerular Filt Rate 41; Glucose Random 90 mg/dL (60-115); Potassium 4.2 mmol/L (3.3-5.1); Sodium 138 mmol/L (135-145)
== END 2024-03-05 09:49 | disposition home or self-care (01) ==
LOC: HO.HMGCLDS 09:48
PROVIDERS: PCP Internal Medicine; Visit Provider Internal Medicine
DX: R94.4 Abnormal results of kidney function studies (principal)
CPT/HCPCS: 36415; 80048

== ENCOUNTER 2024-03-15 08:33 | Outpatient (REF) | payer MEDICARE, SELFPAY | END 2024-03-15 08:34 | disposition home or self-care (01) | LOC: HO.HMGCX 08:33 | PROVIDERS: PCP Internal Medicine; Visit Provider Internal Medicine | DX: M25.511 Pain in right shoulder (principal); R94.4 Abnormal results of kidney function studies; D64.9 Anemia, unspecified | CPT/HCPCS: 73030; 99212 ==

== ENCOUNTER 2024-03-15 08:33 | Outpatient (AMB) | payer MEDICARE, SELFPAY ==
[2024-03-15 08:36] VITALS: BP 148/82; PULSE 75; O2SAT 98; BMI 31.6
--- NOTE | 2024-03-15 08:36 | A.OFFPC_ITS ---
Vital Signs 3 03/15/24 08:36 Height 5 ft 6 in Weight 196 lb BMI 31.6 BP 148/82 H Blood Pressure Location Rt brachial Position Sitting Pulse 75 Pulse Source Pulse Oximeter Pulse Oximetry (%) 98 Oxygen Delivery Method Room Air Intake Visit Reasons: Shoulder Pain Information Interpreted: non-clinical only Allergies hydromorphone [From Dilaudid] Adverse Reaction (Severe, Verified 03/15/24 08:37) Agitated peanuts Allergy (Severe, Uncoded 04/19/23 07:54) anaphylaxis Medication List - Last Reconciled 03/15/24 by Trena Fitzgerald MD amlodipine 5 mg PO DAILY 90 days bisacodyl (Dulcolax (bisacodyl)) 10 mg (2 x 5 mg) PO BEDTIME docusate sodium 100 mg PO BEDTIME hydrochlorothiazide 25 mg PO QAM 90 days lisinopril 40 mg PO DAILY 90 days mesalamine ER 1.5 grams (4 x 0.375 gram) PO QAM 90 days methylcellulose (laxative) (Citrucel) 500 mg PO DAILY Tobacco use date assessed: 03/15/24 Fall risk assessment: No Falls in past year Last assessed Fall Risk: 03/15/24 Dental Screening Dental Screen Date: 03/15/24 Did you have a dental visit in the last 12 months?: Yes Did you have a dental problem in the last 6 months where you did not have access to dental care?: No Was dental information given to patient?: Patient has dentist HPI Shoulder Pain 2 HPI0 Details Chief Complaint The patient presents with right shoulder pain following a sudden movement due to a smoke alarm. Assessment and Plan 74-year-old male with a history of chron ic anemia and deteriorating kidney function presenting with right shoulder pain. The shoulder discomfort began approximately 10 days ago after a sudden movement, with pain radiating up to the neck. The pain seems to be due to inflammation of the rotator cuff. The patient reports trying ice, heat, and topical treatments without relief. Due to the patient's kidney issues, they are unable to take ibuprofen, which complicates pain management. Labs indicate stable anemia but a noticeable decline in kidney function, prompting the need for nephrology consultation. 1. Chronic Anemia Anemia remains stable. No immediate changes in management were required during this visit. Regular monitoring of hemoglobin levels is recommended. 2. Disorder of kidney and ureter, unspec ified N28.9 Worsening kidney function indicated by increased creatinine levels (1.66) and decreased GFR (41). Follow-up with a manager portable is advised for further management and evaluation. Patient advised to continue avoiding nephrotoxic medications and increase fluid intake. 3. Primary osteoarthritis, right shoulde r M19.011 The shoulder pain appears related to rotator cuff inflammation. Treatment includes physical therapy to assist with mobility and reduce pain. Prescription for prednisone was provided to manage inflammation, and tramadol for nighttime pain relief. An x-ray was ordered to assess any structural damage. Diagnostic results - Labs: - Slight chronic anemia observed , but stable. - Elevated creatinine at 1.66 and decrea sed GFR to 41, indicating worsening kidney function. - Tests and Diagnostics: - X-ray of the right shoulder ordered. Problem List - Right Shoulder Inflammation - Chronic Anemia - Deteriorating Kidney Function Patient Instructions - Schedule and attend physical therapy s essions as recommended. - Take prednisone once daily with breakf ast. - Only take tramadol at night for pain r elief. Stand up slowly if dizziness occurs. - Continue to avoid ibuprofen due to kid fran concerns. - Increase water intake to support kidne y function. - Follow up with nephrology as scheduled at [facility]. - Get an x-ray of the right shoulder at the designated facility next to [facility]. - Collect prescribed medications from [facility]. COUNTS INCLUDE 234 BEDS AT THE [facility] Medical History Tubular adenoma History of depression Osteoarthritis of right knee Pre-diabetes Hypertension, essential Surgical History History of total right knee replacement History of surgery on extremity Hx of elbow surgery Hx of hernia repair Hx of colonoscopy History of lumbar discectomy Hx of repair of rotator cuff Hx of arthroscopy of left knee Social History Household Members: Spouse Housing: House Are you a primary residential care facility manager to a significant other at home: No Do you presently have visiting nurse or other home services: No Alcohol intake: current Alcohol intake frequency: holidays/special occasions only Comment: previously medicated with iv dilaudid Patient Tobacco Use Status: Never used Tobacco e-Cigarette/Vaping Use: Never Used Second Hand Smoke Exposure: No service: No Current occupational status: retired Current occupation: Left handed Cognitive needs: No Hearing needs: No Vision needs: No Questionnaire Thrive Questionnaire Date Thrive assessed: 10/17/23 I am a: Patient What is your living situation today?: I have a steady place to live Within the past 12 months, did the food you bought not last and you didn't have the money to get more?: Never true Within the past 12 months, did you worry whether your food would run out before you got money to buy more?: Never true Do you have trouble paying for medicines?: No Do you have trouble getting transportation to medical appointments?: No Do you have trouble paying your heating and electricity bill?: No Do you have trouble taking care of your child, family member or friend?: No Do you have trouble with day-to-day activities such as bathing, preparing meals, shopping, managing finances, etc.?: No Are you currently unemployed and looking for a job?: No Are you interested in more education?: No Please select the resources that you would like help with: None Currently or been in a relationship where the following occur: No concerns reported THRIVE Score: 0 AUDIT C Alcohol Use Questionnaire (AUDIT-C) 1. How often do you have a drink containing alcohol?: Monthly or less 2. How many drinks containing alcohol do you have on a typical day when you are drinking?: 1 or 2 3. How often do you have six or more drinks on one occasion?: Never Total Score: 1 Score Reviewed/Action Taken: Yes MANJINDER-7 AMB Questionnaire MANJINDER-7 Date MANJINDER - 7 assessed: 10/24/23 Source: Developed by Drs. Kiel Gomez, Danuta Beard, Ronald Sagastume and colleagues, with an educational felipe from [employer]. Review of Systems Const Denies chills and Denies fever(s) ENT Denies epistaxis and Denies nasal discharge Card Denies chest pain Resp Denies chest congestion, Denies cough and Denies hemoptysis GI Denies diarrhea and Denies nausea Skin/Breast Denies rash Neuro Reports no additional complaints Psych Reports no additional complaints Endo Reports no additional complaints Physical exam (Primary Care) Vital Signs: Last Vital Signs Pulse 75 03/15/24 08:36 BP 148/82 H 03/15/24 08:36 Pulse Ox 98 03/15/24 08:36 Oxygen Delivery Method Room Air 03/15/24 08:36 BMI result Body Mass Index 31.6 Tobacco/Smoking Status: Tobacco use Status Tobacco use date assessed 03/15/24 03/15/24 08:41 Patient Tobacco Use Status Never used Tobacco 03/15/24 08:41 e-Cigarette/Vaping Use Never Used 03/15/24 08:41 Thrive Assessment: Date of Thrive Assessment Date Thrive assessed 10/17/23 03/15/24 08:41 Currently or been in a relationship where the following occur: No concerns reported Const General: cooperative, comfortable and no acute distress Orientation/consciousness: patient oriented x3 HENMT Head: Yes normocephalic Eyes General: appearance normal, both eyes and all related structures Neck Neck: Yes supple Resp Effort & Inspection: normal respiratory effort, no cough and no stridor Skin General skin exam: turgor normal Neuro General: patient oriented x3, tone normal and moves all extremities Extrem Shoulder/upper arm images: 2 1. Tender to pressure, range of motion intact Right lower extremity: no edema Left lower extremity: no edema Coding Level of Care Code Est Pt Level 4 (63347) Diagnoses Acute pain of right shoulder M25.511 Chronicity: acute Decreased GFR R94.4 Chronic anemia D64.9 Assessment & Plan Assessment & Plan (1) Shoulder pain, right: Code(s): M25.511 - Pain in right shoulder Category: Medical Qualifiers: Chronicity: acute Qualified Code(s): M25.511 - Pain in right shoulder (2) Decreased GFR: Code(s): R94.4 - Abnormal results of kidney function studies Category: Medical (3) Chronic anemia: Code(s): D64.9 - Anemia, unspecified Category: Medical Plan Chief Complaint The patient presents with right shoulder pain following a sudden movement due to a smoke alarm. Assessment and Plan 74-year-old male with a history of chronic anemia and deteriorating kidney function presenting with right shoulder pain. The shoulder discomfort began approximately 10 days ago after a sudden movement, with pain radiating up to the neck. The pain seems to be due to inflammation of the rotator cuff. The patient reports trying ice, heat, and topical treatments without relief. Due to the patient's kidney issues, they are unable to take ibuprofen, which complicates pain management. Labs indicate stable anemia but a noticeable decline in kidney function, prompting the need for nephrology consultation. 1. Chronic Anemia Anemia remains stable. No immediate changes in management were required during this visit. Regular monitoring of hemoglobin levels is recommended. 2. Disorder of kidney and ureter, unspecified N28.9 Worsening kidney function indicated by increased creatinine levels (1.66) and decreased GFR (41). Follow-up with a manager portable is advised for further management and evaluation. Patient advised to continue avoiding nephrotoxic medications and increase fluid intake. 3. Primary osteoarthritis, right shoulder M19.011 The shoulder pain appears related to rotator cuff inflammation. Treatment includes physical therapy to assist with mobility and reduce pain. Prescription for prednisone was provided to manage inflammation, and tramadol for nighttime pain relief. An x-ray was ordered to assess any structural damage. Diagnostic results - Labs: - Slight chronic anemia observed, but stable. - Elevated creatinine at 1.66 and decreased GFR to 41, indicating worsening kidney function. - Tests and Diagnostics: - X-ray of the right shoulder ordered. Problem List - Right Shoulder Inflammation - Chronic Anemia - Deteriorating Kidney Function Patient Instructions - Schedule and attend physical therapy sessions as recommended. - Take prednisone once daily with breakfast. - Only take tramadol at night for pain relief. Stand up slowly if dizziness occurs. - Continue to avoid ibuprofen due to kidney concerns. - Increase water intake to support kidney function. - Follow up with nephrology as scheduled at [facility]. - Get an x-ray of the right shoulder at the designated facility next to [facility]. - Collect prescribed medications from [facility]. Orders: Orders 2 XR shoulder RT min 2V Today M25.511 - Pain in right shoulder PT Evaluation and Treatment Today M25.511 - Pain in right shoulder XR shoulder RT min 2V Today M25.511 - Pain in right shoulder Referrals 2 Nephrology Referral R94.4 - Abnormal results of kidney function studies Medications: New 2 prednisone 20 mg PO DAILY 5 days 5 tabs 0RF tramadol 50 mg PO BEDTIME 7 days 7 tabs 0RF Shoulder pain
== END 2024-03-15 09:57 | disposition home or self-care (01) ==
PROVIDERS: PCP Internal Medicine; Visit Provider Internal Medicine
DX: M25.511 Pain in right shoulder (principal); R94.4 Abnormal results of kidney function studies; D64.9 Anemia, unspecified

== ENCOUNTER 2024-03-25 15:42 | Outpatient (AMB) | payer MEDICARE, SELFPAY ==
[2024-03-25 15:42] VITALS: BP 136/70; PULSE 105; O2SAT 99; BMI 31.0
--- NOTE | 2024-03-25 15:42 | HO.NEPHOV_ITS ---
Vital Signs 03/25/24 15:42 Height 5 ft 6 in Weight 192 lb BMI 31.0 BP 136/70 Blood Pressure Location Lt brachial Position Sitting Pulse 105 H Pulse Source Pulse Oximeter Pulse Oximetry (%) 99 Oxygen Delivery Method Room Air Intake Visit Reasons: INP: Abnormal results of kidney function studies Distributor Advertising Material Required: No Accompanied by: Spouse Allergies hydromorphone [From Dilaudid] Adverse Reaction (Severe, Verified 03/25/24 15:45) Agitated peanuts Allergy (Severe, Uncoded 04/19/23 07:54) anaphylaxis Medication List - Last Reconciled 03/25/24 by Darian Richards MD amlodipine 5 mg PO DAILY 90 days bisacodyl (Dulcolax (bisacodyl)) 10 mg (2 x 5 mg) PO BEDTIME docusate sodium 100 mg PO BEDTIME hydrochlorothiazide 25 mg PO QAM 90 days lisinopril 40 mg PO DAILY 90 days HPI Comments Details: Pradeep is a pleasant 74-year-old man who has been enjoying reasonably good health. He has had hypertension for almost 15 years and blood pressure has been well controlled. He has been on lisinopril 40 mg along with hydrochlorothiazide. Two years ago he was diagnosed with ulcerative colitis. He was started on mesalamine. Up until October of 2023, serum creatinine was 0.9 mg/dL. Over the last 5 months creatinine is bumped up to 1.34 and 1.66. At the time of this blood test he was taking Aleve regularly. He has stopped taking LE for the last 2 weeks. He has a history of arthritis he had knee replacement and underwent rehab. At present he is not on any NSAIDs and he takes Tylenol as needed. COUNT INCLUDES THE [facility] Medical History Tubular adenoma History of depression Osteoarthritis of right knee Pre-diabetes Hypertension, essential Surgical History History of total right knee replacement History of surgery on extremity Hx of elbow surgery Hx of hernia repair Hx of colonoscopy History of lumbar discectomy Hx of repair of rotator cuff Hx of arthroscopy of left knee Social History Household Members: Spouse Housing: House Are you a primary pet care attendant to a significant other at home: No Do you presently have visiting nurse or other home services: No Alcohol intake: current Alcohol intake frequency: holidays/special occasions only Comment: previously medicated with iv dilaudid Patient Tobacco Use Status: Never used Tobacco e-Cigarette/Vaping Use: Never Used Second Hand Smoke Exposure: No service: No Current occupational status: retired Current occupation: Left handed Cognitive needs: No Hearing needs: No Vision needs: No Review of Systems Const Denies fever(s) and Denies weight loss Card Denies chest pain Resp Denies cough and Denies hemoptysis GI Denies abdominal pain, Denies diarrhea and Denies nausea Musc Denies back pain Neuro Denies focal weakness Physical Exam Vital Signs: Last Vital Signs Pulse 105 H 03/25/24 15:42 BP 136/70 03/25/24 15:42 Pulse Ox 99 03/25/24 15:42 Oxygen Delivery Method Room Air 03/25/24 15:42 BMI result Body Mass Index 31.0 Comfortable Neck supple no JVD. Lungs entry equal no rales. Heart S1-S2 heard no gallop or rub. Abdomen soft nontender. Neuro alert awake oriented. No asterixis. Extremities no edema. Results Reviewed Nephrology Results: Hgb 13.2 g/dl (14.0-18.0) L 02/13/24 WBC 9.8 X10*3/uL (4.8-10.8) 02/13/24 Plt Count 369 X10*3/uL (160-400) 02/13/24 Sodium 138 mmol/L (135-145) 03/05/24 Potassium 4.2 mmol/L (3.3-5.1) 03/05/24 Chloride 103 mmol/L (96-108) 03/05/24 Carbon Dioxide 25 mmol/L (22-29) 03/05/24 BUN 35 mg/dL (9-16) H 03/05/24 Creatinine 1.66 mg/dL (0.5-1.4) H 03/05/24 Calcium 10.2 mg/dL (8.4-10.2) 03/05/24 Assessment & Plan Assessment & Plan (1) Hypertension, essential: Code(s): I10 - Essential (primary) hypertension Category: Medical (2) ALBERT (acute kidney injury): Code(s): N17.9 - Acute kidney failure, unspecified Category: Medical Plan Pleasant 72-year-old man with a history of longstanding hypertension and recent ulcerative colitis has sustained acute kidney injury. Acute kidney injury is most likely due to the combination of the use of lisinopril and hydrochlorothiazide along with NSAIDs. Now that he has stopped the Aleve I expect renal function to returned to baseline. I will check the renal panel today. If the serum creatinine returns to baseline then I would hold off on further workup. However the renal function does not returned to baseline then I will proceed with renal ultrasonogram along with more urine studies. I have reassured him. Encouraged him to stand low-sodium diet Increase p.o. fluid intake. Continue to avoid NSAIDs and other nephrotoxic agents. I will keep you updated with his progress. Thank you Orders: Orders Basic Metabolic Panel Today I10 - Essential (primary) hypertension, N17.9 - Acute kidney failure, unspecified UA and rflx microscopic Today N17.9 - Acute kidney failure, unspecified Total Protein Urine Random Today N17.9 - Acute kidney failure, unspecified Creatinine Urine Today N17.9 - Acute kidney failure, unspecified Sodium Urine Random 2 Weeks N17.9 - Acute kidney failure, unspecified Coding Level of Care Code New Pt Level 4 (16030) Diagnoses Hypertension, essential I10 ALBERT (acute kidney injury) N17.9
== END 2024-03-25 16:05 | disposition home or self-care (01) ==
PROVIDERS: PCP Internal Medicine; Referring Provider Internal Medicine; Visit Provider Internal Medicine Hypertension Specialist
DX: I10 Essential (primary) hypertension (principal); N17.9 Acute kidney failure, unspecified
CPT/HCPCS: 99204

== ENCOUNTER → 2024-03-25 15:42 | Outpatient (BNVA) | payer MEDICARE, SELFPAY | PROVIDERS: PCP Internal Medicine; Referring Provider Internal Medicine; Visit Provider Internal Medicine Hypertension Specialist | DX: I10 Essential (primary) hypertension (principal); N17.9 Acute kidney failure, unspecified | CPT/HCPCS: 99202 ==

== ENCOUNTER 2024-03-26 08:31 | Outpatient (REF) | payer MEDICARE, SELFPAY ==
[2024-03-26 10:12] LABS: Appearance Urine Clear; Color Urine Yellow; Glucose Urine UA Negative (Negative); Leukocyte Esterase Urine Negative (Negative); Nitrite Urine Negative (Negative); PH 5.5 (5.0-9.0); Specific Gravity - Urine 1.015 (1.005-1.025); UMIC TRIGGER UA YES; Urine Blood Large (3+) (Negative); Urine Ketones Negative (Negative); Urine Protein 30 (1+) mg/dL (Neg-Trace)
[2024-03-26 10:21] LABS: Anion Gap 15 (12-20); Blood Urea Nitrogen 28 mg/dL (9-16); Calcium 9.8 mg/dL (8.4-10.2); Carbon Dioxide 24 mmol/L (22-29); Chloride 104 mmol/L (96-108); Estimated Glomerular Filt Rate 40; Glucose Random 133 mg/dL (60-115); Potassium 3.6 mmol/L (3.3-5.1); Sodium 139 mmol/L (135-145)
[2024-03-26 10:36] LABS: Creatinine Urine 84.97 mg/dL; Total Protein Urine Random 22 mg/dL (<12)
[2024-03-26 11:56] LABS: Bacteria Urine None Seen (None Seen); Hyaline Casts Urine 0-2 /LPF (0-2); RBC Urine >20 /HPF (0-2); Squamous Epithelial Cell Urine 0-2 /HPF (0-2); WBC Urine 0-5 /HPF (0-5)
== END 2024-03-26 08:32 | disposition home or self-care (01) ==
LOC: HO.HMGCLDS 08:31
PROVIDERS: PCP Internal Medicine; Visit Provider Internal Medicine Hypertension Specialist
DX: N17.9 Acute kidney failure, unspecified (principal); I10 Essential (primary) hypertension
CPT/HCPCS: 36415; 80048; 81001; 82570; 84156

== ENCOUNTER 2024-03-29 08:22 | Outpatient (REF) | payer MEDICARE, SELFPAY ==
--- NOTE | ~2024-03-29 | US_ITS ---
EXAMINATION: US RETROPERITONEAL LIMITED (RENAL ONLY) CLINICAL INFORMATION: Essentially primary hypertension.. COMPARISON: None available. TECHNIQUE: Grayscale imaging of kidneys is performed. FINDINGS: RIGHT KIDNEY: 10.3 x 6.2 x 5.2 cm (SAG x AP x TRV). The kidney is normal in size, contour, and mildly increased echogenicity. Renal cortical thickness is normal. There is small anechoic cyst lower pole measuring 1.0 cm. No additional lesions seen. No echogenic stones or hydronephrosis. LEFT KIDNEY: 13.2 x 6.2 x 5.1 cm (SAG x AP x TRV). The kidney is normal in size, contour, and echogenicity. Renal cortical thickness is normal. No calculi or focal parenchymal lesions. No hydronephrosis. US/US renal BI IMPRESSION: Minimally smaller right kidney compared to left with mild increase cortical echogenicity. There is a small anechoic simple cyst in lower pole. Left kidney is unremarkable. Electronically signed by: Jose Vance MD 04/01/2024 01:01 PM [facility]
== END 2024-03-29 08:23 | disposition home or self-care (01) ==
LOC: HO.HMGCX 08:22
PROVIDERS: PCP Internal Medicine; Visit Provider Internal Medicine Hypertension Specialist
DX: I10 Essential (primary) hypertension (principal)
CPT/HCPCS: 76775

== ENCOUNTER → 2024-03-29 08:24 | Outpatient (BNV) | payer MEDICARE, SELFPAY | PROVIDERS: PCP Internal Medicine; Visit Provider Radiology Diagnostic Radiology | DX: N28.1 Cyst of kidney, acquired (principal) | CPT/HCPCS: 76775 ==

== ENCOUNTER 2024-03-29 10:00 | Outpatient (RCR) | payer MEDICARE, SELFPAY ==
--- NOTE | 2024-03-20 09:41 | MHC.PT.EP ---
[facility] [place] Office [place] [facility] [place] Office [address] Lawrence Mcgee [address] [phone] F: [phone] F: [phone] F: [phone] F: [phone] Physical Therapy Plan of Care Date of Evaluation: 03/20/24 Date of Surgery: n/a Diagnosis: pain in R shoulder Assessment: Patient is a 74 year old male presenting to PT with complaints of pain in his R shoulder. Pt reports onset of pain began 3 weeks ago due to reaching up to change a smoke alarm. He presents today with impairments in pain, strength, posture, clunking. Pt's current occupation is retired, with baseline physical activities including reaching, lifting, ADLs. Pt expresses terminologist goal of reducing pain, and is motivated to work towards this in PT. Clinical presentation today is most consistent with signs and sx associated with R shoulder pain and pt will benefit from skilled PT 2 week x 4 weeks to address the following problems and impairments noted upon evaluation: pain, strength, posture, clunking. These problems limit the patient with the following functional activities: reaching, lifting, ADLs. The prescribed treatment plan of care is medically necessary. Co-morbidities of HTN, hx L RC repair were identified and taken into considerations of plan of care. Pt was educated on HEP, role of PT, prognosis, POC. Frequency and Duration: The patient will be seen 2 x week x 4 weeks Short Term Goals: Pt will demonstrate improved R shoulder MMT strength by 1/3 grade in 2 weeks. Pt will demonstrate improved posture as evidence by min to no cues during sessions in 2 weeks. Lab Director Goals: Pt will demonstrate improved SPADI score by 13 points in 4 weeks for improved functional mobility. Pt will demonstrate improved ability to reach with min to no weakness felt in 4 weeks for return to PLOF. Pt will demonstrate ability to lift household items with min to no pain/weakness in 4 weeks for improved ability to feed and dress. Treatment Plan: Modalities to reduce pain, spasms and effusion. Manual therapy to restore motion and function. Therapeutic exercise to improve strength and flexibility. Neuromuscular re-education for posture and balance. Therapeutic activities to return to functional activities of daily living. Electronically signed by: Diana Pratibha, PT, DPT, ATC Please sign and return to therapist. Thank you for your referral.
--- NOTE | 2024-04-12 07:48 | MHC.PT.DC ---
[facility] [place] Office [place] Office [place] Office [address] Lawrence Mcgee 140 [facility] [phone] F: [phone] F: [phone] F: [phone] F: [phone] Physical Therapy Discharge Report Diagnosis: pain in R shoulder Date of Surgery: n/a Date of Evaluation: 03/20/24 Date of Discharge: 04/12/24 Treatments to Date: 2 Cancellations to Date: 3 No Shows to Date: 0 Discharge Status: Patient Elected to Stop Discharge Summary: Pt cancelled all remaining appointments requesting to be d/c. Electronically signed by: Diana Mckinnon PT, DPT, ATC Please sign and return to therapist. Thank you for your referral.
== END 2024-04-12 07:49 | disposition home or self-care (01) ==
LOC: HO.PTCHIC 10:00
PROVIDERS: PCP Internal Medicine; Visit Provider Internal Medicine
DX: M25.511 Pain in right shoulder (principal)
CPT/HCPCS: 97110; 97161

== ENCOUNTER 2024-04-08 07:45 | Outpatient (REF) | payer MEDICARE, SELFPAY ==
[2024-04-08 10:26] LABS: Appearance Urine Clear; Color Urine Yellow; Glucose Urine UA Negative (Negative); Leukocyte Esterase Urine Negative (Negative); Nitrite Urine Negative (Negative); UMIC TRIGGER UA YES; Urine Blood Large (3+) (Negative); Urine Ketones Negative (Negative); Urine Protein Negative (Neg-Trace)
[2024-04-08 10:32] LABS: Bacteria Urine None Seen (None Seen); Hyaline Casts Urine 0-2 /LPF (0-2); RBC Urine >20 /HPF (0-2); Squamous Epithelial Cell Urine 0-2 /HPF (0-2); WBC Urine 0-5 /HPF (0-5)
== END 2024-04-08 07:46 | disposition home or self-care (01) ==
LOC: HO.HMGCLNP 07:45
PROVIDERS: PCP Internal Medicine; Visit Provider Internal Medicine Hypertension Specialist
DX: N17.9 Acute kidney failure, unspecified (principal)
CPT/HCPCS: 81001

== ENCOUNTER 2024-04-15 13:14 | Outpatient (REF) | payer MEDICARE, SELFPAY ==
[2024-04-15 15:14] LABS: Appearance Urine Clear; Color Urine Yellow; Glucose Urine UA Negative (Negative); Leukocyte Esterase Urine Trace (Negative); Nitrite Urine Negative (Negative); PH 5.5 (5.0-9.0); Specific Gravity - Urine 1.015 (1.005-1.025); UMIC TRIGGER UA YES; Urine Blood Large (3+) (Negative); Urine Ketones Negative (Negative); Urine Protein 30 (1+) mg/dL (Neg-Trace)
[2024-04-15 15:17] LABS: Bacteria Urine None Seen (None Seen); RBC Urine >20 /HPF (0-2); Squamous Epithelial Cell Urine 0-2 /HPF (0-2); WBC Urine 0-5 /HPF (0-5)
[2024-04-15 15:17] LABS: Alanine Aminotransferase 22 U/L (0-40); Albumin Level 4.2 g/dL (3.5-5.0); Alkaline Phosphatase 70 U/L (39-117); Anion Gap 12 (12-20); Aspartate Amino Transferase 23 U/L (5-37); Bilirubin Total 0.3 mg/dL (0.0-1.0); Blood Urea Nitrogen 40 mg/dL (9-16); Calcium 9.6 mg/dL (8.4-10.2); Carbon Dioxide 26 mmol/L (22-29); Chloride 106 mmol/L (96-108); Estimated Glomerular Filt Rate 34; Glucose Random 117 mg/dL (60-115); Potassium 3.7 mmol/L (3.3-5.1); Sodium 140 mmol/L (135-145); Total Protein 8.6 g/dL (6.5-8.0)
[2024-04-16 10:49] LABS: Complement C3 140 mg/dL (82-185)
[2024-04-17 14:29] LABS: Anti Glomerular Basement Memb <1.0 AI; Myeloperoxidase Antibody <1.0 AI; Proteinase 3 PR3 Antibodies <1.0 AI
[2024-04-18 08:34] LABS: PES - Abn Protein Band 1 0.4 g/dL (NONE DETECTED); Prot Elec - Albumin 4.2 g/dL (3.8-4.8); Prot Elec - Alpha1 0.4 g/dL (0.2-0.3); Prot Elec - Alpha2 0.9 g/dL (0.5-0.9); Prot Elec - Beta 1 0.5 g/dL (0.4-0.6); Prot Elec - Beta 2 0.4 g/dL (0.2-0.5); Prot Elec - Gamma 1.9 g/dL (0.8-1.7); Prot Elec - Total Protein 8.3 g/dL (6.1-8.1)
[2024-04-18 12:54] LABS: ANA Pattern 2 Nuclear, Homogeneous; Anti Nuclear Antibody Pattern Nuclear, Speckled; Anti Nuclear Antibody Screen POSITIVE (NEGATIVE)
[2024-04-18 13:33] LABS: C-ANCA Titer 1:40 titer (<1:20); Neutrophil Cyto Ab Screen C-ANCA POS (NEGATIVE)
[2024-04-18 13:42] LABS: IgA 238 mg/dL (70-320); IgG 2133 mg/dL (600-1540); IgM 178 mg/dL (50-300)
== END 2024-04-15 13:15 | disposition home or self-care (01) ==
LOC: HO.LAB 13:14
PROVIDERS: PCP Internal Medicine; Visit Provider Internal Medicine Hypertension Specialist
DX: N17.9 Acute kidney failure, unspecified (principal); I10 Essential (primary) hypertension; R76.0 Raised antibody titer; R79.82 Elevated C-reactive protein (CRP); R79.9 Abnormal finding of blood chemistry, unspecified
CPT/HCPCS: 36415; 80053; 81001; 81003; 82784; 83520; 84165; 84300; 86021; 86036; 86037; 86038; 86039; 86160; 86334; 99212

== ENCOUNTER 2024-04-15 13:14 | Outpatient (AMB) | payer MEDICARE, SELFPAY ==
[2024-04-15 13:20] VITALS: BP 140/76; PULSE 107; O2SAT 97; BMI 30.7
--- NOTE | 2024-04-15 13:20 | HO.NEPHOV_ITS ---
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 He has had hypertension for almost 15 years and blood pressure has been well controlled. He has been on lisinopril 40 mg along with hydrochlorothiazide. Two years ago he was diagnosed with ulcerative colitis. He was started on mesalamine. Up until October of 2023, serum creatinine was 0.9 mg/dL. Over the last 5 months creatinine is bumped up to 1.34 and 1.66. At the time of this blood test he was taking Aleve regularly. He has stopped taking LE for the last 2 weeks. He has a history of arthritis he had knee replacement and underwent rehab. At present he is not on any NSAIDs and he takes Tylenol as needed. 04/15/2024. Serum creatinine stays at 1.6. He has been off mesalamine for almost 4 weeks. Urinalysis showed microhematuria. No significant proteinuria Serologies were ordered but not done yet. [facility] Medical History Tubular adenoma History of depression Osteoarthritis of right knee Pre-diabetes Hypertension, essential Surgical History History of total right knee replacement History of surgery on extremity Hx of elbow surgery Hx of hernia repair Hx of colonoscopy History of lumbar discectomy Hx of repair of rotator cuff Hx of arthroscopy of left knee Social History Household Members: Spouse Housing: House Are you a primary attending ambulatory care to a significant other at home: No Do you presently have visiting nurse or other home services: No Alcohol intake: current Alcohol intake frequency: holidays/special occasions only Comment: previously medicated with iv dilaudid Patient Tobacco Use Status: Never used Tobacco e-Cigarette/Vaping Use: Never Used Second Hand Smoke Exposure: No service: No Current occupational status: retired Current occupation: Left handed Cognitive needs: No Hearing needs: No Vision needs: No Physical Exam Vital Signs: Last Vital Signs Pulse 107 H 04/15/24 13:20 BP 140/76 H 04/15/24 13:20 Pulse Ox 97 04/15/24 13:20 Oxygen Delivery Method Room Air 04/15/24 13:20 BMI result Body Mass Index 30.7 Comfortable Neck supple no JVD. Lungs entry equal no rales. Heart S1-S2 heard no gallop or rub. Abdomen soft nontender. Neuro alert awake oriented. No asterixis. Extremities no edema. Results Reviewed Nephrology Results: Sodium 139 mmol/L (135-145) 03/26/24 Potassium 3.6 mmol/L (3.3-5.1) 03/26/24 Chloride 104 mmol/L (96-108) 03/26/24 Carbon Dioxide 24 mmol/L (22-29) 03/26/24 BUN 28 mg/dL (9-16) H 03/26/24 Creatinine 1.68 mg/dL (0.5-1.4) H 03/26/24 Calcium 9.8 mg/dL (8.4-10.2) 03/26/24 Urine Protein Negative mg/dL (Neg-Trace) 04/08/24 Urine Creatinine 84.97 mg/dL 03/26/24 Renal US 03/29/24 Assessment & Plan Assessment & Plan (1) ALBERT (acute kidney injury): Code(s): N17.9 - Acute kidney failure, unspecified Category: Medical (2) Hypertension, essential: Code(s): I10 - Essential (primary) hypertension Category: Medical Plan Pleasant 72-year-old man with a history of longstanding hypertension and recent ulcerative colitis has sustained acute kidney injury. Acute kidney injury is most likely due to the combination of the use of lisinopril and hydrochlorothiazide along with NSAIDs. Despite discontinuing the hydrochlorothiazide Aleve and mesalamine has been no improvement in the renal function yet. Serum creatinine is 1.68. He was microscopic hematuria. No significant proteinuria. I have been she had a serological workup including ANCA/MPO/PR3 , SARINA C3-C4 and immunofixation. If he has persistent elevation serum creatinine along with microhematuria I will proceed with a kidney biopsy. Orders: Orders Neutrophil Cytoplasma Ab Today N17.9 - Acute kidney failure, unspecified Myeloperoxidase Antibody Today N17.9 - Acute kidney failure, unspecified Anti Glomerular Basement Memb Today N17.9 - Acute kidney failure, unspecified Protein Electrophoresis, Serum Today N17.9 - Acute kidney failure, unspecified Comprehensive Met. Panel Today N17.9 - Acute kidney failure, unspecified SARINA Reflex Titer and Pattern Today N17.9 - Acute kidney failure, unspecified Proteinase 3 PR3 Antibodies Today N17.9 - Acute kidney failure, unspecified Complement C3 Today N17.9 - Acute kidney failure, unspecified Complement C4 Today N17.9 - Acute kidney failure, unspecified Immunofixation Pnl, Serum Today N17.9 - Acute kidney failure, unspecified Coding Level of Care Code Est Pt Level 4 (26644) Diagnoses ALBERT (acute kidney injury) N17.9 Hypertension, essential I10
== END 2024-04-15 13:49 | disposition home or self-care (01) ==
PROVIDERS: PCP Internal Medicine; Visit Provider Internal Medicine Hypertension Specialist
DX: N17.9 Acute kidney failure, unspecified (principal); I10 Essential (primary) hypertension
CPT/HCPCS: 99214

== ENCOUNTER 2024-05-13 08:30 | Day surgery (SDC) | payer MEDICARE, SELFPAY ==
[2024-05-13] VITALS (19 sets, daily range): BP systolic 97–133; BP diastolic 56–84; PULSE 58–72; RESP 12–20; TEMP 36.6–36.9; O2SAT 93–100; BMI 30.8
--- NOTE | ~2024-05-13 | CT_ITS ---
Acute kidney injury. PROCEDURES: 1. Limited preprocedure CT of the abdomen. Permanent images saved in PACS. 2. CT-guided nontargeted biopsy of the left kidney. 3. Limited postprocedure CT of the abdomen. Permanent images saved in PACS. CLINICIANS: Wayne Ann PA-C MEDICATIONS: -Versed 1.5 mg, Fentanyl 75 mcg, and lidocaine 1% 10 mL SQ -Antibiotics: None -For additional details, please see nursing flowsheet. COMPLICATIONS: None ESTIMATED BLOOD LOSS: < 5 ml CONTRAST: None SPECIMENS: 3 x 18 g cores were placed in saline MODERATE SEDATION TIME: 25 min PROCEDURE NOTE: The procedure, risks, benefits, and alternatives were carefully explained to the patient and written informed consent was obtained. The patient was placed prone on the CT table. A timeout was performed. A limited CT of the abdomen was performed to localize the left kidney and choose appropriate needle entry and trajectory. The patient was prepped and draped in usual sterile fashion. The skin and deeper soft tissues were anesthetized with lidocaine. Under CT guidance, a 17 gauge trocar needle was advanced to the left lower pole of the kidney. An 18 gauge biopsy device was inserted through the trocar needle advanced into the left kidney. A total of 3, 18 gauge cores were performed. The specimens were placed in saline. A Gelfoam slurry was then administered through the trocar needle and into left perinephric space. The needle was removed. A dry dressing was applied and secured with Tegaderm. There were no immediate complications. The patient was stable after the procedure and was transferred to the post anesthesia care unit. The procedure was done under moderate sedation with a dedicated nurse for monitoring of vital signs. CT/CT biopsy renal RT Impression: CT-guided nontargeted left renal biopsy This procedure was performed by Wayne Ann PA-C and supervised by Dr. Dumont. Electronically signed by: Puneet Dumont MD 05/14/2024 04:51 PM [facility]
[2024-05-13 09:31] LABS: MANUAL DIFF FLAG NO
[2024-05-13 09:33] LABS: Basophils Absolute Auto 0.1 X10*3/uL (0.0-0.2); Basophils Percent Auto 0.5 % (0-2); Eosinophils Absolute Auto 0.2 X10*3/uL (0.0-0.4); Eosinophils Percent Auto 1.9 % (0-4); Hematocrit 36.4 % (42.0-52.0); Hemoglobin 12.4 g/dl (14.0-18.0); Imm Gran Abs Auto 0.03 X10*3/uL (0.00-0.03); Imm Gran Pct Auto 0.3 % (0.0-0.4); Lymphocytes Absolute Auto 1.6 X10*3/uL (1.2-4.9); Lymphocytes Percent Auto 16.2 % (20-40); Mean Corpuscular HGB Conc 34.1 g/dl (31.0-36.0); Mean Corpuscular Hemoglobin 32.4 pg (27.0-33.0); Mean Platelet Volume 9.5 fL (9.4-12.4); Monocytes Absolute Auto 0.6 X10*3/uL (0.1-1.2); Monocytes Percent Auto 6.5 % (2-11); Neutrophils Absolute Auto 7.3 x10*3/uL (2.0-8.3); Neutrophils Percent Auto 74.6 % (45-73); Platelet Count 383 X10*3/uL (160-400); Red Blood Count 3.83 X10*6/uL (4.60-5.80); Red Cell Distribution Width 13.3 % (11.0-16.0); White Blood Count 9.7 X10*3/uL (4.8-10.8)
[2024-05-13 09:38] LABS: INTERNATIONAL NORM RATIO 0.9 (0.9-1.1); Prothrombin Time 10.6 SEC (10.9-12.4)
[2024-05-13 09:41] LABS: Partial Thromboplastin Time 27.8 SEC (26.0-36.8)
--- NOTE | 2024-05-13 10:38 | MHC.SHP ---
Pre-Procedural Eval Section A - 24 Hr Update-Section A only Date of Service: 05/13/24 Section B - Complete if H&P > 30 days Chief Complaint: RENAL RIGHT-ESTRELLITA Details of Present Illness: 74 y/o man with Estrellita. Relevant Family History (Specify if Yes): No Relevant Social History: None Present Medications: see Short Stay Collaborative assessment Medical History: Significant History History of Previous Operations: Relevant previous surgery/procedure and date(s) Allergies: Allergies Allergy/AdvReac Type Severity Reaction Status Date / Time hydromorphone [From Dilaudid] AdvReac Severe Agitated Verified 04/15/24 13:21 peanuts Allergy Severe anaphylaxis Uncoded 04/19/23 07:54 Review of Systems Sugical H&P ROS: Negative: Constitution, Cardiovascular and Respiratory Exam Surgical H&P Exam: Normal: Heart, Normal: Lungs, Normal: Skin and Normal: Neurological Plan 74 y/o man with ESTRELLITA and hematuria -Renal biopsy Time Spent With Patient Time: Total time managing care of this patient today ____ minutes.
[2024-05-13] MEDS: Midazolam HCl 2 MG/2 ML VIAL 1 MG IVPUSH ×2 (10:45→10:53)
[2024-05-13] MEDS: fentaNYL citrate/PF 100 MCG/2 ML VIAL 50 MCG IVPUSH (10:46)
[2024-05-13] MEDS: fentaNYL citrate/PF 100 MCG/2 ML VIAL 25 MCG IVPUSH (10:53)
== END 2024-05-13 14:30 | disposition home or self-care (01) ==
PROVIDERS: Physician Assistant Surgical; PCP Internal Medicine; Visit Provider Internal Medicine Hypertension Specialist
DX: N17.9 Acute kidney failure, unspecified (principal); R76.0 Raised antibody titer; R77.9 Abnormality of plasma protein, unspecified; I10 Essential (primary) hypertension; R73.03 Prediabetes; K51.90 Ulcerative colitis, unspecified, without complications; M17.11 Unilateral primary osteoarthritis, right knee; Z79.899 Other long term (current) drug therapy; Z88.8 Allergy status to other drugs, medicaments and biological substances; Z91.010 Allergy to peanuts; Z98.890 Other specified postprocedural states
CPT/HCPCS: 36415; 50200; 77012; 85025; 85610; 85730; 86850; 86900; 86901; 88300; 88305; 88313; 88346; 88348; 88350; 99152; 99153; J0360; J1920; J2003; J2250; J2310; J3010

== ENCOUNTER → 2024-05-13 09:41 | Outpatient (BNV) | payer MEDICARE, SELFPAY | PROVIDERS: PCP Internal Medicine; Visit Provider Physician Assistant Surgical | DX: N17.9 Acute kidney failure, unspecified (principal) | CPT/HCPCS: 50200; 77012 ==

== ENCOUNTER → 2024-06-03 10:24 | Outpatient (BNVA) | payer MEDICARE, SELFPAY | PROVIDERS: PCP Internal Medicine; Visit Provider Internal Medicine Hypertension Specialist | DX: N17.9 Acute kidney failure, unspecified (principal); I10 Essential (primary) hypertension | CPT/HCPCS: 99212 ==

== ENCOUNTER 2024-06-03 10:25 | Outpatient (AMB) | payer MEDICARE, SELFPAY ==
[2024-06-03 10:27] VITALS: BP 118/68; PULSE 92; O2SAT 97; BMI 31.0
--- NOTE | 2024-06-03 10:27 | HO.NEPHOV_ITS ---
Vital Signs 06/03/24 10:27 Height 5 ft 6 in Weight 192 lb BMI 31.0 BP 118/68 Blood Pressure Location Lt brachial Position Sitting Pulse 92 Pulse Source Pulse Oximeter Pulse Oximetry (%) 97 Oxygen Delivery Method Room Air Intake Visit Reasons: ALBERT/ Conf Assembler Product Required: No Accompanied by: Spouse Allergies hydromorphone [From Dilaudid] Adverse Reaction (Severe, Verified 06/03/24 10:29) Agitated peanuts Allergy (Severe, Uncoded 04/19/23 07:54) anaphylaxis Medication List - Last Reconciled 06/03/24 by Darian Richards MD amlodipine 5 mg PO DAILY 90 days bisacodyl (Dulcolax (bisacodyl)) 10 mg PO BEDTIME PRN docusate sodium 100 mg PO BEDTIME PRN hydrochlorothiazide 12.5 mg PO QAM lisinopril 40 mg PO DAILY 90 days HPI Comments Details: Pradeep is a pleasant 74-year-old man who has been enjoying reasonably good health. He has had hypertension for almost 15 years and blood pressure has been well controlled. He has been on lisinopril 40 mg along with hydrochlorothiazide. Two years ago he was diagnosed with ulcerative colitis. He was started on mesalamine. Up until October of 2023, serum creatinine was 0.9 mg/dL. Over the last 5 months creatinine is bumped up to 1.34 and 1.66. At the time of this blood test he was taking Aleve regularly. He has stopped taking LE for the last 2 weeks. He has a history of arthritis he had knee replacement and underwent rehab. At present he is not on any NSAIDs and he takes Tylenol as needed. 04/15/2024. Serum creatinine stays at 1.6. He has been off mesalamine for almost 4 weeks. Urinalysis showed microhematuria. No significant proteinuria Serologies were ordered but not done yet. 06/03/2024. . Serologies showed IgG monoclonal protein. C ANCA was positive. Underwent kidney biopsy [facility] Medical History Tubular adenoma History of depression Osteoarthritis of right knee Pre-diabetes Hypertension, essential Surgical History History of total right knee replacement History of surgery on extremity Hx of elbow surgery Hx of hernia repair Hx of colonoscopy History of lumbar discectomy Hx of repair of rotator cuff Hx of arthroscopy of left knee Social History Household Members: Spouse Housing: House Are you a primary inspector health care facilities to a significant other at home: No Do you presently have visiting nurse or other home services: No Alcohol intake: current Alcohol intake frequency: holidays/special occasions only Comment: previously medicated with iv dilaudid Patient Tobacco Use Status: Never used Tobacco e-Cigarette/Vaping Use: Never Used Second Hand Smoke Exposure: No service: No Current occupational status: retired Current occupation: Left handed Cognitive needs: No Hearing needs: No Vision needs: No Physical Exam Vital Signs: Last Vital Signs Pulse 92 06/03/24 10:27 BP 118/68 06/03/24 10:27 Pulse Ox 97 06/03/24 10:27 Oxygen Delivery Method Room Air 06/03/24 10:27 BMI result Body Mass Index 31.0 Comfortable Neck supple no JVD. Lungs entry equal no rales. Heart S1-S2 heard no gallop or rub. Abdomen soft nontender. Neuro alert awake oriented. No asterixis. Extremities no edema. Results Reviewed Results Reviewed: Kidney biopsy No evidence of any glomerular nephritis. There was glomerular reactivity with IgM C3 and kappa. There was acute tubular injury with focal necrosis. 19% global glomerulosclerosis with a 10-15% tubular atrophy/fibrosis. Moderate degree of vascular sclerosis Nephrology Results: Hgb 12.4 g/dl (14.0-18.0) L 05/13/24 WBC 9.7 X10*3/uL (4.8-10.8) 05/13/24 Plt Count 383 X10*3/uL (160-400) 05/13/24 Sodium 140 mmol/L (135-145) 04/15/24 Potassium 3.7 mmol/L (3.3-5.1) 04/15/24 Chloride 106 mmol/L (96-108) 04/15/24 Carbon Dioxide 26 mmol/L (22-29) 04/15/24 BUN 40 mg/dL (9-16) H 04/15/24 Creatinine 1.95 mg/dL (0.5-1.4) H 04/15/24 Calcium 9.6 mg/dL (8.4-10.2) 04/15/24 Urine Protein 30 (1+) mg/dL (Neg-Trace) H 04/15/24 Urine Creatinine 84.97 mg/dL 03/26/24 Renal US 03/29/24 Assessment & Plan Assessment & Plan (1) ALBERT (acute kidney injury): Code(s): N17.9 - Acute kidney failure, unspecified Category: Medical (2) Hypertension, essential: Code(s): I10 - Essential (primary) hypertension Category: Medical Plan Pleasant 72-year-old man with a history of longstanding hypertension and recent ulcerative colitis has sustained acute kidney injury. Acute kidney injury is most likely due to the combination of the use of lisinopril and hydrochlorothiazide along with NSAIDs. Despite discontinuing the hydrochlorothiazide Aleve and mesalamine has been no improvement in the renal function yet. Serum creatinine is 1.68. He was microscopic hematuria. No significant proteinuria. C ANCA positive. IgG monoclonal gammopathy present. Underwent kidney biopsy. No evidence of any glomerular nephritis. There was glomerular reactivity with IgM C3 and kappa. There was acute tubular injury with focal necrosis. 19% global glomerulosclerosis with a 10-15% tubular atrophy/fibrosis. Moderate degree of vascular sclerosis Blood pressure is still relatively low. Therefore I will decrease hydrochlorothiazide to 12.5 mg. Recheck labs in 1 week. Orders: Orders Parathyroid Hormone Intact 1 Week Darian Richards MD N17.9 - Acute kidney failure, unspecified Complete Blood Count no Diff 1 Week Darian Richards MD N17.9 - Acute kidney failure, unspecified Comprehensive Met. Panel 1 Week Darian Richards MD N17.9 - Acute kidney failure, unspecified Lipid Panel 1 Week Darian Richards MD N17.9 - Acute kidney failure, unspecified Total Protein Urine Random 1 Week Darian Richards MD N17.9 - Acute kidney failure, unspecified UA and rflx microscopic 1 Week Darian Richards MD N17.9 - Acute kidney failure, unspecified Creatinine Urine 1 Week Darian Richards MD N17.9 - Acute kidney failure, unspecified Hemoglobin A1c 1 Week Darian Richards MD N17.9 - Acute kidney failure, unspecified Medications: Changed From docusate sodium 100 mg PO BEDTIME 90 caps 3RF K59.00 - Constipation, unspecified To docusate sodium 100 mg PO BEDTIME PRN K59.00 - Constipation, unspecified Lilian Lee, DIRECTOR SOFTWARE DEVELOPMENT[employer] From bisacodyl (Dulcolax (bisacodyl)) 10 mg (2 x 5 mg) PO BEDTIME 180 tabs 4RF To bisacodyl (Dulcolax (bisacodyl)) 10 mg PO BEDTIME PRN Lilian Lee DIRECTOR SOFTWARE DEVELOPMENT- [employer] From hydrochlorothiazide 25 mg PO QAM 90 days 90 tabs 2RF I10 - Essential (primary) hypertension To hydrochlorothiazide 12.5 mg PO QAM I10 - Essential (primary) hypertension Trena Fitzgerald MD Coding Level of Care Code Est Pt Level 4 (79840) Diagnoses ALBERT (acute kidney injury) N17.9 Hypertension, essential I10
== END 2024-06-03 10:50 | disposition home or self-care (01) ==
PROVIDERS: PCP Internal Medicine; Visit Provider Internal Medicine Hypertension Specialist
DX: N17.9 Acute kidney failure, unspecified (principal); I10 Essential (primary) hypertension
CPT/HCPCS: 99214

== ENCOUNTER 2024-06-11 07:18 | Outpatient (REF) | payer MEDICARE, SELFPAY ==
[2024-06-11 10:28] LABS: Appearance Urine Clear; Color Urine Yellow; Glucose Urine UA Negative (Negative); Leukocyte Esterase Urine Negative (Negative); Nitrite Urine Negative (Negative); PH 5.5 (5.0-9.0); Specific Gravity - Urine 1.015 (1.005-1.025); UMIC TRIGGER UA YES; Urine Blood Large (3+) (Negative); Urine Ketones Negative (Negative); Urine Protein Trace mg/dL (Neg-Trace)
[2024-06-11 10:29] LABS: Hemoglobin 11.9 g/dl (14.0-18.0); Mean Corpuscular Hemoglobin 32.3 pg (27.0-33.0); Mean Corpuscular Volume 95.1 fL (80.0-98.0); Mean Platelet Volume 10.4 fL (9.4-12.4); Platelet Count 394 X10*3/uL (160-400); Red Blood Count 3.68 X10*6/uL (4.60-5.80); Red Cell Distribution Width 12.6 % (11.0-16.0); White Blood Count 9.1 X10*3/uL (4.8-10.8)
[2024-06-11 10:34] LABS: Bacteria Urine None Seen (None Seen); Hyaline Casts Urine 0-2 /LPF (0-2); RBC Urine >20 /HPF (0-2); Squamous Epithelial Cell Urine 0-2 /HPF (0-2); WBC Urine 0-5 /HPF (0-5)
[2024-06-11 10:41] LABS: Creatinine Urine 87.79 mg/dL; Total Protein Urine Random 18 mg/dL (<12)
[2024-06-11 10:43] LABS: Estimated Average Glucose 117 mg/dL; Hemoglobin A1c % 5.7 % (<6.0)
[2024-06-11 10:56] LABS: Alanine Aminotransferase 19 U/L (0-40); Albumin Level 3.7 g/dL (3.5-5.0); Alkaline Phosphatase 67 U/L (39-117); Anion Gap 11 (12-20); Aspartate Amino Transferase 27 U/L (5-37); Bilirubin Total 0.3 mg/dL (0.0-1.0); Blood Urea Nitrogen 45 mg/dL (9-16); Calcium 9.1 mg/dL (8.4-10.2); Carbon Dioxide 22 mmol/L (22-29); Chloride 110 mmol/L (96-108); Cholesterol 188 mg/dL (<200); Estimated Glomerular Filt Rate 32; Glucose Random 108 mg/dL (60-115); HDL Cholesterol 44 mg/dL (>40); LDL Cholesterol Calculated 125 mg/dL (<100); Potassium 4.1 mmol/L (3.3-5.1); Sodium 139 mmol/L (135-145); Total Protein 8.2 g/dL (6.5-8.0); Triglycerides 96 mg/dL (<150)
[2024-06-11 12:03] LABS: Parathyroid Hormone Intact 417.7 pg/mL (8.7-77.1)
== END 2024-06-11 07:19 | disposition home or self-care (01) ==
LOC: HO.HMGCLDS 07:18
PROVIDERS: PCP Internal Medicine; Visit Provider Internal Medicine Hypertension Specialist
DX: N17.9 Acute kidney failure, unspecified (principal); Z13.1 Encounter for screening for diabetes mellitus; Z13.6 Encounter for screening for cardiovascular disorders
CPT/HCPCS: 36415; 80053; 80061; 81001; 82570; 83036; 83970; 84156; 85027

== ENCOUNTER 2024-06-19 08:54 | Outpatient (AMB) | payer MEDICARE, SELFPAY ==
[2024-06-19 08:56] VITALS: BP 132/80; PULSE 78; TEMP 36.6; O2SAT 98; BMI 31.6
--- NOTE | 2024-06-19 08:56 | A.OFFPC_ITS ---
Vital Signs 06/19/24 08:56 Height 5 ft 6 in Weight 195 lb 8 oz BMI 31.6 BP 132/80 Blood Pressure Location Lt brachial Pulse 78 Pulse Source Pulse Oximeter Temp 97.9 F Temp Source Oral Pulse Oximetry (%) 98 Oxygen Delivery Method Room Air Intake Visit Reasons: 4 months f/up Allergies hydromorphone [From Dilaudid] Adverse Reaction (Severe, Verified 06/19/24 08:56) Agitated peanuts Allergy (Severe, Uncoded 04/19/23 07:54) anaphylaxis Medication List - Last Reconciled 06/19/24 by Trena Fitzgerald MD amlodipine 5 mg PO DAILY 90 days bisacodyl (Dulcolax (bisacodyl)) 10 mg PO BEDTIME PRN docusate sodium 100 mg PO BEDTIME PRN hydrochlorothiazide 12.5 mg PO QAM lisinopril 40 mg PO DAILY 90 days Tobacco use date assessed: 06/19/24 Last assessed Fall Risk: 06/19/24 Dental Screening Dental Screen Date: 06/19/24 Did you have a dental visit in the last 12 months?: Yes Did you have a dental problem in the last 6 months where you did not have access to dental care?: No Was dental information given to patient?: Patient has dentist HPI 4 months f/up HPI Details History - The patient is a 74-year-old male pres enting with concerns related to worsening Chronic Kidney Disease. Along with his , patient had questions that he wanted me to explained to him Even though he has seen bill adjuster - The condition is marked by a creatinin e rise to 2.08 mg/dL and a decreased GFR now at 32 mL/min, down from 60 mL/min measured in October. - patient is established with Nephrology and had a biopsy done report is not available to me but he already had discussion with the Nephrology regarding the report - The patient had a renal ultrasound whi ch indicated a slightly smaller right kidney and a cyst; both findings were assessed as non-concerning. - Mild anemia, related to CKD, is presen t with a hemoglobin level of 11.9 g/dL. - The patient reports undergoing medicat ion adjustments to manage blood pressure, with concerns resolved during the visit. Problem List - Chronic Kidney Disease (CKD) - Mild Anemia secondary to CKD - Hypertension - Prediabetes Patient Instructions - Continue monitoring blood pressure and kidney function as instructed. - Avoid use of non-prescription NSAIDs s uch as ibuprofen and naproxen. - Use acetaminophen for pain management if necessary. - Increase water intake and avoid alcoho l, juices, and sodas; focus on drinking plain water. - Regular follow-ups should be maintaine d with both the bill adjuster and primary care provider. - Continue to educate on kidney health a nd monitor for any significant changes. Review of Systems - General: No fever no chills - Neurological: No headaches no dizziness - Ear nose throat: No sore throat no hearing difficulty no ear pain - Cardiovascular: No syncope, no chest pain, no palpitations - Gastrointestinal: No nausea vomiting or diarrhea - Endocrine: No polyuria polydipsia no heat intolerance - Genitourinary: No dysuria , no blood in urine Physical Exam General: No acute distress HEENT: No acute findings Neck: Supple Respiratory system: Able to talk in full sentences, no audible wheeze cardiovascular: S1-S2 regular in rate and rhythm, blood pressure 132 Gastrointestinal: No pain Extremities: No swelling of ankles GRAIN I FARMWORKER: Alert awake oriented x3 motor sensory intact Skin: Normal turgor PFSH Medical History Tubular adenoma History of depression Osteoarthritis of right knee Pre-diabetes Hypertension, essential Surgical History History of total right knee replacement History of surgery on extremity Hx of elbow surgery Hx of hernia repair Hx of colonoscopy History of lumbar discectomy Hx of repair of rotator cuff Hx of arthroscopy of left knee Social History Household Members: Spouse Housing: House Are you a primary career development associate to a significant other at home: No Do you presently have visiting nurse or other home services: No Alcohol intake: current Alcohol intake frequency: holidays/special occasions only Comment: previously medicated with iv dilaudid Patient Tobacco Use Status: Never used Tobacco e-Cigarette/Vaping Use: Never Used Second Hand Smoke Exposure: No service: No Current occupational status: retired Current occupation: Left handed Cognitive needs: No Hearing needs: No Vision needs: No Questionnaire PHQ-9 Over the last 2 weeks, how often have you been bothered by any of the following problems? 1. Little interest or pleasure in doing things: not at all 2. Feeling down, depressed, or hopeless: not at all 3. Trouble falling or staying asleep, or sleeping too much: not at all 4. Feeling tired or having little energy: not at all 5. Poor appetite or overeating: not at all 6. Feeling bad about yourself - or that you are a failure or have let yourself or your family down: not at all 7. Trouble concentrating on things, such as reading the newspaper or watching television: not at all 8. Moving or speaking so slowly that other people could have noticed. Or the opposite - being so fidgety or restless that you have been moving around a lot more than usual: not at all 9. Thoughts that you would be better off or of hurting yourself in some way: not at all Total score: 0 Depression Screening Interpretation: Negative Depression Screening Done: Yes 90522 - PHQ-9 Billing: Yes Source: Developed by Drs. Kiel Gomez, Danuta Beard, Ronald Sagastume and colleagues, with an educational felipe from [employer]. Thrive Questionnaire Date Thrive assessed: 06/19/24 I am a: Patient What is your living situation today?: I have a steady place to live Within the past 12 months, did the food you bought not last and you didn't have the money to get more?: Never true Within the past 12 months, did you worry whether your food would run out before you got money to buy more?: Never true Do you have trouble paying for medicines?: No Do you have trouble getting transportation to medical appointments?: No Do you have trouble paying your heating and electricity bill?: No Do you have trouble taking care of your child, family member or friend?: No Do you have trouble with day-to-day activities such as bathing, preparing meals, shopping, managing finances, etc.?: No Are you currently unemployed and looking for a job?: No Are you interested in more education?: No Please select the resources that you would like help with: None Currently or been in a relationship where the following occur: No concerns reported THRIVE Score: 0 AUDIT C Alcohol Use Questionnaire (AUDIT-C) 1. How often do you have a drink containing alcohol?: Monthly or less 2. How many drinks containing alcohol do you have on a typical day when you are drinking?: 1 or 2 3. How often do you have six or more drinks on one occasion?: Never Total Score: 1 Score Reviewed/Action Taken: Yes MANJINDER-7 AMB Questionnaire MANJINDER-7 Date MANJINDER - 7 assessed: 06/19/24 Feeling nervous, anxious, or on edge: 1 = Several days Not being able to stop or control worryin = Not at all Worrying too much about different things: 0 = Not at all Trouble relaxin = Not at all Being so restless that it is hard to sit still: 0 = Not at all Becoming easily annoyed or irritable: 0 = Not at all Feeling afraid as if something awful might happen: 0 = Not at all Total MANJINDER-7 score (0-4 normal; 5-9 mild; 10-14 moderate; 15-21 severe): 1 Source: Developed by Drs. Kiel Gomez, Danuta Beard, Ronald Sagastume and colleagues, with an educational felipe from [employer]. MANJINDER-7 Assessment Billing MANJINDER-7 Assessment Tool: MANJINDER-7 Assessment 68457 Physical exam (Primary Care) Vital Signs: Last Vital Signs Temp 97.9 F 06/19/24 08:56 Pulse 78 06/19/24 08:56 BP 132/80 06/19/24 08:56 Pulse Ox 98 06/19/24 08:56 Oxygen Delivery Method Room Air 06/19/24 08:56 BMI result Body Mass Index 31.6 Tobacco/Smoking Status: Tobacco use Status Tobacco use date assessed 06/19/24 06/19/24 08:57 Patient Tobacco Use Status Never used Tobacco 06/19/24 08:57 e-Cigarette/Vaping Use Never Used 06/19/24 08:57 PHQ-9: PHQ-9 Score PHQ-9: Total score 0 06/19/24 09:30 Depression Screening Interpretation: Negative Thrive Assessment: Date of Thrive Assessment Date Thrive assessed 06/19/24 06/19/24 09:04 Currently or been in a relationship where the following occur: No concerns reported Coding Level of Care Code Est Pt Level 4 (99451) Complex EM visit Add On G2211 Diagnoses Chronic kidney disease (CKD) stage G3b/A1, moderately decreased glomerular filtration rate (GFR) between 30-44 mL/min/1.73 square meter and albuminuria creatinine ratio less than 30 mg/g N18.32 Anemia of chronic disease D63.8 Hypertension, essential I10 Class 1 obesity due to excess calories with serious comorbidity and body mass index (BMI) of 31.0 to 31.9 in adult E66.09; Z68.31 Obesity classification: adult class 1 (BMI 30 - 34.9) Serious obesity comorbidity presence: with serious comorbidity Body mass index: BMI 31.0-31.9 Pre-diabetes R73.03 Additional Codes MANJINDER-7 Assessment Billing - MANJINDER-7 Assessment Tool: MANJINDER-7 Assessment 43015 ([id number]) PHQ-9 - 19315 - PHQ-9 Billing: Yes ([id number]) Assessment & Plan Assessment & Plan (1) Chronic kidney disease (CKD) stage G3b/A1, moderately decreased glomerular filtration rate (GFR) between 30-44 mL/min/1.73 square meter and albuminuria creatinine ratio less than 30 mg/g: Code(s): N18.32 - Chronic kidney disease, stage 3b Category: Medical (2) Anemia of chronic disease: Code(s): D63.8 - Anemia in other chronic diseases classified elsewhere Category: Medical (3) Hypertension, essential: Code(s): I10 - Essential (primary) hypertension Category: Medical (4) Obesity due to excess calories: Code(s): E66.09 - Other obesity due to excess calories Category: Medical Qualifiers: Obesity classification: adult class 1 (BMI 30 - 34.9) Serious obesity comorbidity presence: with serious comorbidity Body mass index: BMI 31.0-31.9 Qualified Code(s): E66.09 - Other obesity due to excess calories; Z68.31 - Body mass index [BMI] 31.0-31.9, adult (5) Pre-diabetes: Code(s): R73.03 - Prediabetes Category: Medical Plan History - The patient is a 74-year-old male presenting with concerns related to worsening Chronic Kidney Disease. Along with his , patient had questions that he wanted me to explained to him Even though he has seen bill adjuster - The condition is marked by a creatinine rise to 2.08 mg/dL and a decreased GFR now at 32 mL/min, down from 60 mL/min measured in October. - patient is established with Nephrology and had a biopsy done report is not available to me but he already had discussion with the Nephrology regarding the report - The patient had a renal ultrasound which indicated a slightly smaller right kidney and a cyst; both findings were assessed as non-concerning. - Mild anemia, related to CKD, is present with a hemoglobin level of 11.9 g/dL. - The patient reports undergoing medication adjustments to manage blood pressure, with concerns resolved during the visit. Problem List - Chronic Kidney Disease (CKD) - Mild Anemia secondary to CKD - Hypertension - Prediabetes Patient Instructions - Continue monitoring blood pressure and kidney function as instructed. - Avoid use of non-prescription NSAIDs such as ibuprofen and naproxen. - Use acetaminophen for pain management if necessary. - Increase water intake and avoid alcohol, juices, and sodas; focus on drinking plain water. - Regular follow-ups should be maintained with both the bill adjuster and primary care provider. - Continue to educate on kidney health and monitor for any significant changes.
== END 2024-06-19 09:41 | disposition home or self-care (01) ==
LOC: HO.HMCC 08:55
PROVIDERS: PCP Internal Medicine; Visit Provider Internal Medicine
DX: N18.32 Chronic kidney disease, stage 3b (principal); D63.8 Anemia in other chronic diseases classified elsewhere; I10 Essential (primary) hypertension; E66.09 Other obesity due to excess calories; Z68.31 Body mass index [BMI] 31.0-31.9, adult; R73.03 Prediabetes

== ENCOUNTER → 2024-06-19 08:54 | Outpatient (BNVA) | payer MEDICARE, SELFPAY | PROVIDERS: PCP Internal Medicine; Visit Provider Internal Medicine | DX: I12.9 Hypertensive chronic kidney disease with stage 1 through stage 4 chronic kidney disease, or unspecified chronic kidney disease (principal); N18.32 Chronic kidney disease, stage 3b; D63.8 Anemia in other chronic diseases classified elsewhere; E66.09 Other obesity due to excess calories; Z68.31 Body mass index [BMI] 31.0-31.9, adult; R73.03 Prediabetes; Z71.3 Dietary counseling and surveillance | CPT/HCPCS: 96127; 99212 ==

== ENCOUNTER 2024-08-02 09:30 | Outpatient (REF) | payer MEDICARE, SELFPAY ==
[2024-08-02 13:34] LABS: Appearance Urine Clear; Color Urine Yellow; Glucose Urine UA Negative (Negative); Leukocyte Esterase Urine Negative (Negative); Nitrite Urine Negative (Negative); PH 5.5 (5.0-9.0); Specific Gravity - Urine 1.015 (1.005-1.025); UMIC TRIGGER UA YES; Urine Blood Large (3+) (Negative); Urine Ketones Negative (Negative); Urine Protein 30 (1+) mg/dL (Neg-Trace)
[2024-08-02 13:38] LABS: Bacteria Urine None Seen (None Seen); Hyaline Casts Urine 0-2 /LPF (0-2); RBC Urine >20 /HPF (0-2); Squamous Epithelial Cell Urine 0-2 /HPF (0-2); WBC Urine 0-5 /HPF (0-5)
[2024-08-02 13:57] LABS: Anion Gap 14 (12-20); Blood Urea Nitrogen 48 mg/dL (9-16); Calcium 10.4 mg/dL (8.4-10.2); Carbon Dioxide 24 mmol/L (22-29); Chloride 106 mmol/L (96-108); Estimated Glomerular Filt Rate 36; Glucose Random 116 mg/dL (60-115); Sodium 140 mmol/L (135-145)
[2024-08-02 14:13] LABS: ~HepC Num1 0.21 S/CO (0.00-0.79); ~Hepatitis C Antibody Nonreactive (Nonreactive)
[2024-08-07 08:07] LABS: IgA 211 mg/dL (70-320); IgG 2194 mg/dL (600-1540); IgM 146 mg/dL (50-300)
== END 2024-08-02 09:31 | disposition home or self-care (01) ==
LOC: HO.HMGCLDS 09:30
PROVIDERS: PCP Internal Medicine; Visit Provider Internal Medicine Hypertension Specialist
DX: N17.9 Acute kidney failure, unspecified (principal)
CPT/HCPCS: 36415; 80048; 81001; 82784; 86334; 86803

== ENCOUNTER 2024-08-03 08:09 | Outpatient (REF) | payer MEDICARE, SELFPAY ==
[2024-08-03 10:04] LABS: Prothrombin Time 11.3 SEC (10.9-12.4)
[2024-08-03 10:07] LABS: Partial Thromboplastin Time 28.2 SEC (26.0-36.8)
[2024-08-03 10:45] LABS: Anion Gap 18 (12-20); Blood Urea Nitrogen 45 mg/dL (9-16); Calcium 9.5 mg/dL (8.4-10.2); Carbon Dioxide 20 mmol/L (22-29); Chloride 110 mmol/L (96-108); Estimated Glomerular Filt Rate 35; Glucose Random 106 mg/dL (60-115); Potassium 3.9 mmol/L (3.3-5.1); Sodium 144 mmol/L (135-145)
[2024-08-05 21:52] LABS: Anti Glomerular Basement Memb <1.0 AI; Myeloperoxidase Antibody <1.0 AI; Proteinase 3 PR3 Antibodies <1.0 AI
[2024-08-06 16:07] LABS: Anti Nuclear Antibody Screen POSITIVE (NEGATIVE); Anti Nuclear Antibody Titer 1:40 titer
[2024-08-06 19:48] LABS: Complement C3 153 mg/dL (82-185)
[2024-08-06 21:14] LABS: PES - Abn Protein Band 1 0.4 g/dL (NONE DETECTED); Prot Elec - Albumin 3.9 g/dL (3.8-4.8); Prot Elec - Alpha1 0.4 g/dL (0.2-0.3); Prot Elec - Alpha2 0.9 g/dL (0.5-0.9); Prot Elec - Beta 1 0.5 g/dL (0.4-0.6); Prot Elec - Beta 2 0.4 g/dL (0.2-0.5); Prot Elec - Gamma 1.8 g/dL (0.8-1.7); Prot Elec - Total Protein 7.8 g/dL (6.1-8.1)
[2024-08-07 12:33] LABS: Neutrophil Cyto Ab Screen ATYP P-ANCA POS (NEGATIVE)
[2024-08-10 09:54] LABS: Cryoglobulin, Qual Negative (Negative)
== END 2024-08-03 08:10 | disposition home or self-care (01) ==
LOC: HO.LAB 08:09
PROVIDERS: PCP Internal Medicine; Visit Provider Internal Medicine Hypertension Specialist
DX: N17.9 Acute kidney failure, unspecified (principal)
CPT/HCPCS: 36415; 80048; 82595; 83520; 84165; 85610; 85730; 86021; 86036; 86037; 86038; 86039; 86160

== ENCOUNTER 2024-08-09 11:41 | Outpatient (AMB) | payer MEDICARE, SELFPAY ==
[2024-08-09 11:44] VITALS: BP 148/80; PULSE 83; O2SAT 97; BMI 30.8
--- NOTE | 2024-08-09 11:44 | HO.NEPHOV ---
Vital Signs 08/09/24 11:44 08/09/24 12:21 Height 5 ft 6 in Weight 191 lb BMI 30.8 BP 148/80 H 140/80 H Blood Pressure Location Lt brachial Lt brachial Position Sitting Sitting Pulse 83 Pulse Source Pulse Oximeter Pulse Oximetry (%) 97 Oxygen Delivery Method Room Air Intake Visit Reasons: 6 weeks fu/ Conf Resident Services Director Required: No Accompanied by: Spouse Allergies hydromorphone [From Dilaudid] Adverse Reaction (Severe, Verified 08/09/24 11:46) Agitated peanuts Allergy (Severe, Uncoded 04/19/23 07:54) anaphylaxis Medication List - Last Reconciled 08/09/24 by Darian Richards MD amlodipine 5 mg PO DAILY 90 days bisacodyl (Dulcolax (bisacodyl)) 10 mg PO BEDTIME PRN docusate sodium 100 mg PO BEDTIME PRN hydrochlorothiazide 12.5 mg (1/2 x 25 mg) PO QAM lisinopril 40 mg PO DAILY 90 days HPI Comments Details: Pradeep is a pleasant 74-year-old man who has been enjoying reasonably good health. He has had hypertension for almost 15 years and blood pressure has been well controlled. He has been on lisinopril 40 mg along with hydrochlorothiazide. Two years ago he was diagnosed with ulcerative colitis. He was started on mesalamine. Up until October of 2023, serum creatinine was 0.9 mg/dL. Over the last 5 months creatinine is bumped up to 1.34 and 1.66. At the time of this blood test he was taking Aleve regularly. He has stopped taking LE for the last 2 weeks. He has a history of arthritis he had knee replacement and underwent rehab. At present he is not on any NSAIDs and he takes Tylenol as needed. 04/15/2024. Serum creatinine stays at 1.6. He has been off mesalamine for almost 4 weeks. Urinalysis showed microhematuria. No significant proteinuria Serologies were ordered but not done yet. 06/03/2024. . Serologies showed IgG monoclonal protein. C ANCA was positive. Underwent kidney biopsy [facility] Medical History Tubular adenoma History of depression Osteoarthritis of right knee Pre-diabetes Hypertension, essential Surgical History History of total right knee replacement History of surgery on extremity Hx of elbow surgery Hx of hernia repair Hx of colonoscopy History of lumbar discectomy Hx of repair of rotator cuff Hx of arthroscopy of left knee Social History Household Members: Spouse Housing: House Are you a primary acute care assistant to a significant other at home: No Do you presently have visiting nurse or other home services: No Alcohol intake: current Alcohol intake frequency: holidays/special occasions only Comment: previously medicated with iv dilaudid Patient Tobacco Use Status: Never used Tobacco e-Cigarette/Vaping Use: Never Used Second Hand Smoke Exposure: No service: No Current occupational status: retired Current occupation: Left handed Cognitive needs: No Hearing needs: No Vision needs: No Physical Exam Vital Signs: Last Vital Signs Pulse 83 08/09/24 11:44 BP 140/80 H 08/09/24 12:21 Pulse Ox 97 08/09/24 11:44 Oxygen Delivery Method Room Air 08/09/24 11:44 BMI result Body Mass Index 30.8 Comfortable Neck supple no JVD. Lungs entry equal no rales. Heart S1-S2 heard no gallop or rub. Abdomen soft nontender. Neuro alert awake oriented. No asterixis. Extremities no edema. Results Reviewed Nephrology Results: Hgb 11.9 g/dl (14.0-18.0) L 06/11/24 WBC 9.1 X10*3/uL (4.8-10.8) 06/11/24 Plt Count 394 X10*3/uL (160-400) 06/11/24 Sodium 144 mmol/L (135-145) 08/03/24 Potassium 3.9 mmol/L (3.3-5.1) 08/03/24 Chloride 110 mmol/L (96-108) H 08/03/24 Carbon Dioxide 20 mmol/L (22-29) L 08/03/24 BUN 45 mg/dL (9-16) H 08/03/24 Creatinine 1.88 mg/dL (0.5-1.4) H 08/03/24 Calcium 9.5 mg/dL (8.4-10.2) 08/03/24 PTH Intact 417.7 pg/mL (8.7-77.1) H 06/11/24 Urine Protein 30 (1+) mg/dL (Neg-Trace) H 08/02/24 Urine Creatinine 87.79 mg/dL 06/11/24 Assessment & Plan Assessment & Plan (1) Chronic kidney disease (CKD) stage G3b/A1, moderately decreased glomerular filtration rate (GFR) between 30-44 mL/min/1.73 square meter and albuminuria creatinine ratio less than 30 mg/g: Code(s): N18.32 - Chronic kidney disease, stage 3b Category: Medical (2) Anemia of chronic disease: Code(s): D63.8 - Anemia in other chronic diseases classified elsewhere Category: Medical (3) ALBERT (acute kidney injury): Code(s): N17.9 - Acute kidney failure, unspecified Category: Medical (4) Hypertension, essential: Code(s): I10 - Essential (primary) hypertension Category: Medical Plan Pleasant 74-year-old man with a history of longstanding hypertension and recent ulcerative colitis has sustained acute kidney injury. Despite discontinuing the hydrochlorothiazide Aleve and mesalamine has been no improvement in the renal function yet. Serum creatinine is 1.68. ; now around 2.06 He was microscopic hematuria. No significant proteinuria. C ANCA positive. IgG monoclonal gammopathy present. Underwent kidney biopsy. No evidence of any glomerular nephritis. There was glomerular reactivity with IgM C3 and kappa. There was acute tubular injury with focal necrosis. 19% global glomerulosclerosis with a 10-15% tubular atrophy/fibrosis. Moderate degree of vascular sclerosis Still with persistent microhematuria Will empirically treat with Prednisone 40 mg QD for 4 weeks and reasses/Taper Anemia Possible M spike - immunofixation ordered Refer to hematology . Orders: Orders Immunofixation, Random Urine 1 Month D63.8 - Anemia in other chronic diseases classified elsewhere, N18.32 - Chronic kidney disease, stage 3b Basic Metabolic Panel 1 Month D63.8 - Anemia in other chronic diseases classified elsewhere, N18.32 - Chronic kidney disease, stage 3b Immunofixation Pnl, Serum 1 Month D63.8 - Anemia in other chronic diseases classified elsewhere, N18.32 - Chronic kidney disease, stage 3b Referrals Hematology & Oncology Referral D63.8 - Anemia in other chronic diseases classified elsewhere Medications: New prednisone 40 mg (2 x 20 mg) PO DAILY 60 tabs 1RF prednisone 40 mg (2 x 20 mg) PO DAILY 30 tabs 1RF omeprazole 20 mg PO DAILY 30 caps 1RF Coding Level of Care Code Est Pt Level 4 (36019) Diagnoses Chronic kidney disease (CKD) stage G3b/A1, moderately decreased glomerular filtration rate (GFR) between 30-44 mL/min/1.73 square meter and albuminuria creatinine ratio less than 30 mg/g N18.32 Anemia of chronic disease D63.8 ALBERT (acute kidney injury) N17.9 Hypertension, essential I10
[2024-08-09 12:21] VITALS: BP 140/80
== END 2024-08-09 12:24 | disposition home or self-care (01) ==
LOC: HO.HKA 11:41
PROVIDERS: PCP Internal Medicine; Visit Provider Internal Medicine Hypertension Specialist
DX: N18.32 Chronic kidney disease, stage 3b (principal); D63.8 Anemia in other chronic diseases classified elsewhere; N17.9 Acute kidney failure, unspecified; I10 Essential (primary) hypertension
CPT/HCPCS: 99214

== ENCOUNTER → 2024-08-09 11:41 | Outpatient (BNVA) | payer MEDICARE, SELFPAY | PROVIDERS: PCP Internal Medicine; Visit Provider Internal Medicine Hypertension Specialist | DX: I12.9 Hypertensive chronic kidney disease with stage 1 through stage 4 chronic kidney disease, or unspecified chronic kidney disease (principal); N18.32 Chronic kidney disease, stage 3b; N17.9 Acute kidney failure, unspecified; D63.1 Anemia in chronic kidney disease | CPT/HCPCS: 99212 ==

== ENCOUNTER 2024-08-31 07:58 | Outpatient (REF) | payer MEDICARE, SELFPAY ==
[2024-08-31 12:10] LABS: Anion Gap 14 (12-20); Blood Urea Nitrogen 56 mg/dL (9-16); Carbon Dioxide 21 mmol/L (22-29); Chloride 109 mmol/L (96-108); Estimated Glomerular Filt Rate 32; Glucose Random 115 mg/dL (60-115); Potassium 3.6 mmol/L (3.3-5.1); Sodium 140 mmol/L (135-145)
[2024-08-31 12:36] LABS: Appearance Urine Clear; Color Urine Yellow; Glucose Urine UA Negative (Negative); Leukocyte Esterase Urine Negative (Negative); Nitrite Urine Negative (Negative); PH 5.5 (5.0-9.0); Specific Gravity - Urine 1.015 (1.005-1.025); UMIC TRIGGER UA YES; Urine Blood Large (3+) (Negative); Urine Ketones Negative (Negative); Urine Protein Negative (Neg-Trace)
[2024-08-31 13:23] LABS: Bacteria Urine None Seen (None Seen); Hyaline Casts Urine 0-2 /LPF (0-2); Squamous Epithelial Cell Urine 0-2 /HPF (0-2); WBC Urine 0-5 /HPF (0-5)
[2024-09-03 11:44] LABS: IgA 167 mg/dL (70-320); IgG 1559 mg/dL (600-1540); IgM 165 mg/dL (50-300)
== END 2024-08-31 07:59 | disposition home or self-care (01) ==
LOC: HO.HMGCLDS 07:58
PROVIDERS: PCP Internal Medicine; Visit Provider Internal Medicine Hypertension Specialist
DX: N18.32 Chronic kidney disease, stage 3b (principal); D63.8 Anemia in other chronic diseases classified elsewhere
CPT/HCPCS: 80048; 81001; 81003; 82784; 86334; 86335

== ENCOUNTER 2024-09-06 11:43 | Outpatient (AMB) | payer MEDICARE, SELFPAY ==
[2024-09-06 11:47] VITALS: BP 132/64; PULSE 78; O2SAT 96; BMI 30.7
--- NOTE | 2024-09-06 11:47 | HO.NEPHOV ---
Vital Signs 09/06/24 11:47 Height 5 ft 6 in Weight 190 lb BMI 30.7 BP 132/64 Blood Pressure Location Rt brachial Position Sitting Pulse 78 Pulse Source Pulse Oximeter Pulse Oximetry (%) 96 Oxygen Delivery Method Room Air Intake Visit Reasons: 1 MO FU/ LVM Knurling Machine Tender Required: No Accompanied by: Spouse Allergies hydromorphone [From Dilaudid] Adverse Reaction (Severe, Verified 09/06/24 11:49) Agitated peanuts Allergy (Severe, Uncoded 04/19/23 07:54) anaphylaxis Medication List - Last Reconciled 09/06/24 by Darian Richards MD amlodipine 5 mg PO DAILY 90 days bisacodyl (Dulcolax (bisacodyl)) 10 mg PO BEDTIME PRN docusate sodium 100 mg PO BEDTIME PRN hydrochlorothiazide 12.5 mg (1/2 x 25 mg) PO QAM lisinopril 40 mg PO DAILY 90 days omeprazole 20 mg PO DAILY prednisone 30 mg PO DAILY HPI Comments Details: Pradeep is a pleasant 74-year-old man who has been enjoying reasonably good health. He has had hypertension for almost 15 years and blood pressure has been well controlled. He has been on lisinopril 40 mg along with hydrochlorothiazide. Two years ago he was diagnosed with ulcerative colitis. He was started on mesalamine. Up until October of 2023, serum creatinine was 0.9 mg/dL. Over the last 5 months creatinine is bumped up to 1.34 and 1.66. At the time of this blood test he was taking Aleve regularly. He has stopped taking LE for the last 2 weeks. He has a history of arthritis he had knee replacement and underwent rehab. At present he is not on any NSAIDs and he takes Tylenol as needed. 04/15/2024. Serum creatinine stays at 1.6. He has been off mesalamine for almost 4 weeks. Urinalysis showed microhematuria. No significant proteinuria Serologies were ordered but not done yet. 06/03/2024. . Serologies showed IgG monoclonal protein. C ANCA was positive. Underwent kidney biopsy 09/06/24: 74-year-old male presenting with management of chronic kidney disease. Significant decline in his GFR, drawing attention from his doctor in February when the figure dropped to the 30s from 43. The presence of an abnormal protein, leading to monoclonal gammopathy, poses questions, with further hematological evaluation planned. The patient's blood pressure is effectively managed. He is currently revisiting medication strategies and monitoring lab abnormalities with an emphasis on addressing renal inflammation and maintaining functional status. [facility] Medical History Tubular adenoma History of depression Osteoarthritis of right knee Pre-diabetes Hypertension, essential Surgical History History of total right knee replacement History of surgery on extremity Hx of elbow surgery Hx of hernia repair Hx of colonoscopy History of lumbar discectomy Hx of repair of rotator cuff Hx of arthroscopy of left knee Social History Household Members: Spouse Housing: House Are you a primary residential caregiver to a significant other at home: No Do you presently have visiting nurse or other home services: No Alcohol intake: current Alcohol intake frequency: holidays/special occasions only Comment: previously medicated with iv dilaudid Patient Tobacco Use Status: Never used Tobacco e-Cigarette/Vaping Use: Never Used Second Hand Smoke Exposure: No service: No Current occupational status: retired Current occupation: Left handed Cognitive needs: No Hearing needs: No Vision needs: No Physical Exam Vital Signs: Last Vital Signs Pulse 78 09/06/24 11:47 BP 132/64 09/06/24 11:47 Pulse Ox 96 09/06/24 11:47 Oxygen Delivery Method Room Air 09/06/24 11:47 BMI result Body Mass Index 30.7 Comfortable Neck supple no JVD. Lungs entry equal no rales. Heart S1-S2 heard no gallop or rub. Abdomen soft nontender. Neuro alert awake oriented. No asterixis. Extremities no edema. Results Reviewed Nephrology Results: Hgb 11.9 g/dl (14.0-18.0) L 06/11/24 WBC 9.1 X10*3/uL (4.8-10.8) 06/11/24 Plt Count 394 X10*3/uL (160-400) 06/11/24 Sodium 140 mmol/L (135-145) 08/31/24 Potassium 3.6 mmol/L (3.3-5.1) 08/31/24 Chloride 109 mmol/L (96-108) H 08/31/24 Carbon Dioxide 21 mmol/L (22-29) L 08/31/24 BUN 56 mg/dL (9-16) H 08/31/24 Creatinine 2.07 mg/dL (0.5-1.4) H 08/31/24 Calcium 9.0 mg/dL (8.4-10.2) 08/31/24 PTH Intact 417.7 pg/mL (8.7-77.1) H 06/11/24 Urine Protein Negative mg/dL (Neg-Trace) 08/31/24 Urine Creatinine 87.79 mg/dL 06/11/24 Assessment & Plan Assessment & Plan (1) Chronic kidney disease (CKD) stage G3b/A1, moderately decreased glomerular filtration rate (GFR) between 30-44 mL/min/1.73 square meter and albuminuria creatinine ratio less than 30 mg/g: Code(s): N18.32 - Chronic kidney disease, stage 3b Category: Medical (2) Anemia of chronic disease: Code(s): D63.8 - Anemia in other chronic diseases classified elsewhere Category: Medical (3) ALBERT (acute kidney injury): Code(s): N17.9 - Acute kidney failure, unspecified Category: Medical (4) Hypertension, essential: Code(s): I10 - Essential (primary) hypertension Category: Medical Plan Pleasant 74-year-old man with a history of longstanding hypertension and recent ulcerative colitis has sustained acute kidney injury. Despite discontinuing the hydrochlorothiazide Aleve and mesalamine has been no improvement in the renal function yet. Serum creatinine is 1.68. ; now around 2.06 He was microscopic hematuria. No significant proteinuria. C ANCA positive. IgG monoclonal gammopathy present. Underwent kidney biopsy. No evidence of any glomerular nephritis. There was glomerular reactivity with IgM C3 and kappa. There was acute tubular injury with focal necrosis. 19% global glomerulosclerosis with a 10-15% tubular atrophy/fibrosis. Moderate degree of vascular sclerosis Still with persistent microhematuria empirically treated with Prednisone 40 mg QD for 4 weeks and will decrease to 30 mg QD x 1 week followed by 20 mg QD x 1 week followed by 10 mg QD and reassess Anemia Possible M spike - immunofixation showed monoclonal protein Await hematology evaluation . Orders: Orders Basic Metabolic Panel 8 Weeks D63.8 - Anemia in other chronic diseases classified elsewhere, N18.32 - Chronic kidney disease, stage 3b Medications: Changed From prednisone 40 mg (2 x 20 mg) PO DAILY 60 tabs 1RF To prednisone 30 mg PO DAILY Coding Level of Care Code Est Pt Level 4 (53727) Diagnoses Chronic kidney disease (CKD) stage G3b/A1, moderately decreased glomerular filtration rate (GFR) between 30-44 mL/min/1.73 square meter and albuminuria creatinine ratio less than 30 mg/g N18.32 Anemia of chronic disease D63.8 ALBERT (acute kidney injury) N17.9 Hypertension, essential I10
== END 2024-09-06 12:06 | disposition home or self-care (01) ==
LOC: HO.HKA 11:44
PROVIDERS: PCP Internal Medicine; Visit Provider Internal Medicine Hypertension Specialist
DX: N18.32 Chronic kidney disease, stage 3b (principal); D63.8 Anemia in other chronic diseases classified elsewhere; N17.9 Acute kidney failure, unspecified; I10 Essential (primary) hypertension
CPT/HCPCS: 99214

== ENCOUNTER → 2024-09-06 11:43 | Outpatient (BNVA) | payer MEDICARE, SELFPAY | PROVIDERS: PCP Internal Medicine; Visit Provider Internal Medicine Hypertension Specialist | DX: I12.9 Hypertensive chronic kidney disease with stage 1 through stage 4 chronic kidney disease, or unspecified chronic kidney disease (principal); N18.32 Chronic kidney disease, stage 3b; N17.9 Acute kidney failure, unspecified; D63.8 Anemia in other chronic diseases classified elsewhere | CPT/HCPCS: 99212 ==

== ENCOUNTER → 2024-09-13 09:20 | Outpatient (BNV) | payer MEDICARE, SELFPAY | PROVIDERS: PCP Internal Medicine; Referring Provider Internal Medicine; Visit Provider Internal Medicine | DX: D47.2 Monoclonal gammopathy (principal) | CPT/HCPCS: 99204 ==

== ENCOUNTER 2024-09-17 07:30 | Outpatient (REF) | payer MEDICARE, SELFPAY | END 2024-09-17 07:31 | disposition home or self-care (01) | LOC: HO.HMGCLNP 07:30 | PROVIDERS: PCP Internal Medicine; Visit Provider Internal Medicine | DX: D64.9 Anemia, unspecified (principal); D63.8 Anemia in other chronic diseases classified elsewhere | CPT/HCPCS: 86335 ==

== ENCOUNTER 2024-09-27 11:06 | Day surgery (SDC) | payer MEDICARE, SELFPAY ==
[2024-09-27] VITALS (13 sets, daily range): BP systolic 111–132; BP diastolic 59–76; PULSE 58–71; RESP 10–16; TEMP 36.8–37; O2SAT 95–100; BMI 30.6
--- NOTE | ~2024-09-27 | CT_ITS ---
History: Hematologic abnormalities, question of multiple myeloma PROCEDURES: 1. Limited preprocedure CT of the pelvis. Permanent images saved in PACS. 2. 11 g bone marrow core biopsy of the left posterior iliac spine 3. 11 g bone marrow aspirate of the left posterior iliac spine CLINICIANS: Quang Monte NP Preprocedural imaging reviewed with Puneet Dumont MD MEDICATIONS: -Versed, Fentanyl , and lidocaine 1% SQ -Antibiotics: None -For additional details, please see nursing flowsheet. COMPLICATIONS: None ESTIMATED BLOOD LOSS: < 5 ml CONTRAST: None SPECIMENS: 11 g core placed in formalin. Bone marrow aspirate placed in EDTA and sodium heparin tubes MODERATE SEDATION TIME: 30 min PROCEDURE NOTE: The procedure, risks, benefits, and alternatives were carefully explained to the patient and written informed consent was obtained. The patient was placed prone on the CT table. A timeout was performed. A limited CT of the pelvis was performed to localize posterior iliac spine and choose appropriate needle entry and trajectory. The patient was prepped and draped in usual sterile fashion. The skin, subcutaneous tissues, and periosteum were anesthetized with lidocaine. Under CT guidance, an 11-gauge bone marrow biopsy needle was advanced into the posterior iliac spine, with the tip positioned slightly cephalad. An 11-gauge core biopsy of the bone marrow was performed and was placed in formalin. Next, the 11-gauge bone marrow biopsy needle was then advanced into the posterior iliac spine, under CT guidance, with the tip positioned slightly caudal. A bone marrow aspirate was performed. The specimen was placed in the provided EDTA and sodium heparin tubes. The needle was removed. A dry dressing was applied and secured with Tegaderm. There were no immediate complications. The patient was stable after the procedure and was transferred to the post anesthesia care unit. The procedure was done under moderate sedation with a dedicated nurse for monitoring of vital signs. CT/CT biopsy asp core bone marrow Impression: CT-guided bone marrow biopsy and aspirate This procedure was performed by Quang Monte NP and supervised by Puneet Dumont MD. Electronically signed by: Puneet Dumont MD 09/27/2024 03:33 PM EDT
[2024-09-27 12:17] LABS: INTERNATIONAL NORM RATIO 0.9 (0.9-1.1); Prothrombin Time 10.8 SEC (10.9-12.4)
[2024-09-27] MEDS: Midazolam HCl 2 MG/2 ML VIAL 1 MG IVPUSH (13:45)
[2024-09-27] MEDS: fentaNYL citrate/PF 100 MCG/2 ML VIAL 50 MCG IVPUSH (13:45)
[2024-09-27 14:30] LABS: Bone Marrow SEE SEPARATE REPORT
[2024-09-27] MEDS: Lidocaine HCl 1 % MPF 30 ML VIAL 10 ML SUBCUT (15:07)
== END 2024-09-27 15:20 | disposition home or self-care (01) ==
PROVIDERS: Radiology Diagnostic Radiology; PCP Internal Medicine; Visit Provider Internal Medicine
PROC: (CPT 38221; principal; 2024-09-27 13:00)
DX: C90.00 Multiple myeloma not having achieved remission (principal); I10 Essential (primary) hypertension; N28.9 Disorder of kidney and ureter, unspecified; D64.9 Anemia, unspecified; R73.03 Prediabetes; M17.11 Unilateral primary osteoarthritis, right knee; Z79.52 Long term (current) use of systemic steroids; Z79.899 Other long term (current) drug therapy; Z88.8 Allergy status to other drugs, medicaments and biological substances; Z91.010 Allergy to peanuts; Z98.890 Other specified postprocedural states; Z96.651 Presence of right artificial knee joint
CPT/HCPCS: 36415; 38222; 85610; 88184; 88185; 88237; 88264; 88280; 88305; 88311; 88313; 88342; 88344; 99152; 99153; J2003; J2250; J2310; J3010

== ENCOUNTER → 2024-09-27 13:08 | Outpatient (BNV) | payer MEDICARE, SELFPAY | PROVIDERS: PCP Internal Medicine | DX: D75.9 Disease of blood and blood-forming organs, unspecified (principal) | CPT/HCPCS: 38222; 77012; 99152 ==

== ENCOUNTER → 2024-10-16 11:10 | Day surgery (SDC) | payer MEDICARE, SELFPAY ==
[2024-10-16] VITALS (18 sets, daily range): BP systolic 96–130; BP diastolic 46–72; PULSE 55–69; RESP 14–20; TEMP 36.1–36.6; O2SAT 96–99; BMI 31.0
--- NOTE | ~2024-10-16 | CT_ITS ---
History: Abnormal proteins PROCEDURES: 1. Limited preprocedure CT of the pelvis. Permanent images saved in PACS. 2. 11 g bone marrow core biopsy of the right posterior iliac spine 3. 11 g bone marrow aspirate of the right posterior iliac spine CLINICIANS: Quang Monte NP Preprocedural imaging reviewed with Puneet Dumont MD MEDICATIONS: -Versed, Fentanyl , and lidocaine 1% SQ -Antibiotics: None -For additional details, please see nursing flowsheet. COMPLICATIONS: None ESTIMATED BLOOD LOSS: < 5 ml CONTRAST: None SPECIMENS: 11 g core placed in formalin. Bone marrow aspirate placed in EDTA and sodium heparin tubes MODERATE SEDATION TIME: 45 min PROCEDURE NOTE: The procedure, risks, benefits, and alternatives were carefully explained to the patient and written informed consent was obtained. The patient was placed prone on the CT table. A timeout was performed. A limited CT of the pelvis was performed to localize posterior iliac spine and choose appropriate needle entry and trajectory. The patient was prepped and draped in usual sterile fashion. The skin, subcutaneous tissues, and periosteum were anesthetized with lidocaine. Under CT guidance, an 11-gauge bone marrow biopsy needle was advanced into the posterior iliac spine, with the tip positioned slightly cephalad. A bone marrow aspirate was performed. The specimen was placed in the provided EDTA and sodium heparin tubes. Next, the 11-gauge bone marrow biopsy needle was then advanced into the posterior iliac spine, under CT guidance, with the tip positioned slightly caudal. An 11-gauge core biopsy of the bone marrow was performed, needle removed and the specimen was placed in formalin. A dry dressing was applied and secured with Tegaderm. There were no immediate complications. The patient was stable after the procedure and was transferred to the post anesthesia care unit. The procedure was done under moderate sedation with a dedicated nurse for monitoring of vital signs. CT/CT biopsy asp core bone marrow Impression: CT-guided bone marrow biopsy and aspirate This procedure was performed by Quang Monte NP and supervised by Puneet Dumont MD. Electronically signed by: Puneet Dumont MD 10/18/2024 02:02 PM EDT
[2024-10-16] MEDS: Lidocaine HCl 1 % MPF 30 ML VIAL 10 ML SUBCUT (14:42)
== END | disposition home or self-care (01) ==
PROVIDERS: Student in an Organized Health Care Education/Training Program; PCP Internal Medicine; Visit Provider Internal Medicine
DX: C90.00 Multiple myeloma not having achieved remission (principal); I10 Essential (primary) hypertension; N28.9 Disorder of kidney and ureter, unspecified; R73.03 Prediabetes; D64.9 Anemia, unspecified; Z79.82 Long term (current) use of aspirin; Z79.899 Other long term (current) drug therapy; Z91.010 Allergy to peanuts; Z98.890 Other specified postprocedural states; Z88.8 Allergy status to other drugs, medicaments and biological substances
CPT/HCPCS: 36415; 38222; 88184; 88185; 88237; 88264; 88280; 88305; 88311; 88312; 88313; 88342; 88344; 99152; 99153; J2003; J2250; J2312; J3010

== ENCOUNTER → 2024-10-16 13:15 | Outpatient (BNV) | payer MEDICARE, SELFPAY | PROVIDERS: PCP Internal Medicine | DX: R77.9 Abnormality of plasma protein, unspecified (principal) | CPT/HCPCS: 38222; 77012 ==

== ENCOUNTER 2024-10-24 08:37 | Outpatient (REF) | payer MEDICARE, SELFPAY ==
[2024-10-24 10:25] LABS: Reticulocytes Absolute 0.084 X10*6/uL (0.026-0.095)
[2024-10-24 11:08] LABS: Ferritin 161 ng/mL (20-250); Iron 42 mcg/dL (45-160); Percent Iron Saturation 18 % (15-50); Total Iron Binding Capacity 239 mcg/dL (228-428); Unsaturated Iron Binding 197 ug/dL
[2024-10-24 11:19] LABS: Folate 9.2 ng/mL (> or = 4.0); Vitamin B12 558 pg/mL (200-900)
== END 2024-10-24 08:38 | disposition home or self-care (01) ==
LOC: HO.HMGCLDS 08:37
PROVIDERS: PCP Internal Medicine; Visit Provider Internal Medicine
DX: D64.9 Anemia, unspecified (principal)
CPT/HCPCS: 36415; 82607; 82728; 82746; 83010; 83540; 83615; 85045

== ENCOUNTER 2024-10-29 09:21 | Outpatient (REF) | payer MEDICARE, SELFPAY ==
[2024-10-29 11:07] LABS: Anion Gap 14 (12-20); Blood Urea Nitrogen 36 mg/dL (9-16); Calcium 9.1 mg/dL (8.4-10.2); Carbon Dioxide 22 mmol/L (22-29); Chloride 109 mmol/L (96-108); Estimated Glomerular Filt Rate 30; Potassium 3.9 mmol/L (3.3-5.1); Sodium 141 mmol/L (135-145)
== END 2024-10-29 09:22 | disposition home or self-care (01) ==
LOC: HO.HMGCLDS 09:21
PROVIDERS: PCP Internal Medicine; Visit Provider Internal Medicine Hypertension Specialist
DX: N18.32 Chronic kidney disease, stage 3b (principal); D63.1 Anemia in chronic kidney disease
CPT/HCPCS: 36415; 80048

== ENCOUNTER 2024-11-05 09:26 | Outpatient (AMB) | payer MEDICARE, SELFPAY ==
--- NOTE | 2024-11-05 09:29 | HO.NEPHOV_ITS ---
Vital Signs 11/05/24 09:30 Height 5 ft 6 in Weight 192 lb BMI 31.0 BP 124/70 Blood Pressure Location Lt brachial Position Sitting Pulse 97 Pulse Source Pulse Oximeter Pulse Oximetry (%) 98 Oxygen Delivery Method Room Air Intake Visit Reasons: FU/ Conf Clinical Registered Nurse Required: No Accompanied by: Spouse Allergies hydromorphone (From Dilaudid) Adverse Reaction (Severe, Verified 11/05/24 09:32) Agitated peanuts Allergy (Severe, Uncoded 04/19/23 07:54) anaphylaxis Medication List - Last Reconciled 11/05/24 by Darian Richards MD amlodipine 5 mg PO DAILY 90 days bisacodyl (Dulcolax (bisacodyl)) 10 mg PO BEDTIME PRN hydrochlorothiazide 12.5 mg (1/2 x 25 mg) PO QAM lisinopril 40 mg PO DAILY 90 days omeprazole 20 mg PO DAILY HPI Comments Details: Pradeep is a pleasant 74-year-old man who has been enjoying reasonably good health. He has had hypertension for almost 15 years and blood pressure has been well controlled. He has been on lisinopril 40 mg along with hydrochlorothiazide. Two years ago he was diagnosed with ulcerative colitis. He was started on mesalamine. Up until October of 2023, serum creatinine was 0.9 mg/dL. Over the last 5 months creatinine is bumped up to 1.34 and 1.66. At the time of this blood test he was taking Aleve regularly. He has stopped taking LE for the last 2 weeks. He has a history of arthritis he had knee replacement and underwent rehab. At present he is not on any NSAIDs and he takes Tylenol as needed. 04/15/2024. Serum creatinine stays at 1.6. He has been off mesalamine for almost 4 weeks. Urinalysis showed microhematuria. No significant proteinuria Serologies were ordered but not done yet. 06/03/2024. . Serologies showed IgG monoclonal protein. C ANCA was positive. Underwent kidney biopsy 09/06/24: 74-year-old male presenting with management of chronic kidney disease. Significant decline in his GFR, drawing attention from his doctor in February when the figure dropped to the 30s from 43. The presence of an abnormal protein, leading to monoclonal gammopathy, poses questions, with further hematological evaluation planned. The patient's blood pressure is effectively managed. He is currently revisiting medication strategies and monitoring lab abnormalities with an emphasis on addressing renal inflammation and maintaining functional status. 11/05/24 The patient is a 74-year-old male presenting for follow-up on chronic kidney disease and anemia management. The patient's anemia was noted with a hemoglobin level of 10.5, which has decreased from 13.5 in Feb 2024 There is no reported blood loss, and previous tests for multiple myeloma and prostate cancer were negative. Iron levels were borderline low at 42, and B12 and folate levels were normal. The patient has a history of chronic kidney disease, with a creatinine level of 2.19 and a low GFR. The kidney damage is attributed to scarring, with no active disease currently identified. The patient experiences nocturia and fatigue, which are consistent with decreased kidney function. The patient has a history of diverticulosis, previously managed with mesalamine, and recent colonoscopy showed improvement with only one small polyp noted. Hypertension is being managed with lisinopril, hydrochlorothiazide, and amlodipine, with noted peripheral edema possibly related to amlodipine use. The patient reports frequent urination and swelling in the right foot, which is larger than the left and worsens by the end of the day. [facility] Medical History Tubular adenoma History of depression Osteoarthritis of right knee Pre-diabetes Hypertension, essential Surgical History History of total right knee replacement History of surgery on extremity Hx of elbow surgery Hx of hernia repair Hx of colonoscopy History of lumbar discectomy Hx of repair of rotator cuff Hx of arthroscopy of left knee Social History Household Members: Spouse Housing: House Are you a primary child care lead teacher to a significant other at home: No Do you presently have visiting nurse or other home services: No Alcohol intake: current Alcohol intake frequency: holidays/special occasions only Patient Tobacco Use Status: Never used Tobacco e-Cigarette/Vaping Use: Never Used Second Hand Smoke Exposure: No service: No Current occupational status: retired Current occupation: Left handed Cognitive needs: No Hearing needs: No Vision needs: No Physical Exam Vital Signs: Last Vital Signs Pulse 97 11/05/24 09:30 BP 124/70 11/05/24 09:30 Pulse Ox 98 11/05/24 09:30 Oxygen Delivery Method Room Air 11/05/24 09:30 BMI result Body Mass Index 31.0 Comfortable Neck supple no JVD. Lungs entry equal no rales. Heart S1-S2 heard no gallop or rub. Abdomen soft nontender. Neuro alert awake oriented. No asterixis. Extremities no edema. Results Reviewed Results Reviewed: Kidney biopsy No evidence of any glomerular nephritis. There was glomerular reactivity with IgM C3 and kappa. There was acute tubular injury with focal necrosis. 19% global glomerulosclerosis with a 10-15% tubular atrophy/fibrosis. Moderate degree of vascular sclerosis Nephrology Results: Hgb, (14.0-18.0) 10.5 g/dl L 10/23/24 WBC, (4.8-10.8) 9.5 X10*3/uL 10/23/24 Plt Count, (160-400) 427 X10*3/uL H Δ 10/23/24 Sodium, (135-145) 141 mmol/L 10/29/24 Potassium, (3.3-5.1) 3.9 mmol/L 10/29/24 Chloride, (96-108) 109 mmol/L H 10/29/24 Carbon Dioxide, (22-29) 22 mmol/L 10/29/24 BUN, (9-16) 36 mg/dL H 10/29/24 Creatinine, (0.5-1.4) 2.19 mg/dL H 10/29/24 Calcium, (8.4-10.2) 9.1 mg/dL 10/29/24 Urine Protein, (Neg-Trace) Negative mg/dL 08/31/24 Renal US 03/29/24 Assessment & Plan Assessment & Plan (1) Chronic kidney disease (CKD) stage G3b/A1, moderately decreased glomerular filtration rate (GFR) between 30-44 mL/min/1.73 square meter and albuminuria creatinine ratio less than 30 mg/g: Code(s): N18.32 - Chronic kidney disease, stage 3b Category: Medical (2) Anemia of chronic disease: Code(s): D63.8 - Anemia in other chronic diseases classified elsewhere Category: Medical (3) Hypertension, essential: Code(s): I10 - Essential (primary) hypertension Category: Medical Plan Pleasant 74-year-old man with a history of longstanding hypertension and recent ulcerative colitis has sustained acute kidney injury. Despite discontinuing the hydrochlorothiazide Aleve and mesalamine has been no improvement in the renal function yet. Serum creatinine is 1.68. ; now around 2.16 He was microscopic hematuria. No significant proteinuria. C ANCA positive. IgG monoclonal gammopathy present. Underwent kidney biopsy. No evidence of acute glomerular nephritis. There was glomerular reactivity with IgM C3 and kappa. There was acute tubular injury with focal necrosis. Immune complex mediated injury. 19% global glomerulosclerosis with a 10-15% tubular atrophy/fibrosis. Moderate degree of vascular sclerosis Still with persistent microhematuria empirically treated with Prednisone 40 mg QD for 4 weeks and will decrease to 30 mg QD x 1 week followed by 20 mg QD x 1 week followed by 10 mg QD and discontinued Anemia M spike - immunofixation showed monoclonal protein. s/p hematology evaluation s/p Biopsy No MM May need Epogen if HCT drops < 30 % . Orders: Orders Complete Blood Count no Diff 3 Months N18.32 - Chronic kidney disease, stage 3b Basic Metabolic Panel 3 Months N18.32 - Chronic kidney disease, stage 3b Medications: New ferrous sulfate 324 mg PO DAILY 90 tabs 1RF Coding Level of Care Code Est Pt Level 4 (90300) Diagnoses Chronic kidney disease (CKD) stage G3b/A1, moderately decreased glomerular filtration rate (GFR) between 30-44 mL/min/1.73 square meter and albuminuria creatinine ratio less than 30 mg/g N18.32 Anemia of chronic disease D63.8 Hypertension, essential I10
[2024-11-05 09:30] VITALS: BP 124/70; PULSE 97; O2SAT 98; BMI 31.0
== END 2024-11-05 09:59 | disposition home or self-care (01) ==
LOC: HO.HKA 09:27
PROVIDERS: PCP Internal Medicine; Visit Provider Internal Medicine Hypertension Specialist
DX: N18.32 Chronic kidney disease, stage 3b (principal); D63.8 Anemia in other chronic diseases classified elsewhere; I10 Essential (primary) hypertension
CPT/HCPCS: 99214

== ENCOUNTER → 2024-11-05 09:26 | Outpatient (BNVA) | payer MEDICARE, SELFPAY | PROVIDERS: PCP Internal Medicine; Visit Provider Internal Medicine Hypertension Specialist | DX: I12.9 Hypertensive chronic kidney disease with stage 1 through stage 4 chronic kidney disease, or unspecified chronic kidney disease (principal); N18.32 Chronic kidney disease, stage 3b; D63.8 Anemia in other chronic diseases classified elsewhere | CPT/HCPCS: 99212 ==

== ENCOUNTER 2024-11-09 13:45 | Outpatient (REF) | payer MEDICARE, SELFPAY | END 2024-11-09 13:46 | disposition home or self-care (01) | LOC: HO.LNP 13:45 | PROVIDERS: Visit Provider Internal Medicine Hypertension Specialist | DX: D64.9 Anemia, unspecified (principal) | CPT/HCPCS: 82270 ==

== ENCOUNTER 2024-11-12 12:16 | Outpatient (AMB) | payer MEDICARE, SELFPAY ==
--- NOTE | 2024-11-12 12:22 | A.OFFPC_ITS ---
Vital Signs 11/12/24 12:23 Height 5 ft 6 in Weight 190 lb BMI 30.7 BP 120/74 Blood Pressure Location Lt brachial Position Sitting Pulse 76 Pulse Source Pulse Oximeter Temp 98.0 F Temp Source Oral Pulse Oximetry (%) 98 Oxygen Delivery Method Room Air Intake Visit Reasons: Annual PE - see comments Allergies hydromorphone (From Dilaudid) Adverse Reaction (Severe, Verified 11/12/24 12:24) Agitated peanuts Allergy (Severe, Uncoded 04/19/23 07:54) anaphylaxis Medication List - Last Reconciled 11/12/24 by Trena Fitzgerald MD amlodipine 5 mg PO DAILY 90 days bisacodyl (Dulcolax (bisacodyl)) 10 mg PO BEDTIME PRN ferrous sulfate 324 mg PO DAILY hydrochlorothiazide 12.5 mg (1/2 x 25 mg) PO QAM lisinopril 40 mg PO DAILY 90 days omeprazole 20 mg PO DAILY Tobacco use date assessed: 06/19/24 Fall risk assessment: No Falls in past year Last assessed Fall Risk: 11/12/24 Dental Screening Dental Screen Date: 06/19/24 HPI Annual PE - see comments HPI Details Chief Complaint Physical exam appointment History The patient is a 74-year-old male presenting with kidney disease, anemia, and gastrointestinal issues. Kidney Disease: - Initiated with diagnostic concern note d in the previous year's evaluation, leading to further testing and nephrology referral. - Diagnosis of stage 3 kidney disease co nfirmed in May with kidney biopsy showing glomerular activity with IgM, C3, and kappa, and mild chronic changes. - Kidney specialist monitoring, stable o n current antihypertensive regimen. Anemia: - Hemoglobin noted to be decreasing sinc e October 23, associated with chronic kidney disease. - Patient started on oral iron supplemen tation one week prior to the visit. - Iron studies revealed normal ferritin and vitamin B12 - Past bone marrow biopsy twice to evalu ate for conditions like multiple myeloma, though shown negative. Gastrointestinal Issues: - History of ulcerative colitis with no current symptoms but stable on mesalamine previously. - History of mild chronic colitis and di verticulosis - Colonoscopy reported mild colitis, int ernal hemorrhoids, and one colon polyp in January of last year; surveillance colonoscopy planned for January. This year Medical History: - Stage 3 chronic kidney disease - Mild chronic colitis - Ulcerative colitis - Iron deficiency anemia - Diverticulosis - Internal hemorrhoids - Hypertension - Gastric reflux disease - Past suspicion of multiple myeloma (ru led out) Surgical History: - Second bone marrow biopsy (unknown татьяна e) - Past colonoscopy (January) - Kidney biopsy (May) Medications: - Amlodipine for hypertension - Lisinopril for hypertension - Hydrochlorothiazide for hypertension - Omeprazole for acid reflux - Prednisone for immune management relat ed to kidney disease (intermittent use) - Iron supplements for anemia Family History: - Father of two children Problem List - Chronic Kidney Disease, Stage 3 - Iron Deficiency Anemia - Ulcerative Colitis - Hypertension - Gastroesophageal Reflux Disease - Internal Hemorrhoids - History of Diverticulosis [place] of Care - Consulted with components engineer Dr. Lai figueroa and medical field representative [facility]. Patient Instructions - Continue current medication regimen as advised. - Follow up with nephrology and schedule next evaluations as outlined. - Conduct colonoscopy in January for gas trointestinal surveillance. - Maintain iron supplementation regimen, report any side effects like constipation to healthcare providers. - Return for the next annual check-up, o r earlier if symptoms worsen. Review of Systems General: No fever no chills neurological: No headaches no dizziness ear nose throat: No sore throat no hearing difficulty no ear pain cardiovascular: No syncope, no chest pain, no palpitations gastrointestinal: No nausea vomiting or diarrhea endocrine: No polyuria polydipsia no heat intolerance genitourinary: No dysuria skin: No new complaints Physical Exam general: No acute distress HEENT: No acute findings neck: Supple respiratory system: Lungs are clear, able to talk in full sentences, no audible wheeze, no stridor cardiovascular: S1-S2 RRR, heart is fine gastrointestinal: No pain extremities: No swelling, no new findings PERSONAL FITNESS MANAGER: Alert, awake, oriented x3, motor sensory intact Romberg's negative tandem pass skin: Normal turgor PFSH Medical History Tubular adenoma History of depression Osteoarthritis of right knee Pre-diabetes Hypertension, essential Surgical History History of total right knee replacement History of surgery on extremity Hx of elbow surgery Hx of hernia repair Hx of colonoscopy History of lumbar discectomy Hx of repair of rotator cuff Hx of arthroscopy of left knee Social History Household Members: Spouse Housing: House Are you a primary home care nurse to a significant other at home: No Do you presently have visiting nurse or other home services: No Alcohol intake: current Alcohol intake frequency: holidays/special occasions only Patient Tobacco Use Status: Never used Tobacco e-Cigarette/Vaping Use: Never Used Second Hand Smoke Exposure: No service: No Current occupational status: retired Current occupation: Left handed Cognitive needs: No Hearing needs: No Vision needs: No Questionnaire Thrive Questionnaire Date Thrive assessed: 06/12/24 I am a: Patient What is your living situation today?: I have a steady place to live Within the past 12 months, did the food you bought not last and you didn't have the money to get more?: Never true Within the past 12 months, did you worry whether your food would run out before you got money to buy more?: Never true Do you have trouble paying for medicines?: No Do you have trouble getting transportation to medical appointments?: No Do you have trouble paying your heating and electricity bill?: No Do you have trouble taking care of your child, family member or friend?: No Do you have trouble with day-to-day activities such as bathing, preparing meals, shopping, managing finances, etc.?: No Are you currently unemployed and looking for a job?: No Are you interested in more education?: No Please select the resources that you would like help with: None Currently or been in a relationship where the following occur: No concerns reported THRIVE Score: 0 MANJINDER-7 AMB Questionnaire MANJINDER-7 Date MANJINDER - 7 assessed: 06/19/24 Source: Developed by Drs. Kiel Gomez, Danuta Beard, Ronald Sagastume and colleagues, with an educational felipe from [employer]. Physical exam (Primary Care) Vital Signs: Last Vital Signs Temp 98.0 F 11/12/24 12:23 Pulse 76 11/12/24 12:23 BP 120/74 11/12/24 12:23 Pulse Ox 98 11/12/24 12:23 Oxygen Delivery Method Room Air 11/12/24 12:23 BMI result Body Mass Index 30.7 Tobacco/Smoking Status: Tobacco use Status Tobacco use date assessed 06/19/24 11/12/24 12:22 Patient Tobacco Use Status Never used Tobacco 11/12/24 12:22 e-Cigarette/Vaping Use Never Used 11/12/24 12:22 Thrive Assessment: Date of Thrive Assessment Date Thrive assessed 06/12/24 11/12/24 12:22 Currently or been in a relationship where the following occur: No concerns reported Coding Level of Care Code Est Pt Level 3 (94966) Est Pt Prev Care >65y(67183) Diagnoses Encounter for general adult medical examination with abnormal findings Z00.01 Anemia of chronic disease D63.8 Chronic kidney disease (CKD) stage G3b/A1, moderately decreased glomerular filtration rate (GFR) between 30-44 mL/min/1.73 square meter and albuminuria creatinine ratio less than 30 mg/g N18.32 Inflammatory bowel disease K52.9 Class 1 obesity due to excess calories with serious comorbidity and body mass index (BMI) of 31.0 to 31.9 in adult E66.09; Z68.31 Obesity classification: adult class 1 (BMI 30 - 34.9) Serious obesity comorbidity presence: with serious comorbidity Body mass index: BMI 31.0-31.9 Hypertension, essential I10 Assessment & Plan Assessment & Plan (1) Encounter for general adult medical examination with abnormal findings: Code(s): Z00.01 - Encounter for general adult medical examination with abnormal findings Category: Medical (2) Anemia of chronic disease: Code(s): D63.8 - Anemia in other chronic diseases classified elsewhere Category: Medical (3) Chronic kidney disease (CKD) stage G3b/A1, moderately decreased glomerular filtration rate (GFR) between 30-44 mL/min/1.73 square meter and albuminuria creatinine ratio less than 30 mg/g: Code(s): N18.32 - Chronic kidney disease, stage 3b Category: Medical (4) Inflammatory bowel disease: Code(s): K52.9 - Noninfective gastroenteritis and colitis, unspecified Category: Medical (5) Obesity due to excess calories: Code(s): E66.09 - Other obesity due to excess calories Category: Medical Qualifiers: Obesity classification: adult class 1 (BMI 30 - 34.9) Serious obesity comorbidity presence: with serious comorbidity Body mass index: BMI 31.0-31.9 Qualified Code(s): E66.09 - Other obesity due to excess calories; Z68.31 - Body mass index [BMI] 31.0-31.9, adult (6) Hypertension, essential: Code(s): I10 - Essential (primary) hypertension Category: Medical Plan Chief Complaint Physical exam appointment History The patient is a 74-year-old male presenting with kidney disease, anemia, and g astrointestinal issues. Kidney Disease: - Initiated with diagnostic concern noted in the previous year's evaluation, leading to further testing and nephrology referral. - Diagnosis of stage 3 kidney disease confirmed in May with kidney biopsy showing glomerular activity with IgM, C3, and kappa, and mild chronic changes. - Kidney specialist monitoring, stable on current antihypertensive regimen. Anemia: - Hemoglobin noted to be decreasing since October 23, associated with chronic kidney disease. - Patient started on oral iron supplementation one week prior to the visit. - Iron studies revealed normal ferritin and vitamin B12 - Past bone marrow biopsy twice to evaluate for conditions like multiple myeloma, though shown negative. Gastrointestinal Issues: - History of ulcerative colitis with no current symptoms but stable on mesalamine previously. - History of mild chronic colitis and diverticulosis - Colonoscopy reported mild colitis, internal hemorrhoids, and one colon polyp in January of last year; surveillance colonoscopy planned for January. This year Medical History: - Stage 3 chronic kidney disease - Mild chronic colitis - Ulcerative colitis - Iron deficiency anemia - Diverticulosis - Internal hemorrhoids - Hypertension - Gastric reflux disease - Past suspicion of multiple myeloma (ruled out) Surgical History: - Second bone marrow biopsy (unknown date) - Past colonoscopy (January) - Kidney biopsy (May) Medications: - Amlodipine for hypertension - Lisinopril for hypertension - Hydrochlorothiazide for hypertension - Omeprazole for acid reflux - Prednisone for immune management related to kidney disease (intermittent use) - Iron supplements for anemia Family History: - Father of two children Problem List - Chronic Kidney Disease, Stage 3 - Iron Deficiency Anemia - Ulcerative Colitis - Hypertension - Gastroesophageal Reflux Disease - Internal Hemorrhoids - History of Diverticulosis [place] [facility] Care - Consulted with components engineer Dr. Richards and medical field representative [facility]. Patient Instructions - Continue current medication regimen as advised. - Follow up with nephrology and schedule next evaluations as outlined. - Conduct colonoscopy in January for gastrointestinal surveillance. - Maintain iron supplementation regimen, report any side effects like constipation to healthcare providers. - Return for the next annual check-up, or earlier if symptoms worsen. No medication from PCP office Return in 1 year for physical exam
[2024-11-12 12:23] VITALS: BP 120/74; PULSE 76; TEMP 36.7; O2SAT 98; BMI 30.7
== END 2024-11-12 12:57 | disposition home or self-care (01) ==
LOC: HO.HMCC 12:17
PROVIDERS: PCP Internal Medicine; Visit Provider Internal Medicine
DX: Z00.00 Encounter for general adult medical examination without abnormal findings (principal); I12.9 Hypertensive chronic kidney disease with stage 1 through stage 4 chronic kidney disease, or unspecified chronic kidney disease; N18.32 Chronic kidney disease, stage 3b; D63.8 Anemia in other chronic diseases classified elsewhere; K52.9 Noninfective gastroenteritis and colitis, unspecified; E66.09 Other obesity due to excess calories; Z68.31 Body mass index [BMI] 31.0-31.9, adult

== ENCOUNTER → 2024-11-12 12:16 | Outpatient (BNVA) | payer MEDICARE, SELFPAY | PROVIDERS: PCP Internal Medicine; Visit Provider Internal Medicine | DX: Z00.01 Encounter for general adult medical examination with abnormal findings (principal); I12.9 Hypertensive chronic kidney disease with stage 1 through stage 4 chronic kidney disease, or unspecified chronic kidney disease; N18.32 Chronic kidney disease, stage 3b; D63.8 Anemia in other chronic diseases classified elsewhere; K52.9 Noninfective gastroenteritis and colitis, unspecified | CPT/HCPCS: 99397 ==

== ENCOUNTER 2024-11-18 11:13 | Outpatient (REF) | payer MEDICARE, SELFPAY ==
[2024-11-18 11:21] LABS: OBS Date 1 08/15/25; OBS Date 2 08/16/25; OBS Date 3 08/17/25; OBS Int Ctl Valid YES; OBS Lot 50142; OBS1 NEGATIVE (NEGATIVE); OBS2 NEGATIVE (NEGATIVE); OBS3 NEGATIVE (NEGATIVE)
== END 2024-11-18 11:14 | disposition home or self-care (01) ==
LOC: HO.LNP 11:13
PROVIDERS: Visit Provider Internal Medicine Hypertension Specialist
DX: Z12.11 Encounter for screening for malignant neoplasm of colon (principal); Z12.12 Encounter for screening for malignant neoplasm of rectum
CPT/HCPCS: 82270

== ENCOUNTER 2024-11-25 09:15 | Outpatient (REF) | payer MEDICARE, SELFPAY ==
[2024-11-25 10:58] LABS: MANUAL DIFF FLAG NO
[2024-11-25 11:31] LABS: Hematocrit 31.2 % (42.0-52.0); Hemoglobin 10.6 g/dl (14.0-18.0); Imm Gran Abs Auto 0.05 X10*3/uL (0.00-0.03); Imm Gran Pct Auto 0.5 % (0.0-0.4); Lymphocytes Absolute Auto 1.6 X10*3/uL (1.2-4.9); Mean Corpuscular HGB Conc 34.0 g/dl (31.0-36.0); Mean Corpuscular Hemoglobin 32.2 pg (27.0-33.0); Mean Corpuscular Volume 94.8 fL (80.0-98.0); NRBC Abs Auto 0.000 X10*3/uL (0.0-0.012); NRBC Pct Auto 0.0 /100WBC (0.0-0.2); Platelet Count 413 X10*3/uL (160-400); Red Blood Count 3.29 X10*6/uL (4.60-5.80); White Blood Count 10.4 X10*3/uL (4.8-10.8)
[2024-11-25 12:15] LABS: Alanine Aminotransferase 13 U/L (0-40); Albumin Level 3.9 g/dL (3.5-5.0); Alkaline Phosphatase 74 U/L (39-117); Anion Gap 12 (12-20); Aspartate Amino Transferase 22 U/L (5-37); Blood Urea Nitrogen 38 mg/dL (9-16); Calcium 9.2 mg/dL (8.4-10.2); Carbon Dioxide 23 mmol/L (22-29); Chloride 108 mmol/L (96-108); Estimated Glomerular Filt Rate 34; Potassium 4.0 mmol/L (3.3-5.1); Sodium 139 mmol/L (135-145); Total Protein 7.6 g/dL (6.5-8.0)
== END 2024-11-25 09:16 | disposition home or self-care (01) ==
LOC: HO.HMGCLDS 09:15
PROVIDERS: PCP Internal Medicine; Visit Provider Internal Medicine
DX: D64.9 Anemia, unspecified (principal)
CPT/HCPCS: 36415; 80053; 82525; 82668; 83615; 85025

== ENCOUNTER 2025-01-20 07:45 | Outpatient (AMB) | payer MEDICARE, SELFPAY ==
--- OUTSIDE RECORDS SUMMARY | 2025-01-20 07:49 | XMS_ITS ---
Author Organization Unknown ENCOUNTERS Encounter Performer Location Date Diagnosis Diagnosis Status Outpatient [facility] [address] [place] [address] [id number] [place] Outpatient [facility] [address] [place] [address] [id number] [facility] Pre Admit [facility] [address] [place] [address] [id number] Outpatient [facility] [address] [place] [address] [id number] AG[facility] Pre Admit [facility] [address] [place] [address] [id number] Outpatient [facility] [address] [place] [address] [id number] AG[facility] Pre Admit [facility] [address] [place] [address] [id number] Outpatient [facility] [address] [place] [address] [id number] [place] Pre Admit [facility] [address] [place] [address] [id number] Outpatient [facility] [address] [place] [address] [id number] [place] *Note: Encounters from your own facility or health system may be excluded. Allergies, Adverse Reactions, Alerts Allergen Type Severity Identification Date hydromorphone drug allergy 4 [id number] Medications Name Date Quantity Days Supplied GPI Number
--- NOTE | 2025-01-20 08:04 | MHC.OFFVIS ---
Vital Signs 01/20/25 08:08 Height 5 ft 6 in Weight 190 lb BMI 30.7 BP 130/62 Blood Pressure Location Rt brachial Position Sitting Pulse 70 Pulse Source Pulse Oximeter Pulse Oximetry (%) 96 Oxygen Delivery Method Room Air Intake Visit Reasons: 1 yr follow up Intake Note: Est pt for mgmt of colitis hx + rectal bleeding. CC; C.O. constipation and abd discomfort, multiple episodes over the last few months. Most recent episode within the last two weeks. Pt also wishes to discuss CKD new dx and concerns pertaining to iron supp. 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 Patient reports that he is feeling well. Denies any GI concerning symptoms. Continue taking Dulcolax and Citrucel may take probiotics. Colonoscopy in 1-2 years, sooner if clinically necessary. Patient is agreeable to this plan and verbalizes understanding of instructions. He was given the opportunity to ask questions and all questions answered. ? Thank you for allowing me to participate in his care New bisacodyl (Dulcolax (bisacodyl)) 10 mg (2 x 5 mg) PO BEDTIME 180 tabs 4RF methylcellulose (laxative) (Citrucel) 500 mg PO DAILY 30 tabs 2RF K59.00 Changed Changed From mesalamine ER 0.375 grams PO QID 360 caps 0RF Changed To mesalamine ER 1.5 grams (4 x 0.375 gram) PO QAM 90 days 360 caps 3RF TODAY'S VISIT Patient is here today for follow-up and to discuss going for colonoscopy. Patient reports that in the past year specially in the past few months he was told that his kidney function went down. Patient has seen kidney specialist. Unsure the reason why. Patient reports that he stopped taking mesalamine as he thought that mesalamine was causing his kidney function to go down. Patient reports that he has not taking it for the last 10 months, however he just restarted taking it again after her roll forming machine operator is for said it would be okay for him to take it. Patient reports that he was getting increase symptoms of abdominal pain and bloating. Denies any abdominal pain or discomfort, however reports to have blood in the stool, denies any mucus in his stool. Patient is due to go for colonoscopy. No issues with anesthesia in the past. No history of sleep apnea. Last colonoscopy was in January of 2024, Crohn's colitis found does when patient was placed on mesalamine. [facility] Medical History Tubular adenoma History of depression Osteoarthritis of right knee Pre-diabetes Hypertension, essential Surgical History History of total right knee replacement History of surgery on extremity Hx of elbow surgery Hx of hernia repair Hx of colonoscopy History of lumbar discectomy Hx of repair of rotator cuff Hx of arthroscopy of left knee Social History Household Members: Spouse Housing: House Are you a primary direct care staffer to a significant other at home: No Do you presently have visiting nurse or other home services: No Alcohol intake: current Alcohol intake frequency: holidays/special occasions only Patient Tobacco Use Status: Never used Tobacco e-Cigarette/Vaping Use: Never Used Second Hand Smoke Exposure: No service: No Current occupational status: retired Current occupation: Left handed Cognitive needs: No Hearing needs: No Vision needs: No Physical Exam Vital Signs: Last Vital Signs Pulse 70 01/20/25 08:08 BP 130/62 01/20/25 08:08 Pulse Ox 96 01/20/25 08:08 Oxygen Delivery Method Room Air 01/20/25 08:08 BMI result Body Mass Index 30.7 Assessment & Plan Assessment & Plan (1) Colon cancer screening: Code(s): Z12.11 - Encounter for screening for malignant neoplasm of colon Category: Medical (2) Inflammatory bowel disease: Code(s): K52.9 - Noninfective gastroenteritis and colitis, unspecified Category: Medical Plan What to expect before during and after procedure discussed with patient. Stressed importance of good bowel prep and clear liquid diet after the procedure. Patient will continue taking mesalamine as recommended. Continue taking Dulcolax in the evening with Colace. Avoid straining. I will see patient after the procedure, sooner on as needed basis. He is agreeable to this plan and verbalizes understanding of instructions. He was given the opportunity to ask questions and all questions answered. Thank you for allowing me to participate in his care Orders: Referrals GI Procedure Notification Z12.11 - Encounter for screening for malignant neoplasm of colon Medications: New polyethylene glycol 3350 (Miralax) As directed by gastroenterology department at [facility] 238 grams PO ONCE 238 grams 0RF Z12.11 - Encounter for screening for malignant neoplasm of colon hydrocortisone 2.5% (Proctosol HC) 1 appl CA BID-QID PRN 30 grams 2RF hemorrhoids K64.9 - Unspecified hemorrhoids mesalamine ER (Apriso) 1.5 grams (4 x 0.375 gram) PO QAM 120 caps 1RF R85.7 - Abnormal histological findings in specimens from digestive organs and abdominal cavity Changed From bisacodyl (Dulcolax (bisacodyl)) 10 mg PO BEDTIME PRN prn To bisacodyl (Dulcolax (bisacodyl)) 10 mg (2 x 5 mg) PO BEDTIME 180 tabs 3RF Coding Level of Care Code Est Pt Level 3 (10628) Diagnoses Colon cancer screening Z12.11 Inflammatory bowel disease K52.9 Time Spent (min) 30 Comment 20 minutes spent with patient and additional 10 minutes spent reviewing his records
[2025-01-20 08:08] VITALS: BP 130/62; PULSE 70; O2SAT 96; BMI 30.7
== END 2025-01-20 08:50 | disposition home or self-care (01) ==
LOC: HO.HGI 07:46
PROVIDERS: PCP Internal Medicine; Visit Provider Nurse Practitioner Family
DX: Z01.818 Encounter for other preprocedural examination (principal); Z12.11 Encounter for screening for malignant neoplasm of colon; K52.9 Noninfective gastroenteritis and colitis, unspecified
CPT/HCPCS: 99213

== ENCOUNTER → 2025-01-20 07:45 | Outpatient (BNVA) | payer MEDICARE, SELFPAY | PROVIDERS: PCP Internal Medicine; Visit Provider Nurse Practitioner Family | DX: Z12.11 Encounter for screening for malignant neoplasm of colon (principal); K52.9 Noninfective gastroenteritis and colitis, unspecified | CPT/HCPCS: 99212 ==

== ENCOUNTER 2025-01-27 13:13 | Outpatient (REF) | payer MEDICARE, SELFPAY ==
[2025-01-27 16:25] LABS: Hematocrit 33.0 % (42.0-52.0); Hemoglobin 11.0 g/dl (14.0-18.0); Mean Corpuscular HGB Conc 33.3 g/dl (31.0-36.0); Mean Corpuscular Hemoglobin 31.8 pg (27.0-33.0); Mean Corpuscular Volume 95.4 fL (80.0-98.0); NRBC Abs Auto 0.000 X10*3/uL (0.0-0.012); NRBC Pct Auto 0.0 /100WBC (0.0-0.2); Platelet Count 426 X10*3/uL (160-400); Red Blood Count 3.46 X10*6/uL (4.60-5.80); White Blood Count 11.5 X10*3/uL (4.8-10.8)
[2025-01-27 16:32] LABS: Anion Gap 10 (12-20); Blood Urea Nitrogen 37 mg/dL (9-16); Calcium 9.0 mg/dL (8.4-10.2); Carbon Dioxide 23 mmol/L (22-29); Chloride 110 mmol/L (96-108); Estimated Glomerular Filt Rate 36; Potassium 3.8 mmol/L (3.3-5.1); Sodium 139 mmol/L (135-145)
== END 2025-01-27 13:14 | disposition home or self-care (01) ==
LOC: HO.HMGCLDS 13:13
PROVIDERS: PCP Internal Medicine; Visit Provider Internal Medicine Hypertension Specialist
DX: N18.32 Chronic kidney disease, stage 3b (principal)
CPT/HCPCS: 36415; 80048; 85027

== ENCOUNTER 2025-02-03 09:41 | Outpatient (AMB) | payer MEDICARE, SELFPAY ==
[2025-02-03 09:43] VITALS: BP 119/60; PULSE 87; O2SAT 99; BMI 30.5
--- NOTE | 2025-02-03 09:43 | HO.NEPHOV ---
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 Accompanied by: Spouse Allergies hydromorphone (From Dilaudid) Adverse Reaction (Severe, Verified 02/03/25 09:46) Agitated peanuts Allergy (Severe, Uncoded 01/20/25 08:11) anaphylaxis Medication List - Last Reconciled 02/03/25 by Darian Richards MD amlodipine 5 mg PO DAILY bisacodyl (Dulcolax (bisacodyl)) 10 mg (2 x 5 mg) PO BEDTIME ferrous sulfate 324 mg PO DAILY hydrochlorothiazide 12.5 mg PO QAM hydrocortisone 2.5% (Proctosol HC) 1 appl [place] BID-QID PRN lisinopril 40 mg PO DAILY 90 days mesalamine ER (Apriso) 1.5 grams (4 x 0.375 gram) PO QAM polyethylene glycol 3350 (Miralax) 238 grams PO ONCE HPI Comments Details: Pradeep is a pleasant 74-year-old man who has been enjoying reasonably good health. He has had hypertension for almost 15 years and blood pressure has been well controlled. He has been on lisinopril 40 mg along with hydrochlorothiazide. Two years ago he was diagnosed with ulcerative colitis. He was started on mesalamine. Up until October of 2023, serum creatinine was 0.9 mg/dL. Over the last 5 months creatinine is bumped up to 1.34 and 1.66. At the time of this blood test he was taking Aleve regularly. He has stopped taking LE for the last 2 weeks. He has a history of arthritis he had knee replacement and underwent rehab. At present he is not on any NSAIDs and he takes Tylenol as needed. 04/15/2024. Serum creatinine stays at 1.6. He has been off mesalamine for almost 4 weeks. Urinalysis showed microhematuria. No significant proteinuria Serologies were ordered but not done yet. 06/03/2024. . Serologies showed IgG monoclonal protein. C ANCA was positive. Underwent kidney biopsy 09/06/24: 74-year-old male presenting with management of chronic kidney disease. Significant decline in his GFR, drawing attention from his doctor in February when the figure dropped to the 30s from 43. The presence of an abnormal protein, leading to monoclonal gammopathy, poses questions, with further hematological evaluation planned. The patient's blood pressure is effectively managed. He is currently revisiting medication strategies and monitoring lab abnormalities with an emphasis on addressing renal inflammation and maintaining functional status. 11/05/24 The patient is a 74-year-old male presenting for follow-up on chronic kidney disease and anemia management. The patient's anemia was noted with a hemoglobin level of 10.5, which has decreased from 13.5 in Feb 2024 There is no reported blood loss, and previous tests for multiple myeloma and prostate cancer were negative. Iron levels were borderline low at 42, and B12 and folate levels were normal. The patient has a history of chronic kidney disease, with a creatinine level of 2.19 and a low GFR. The kidney damage is attributed to scarring, with no active disease currently identified. The patient experiences nocturia and fatigue, which are consistent with decreased kidney function. The patient has a history of diverticulosis, previously managed with mesalamine, and recent colonoscopy showed improvement with only one small polyp noted. Hypertension is being managed with lisinopril, hydrochlorothiazide, and amlodipine, with noted peripheral edema possibly related to amlodipine use. The patient reports frequent urination and swelling in the right foot, which is larger than the left and worsens by the end of the day. 02/03/25 The patient is a 75-year-old male presenting with chronic kidney disease management. The kidney function has shown slight improvement over time, which is considered positive given the patient's age and condition. The patient is aware that the kidney function is unlikely to return to previous levels but is stable at present. The patient experiences constipation, which is managed with bisacodyl and fiber supplements. The constipation is noted to be a side effect of iron supplementation, which is being monitored. Awaiting colonoscopy in Apr 2025 [facility] Medical History Tubular adenoma History of depression Osteoarthritis of right knee Pre-diabetes Hypertension, essential Surgical History History of total right knee replacement History of surgery on extremity Hx of elbow surgery Hx of hernia repair Hx of colonoscopy History of lumbar discectomy Hx of repair of rotator cuff Hx of arthroscopy of left knee Social History Household Members: Spouse Housing: House Are you a primary long term care phlebotomist to a significant other at home: No Do you presently have visiting nurse or other home services: No Alcohol intake: current Alcohol intake frequency: holidays/special occasions only Patient Tobacco Use Status: Never used Tobacco e-Cigarette/Vaping Use: Never Used Second Hand Smoke Exposure: No service: No Current occupational status: retired Current occupation: Left handed Cognitive needs: No Hearing needs: No Vision needs: No Physical Exam Vital Signs: Last Vital Signs Pulse 87 02/03/25 09:43 BP 119/60 02/03/25 09:43 Pulse Ox 99 02/03/25 09:43 Oxygen Delivery Method Room Air 02/03/25 09:43 BMI result Body Mass Index 30.5 Results Reviewed Nephrology Results: Hgb, (14.0-18.0) 11.0 g/dl L 01/27/25 WBC, (4.8-10.8) 11.5 X10*3/uL H 01/27/25 Plt Count, (160-400) 426 X10*3/uL H 01/27/25 Sodium, (135-145) 139 mmol/L 01/27/25 Potassium, (3.3-5.1) 3.8 mmol/L 01/27/25 Chloride, (96-108) 110 mmol/L H 01/27/25 Carbon Dioxide, (22-29) 23 mmol/L 01/27/25 BUN, (9-16) 37 mg/dL H 01/27/25 Creatinine, (0.5-1.4) 1.84 mg/dL H 01/27/25 Calcium, (8.4-10.2) 9.0 mg/dL 01/27/25 Renal US 03/29/24 Assessment & Plan Assessment & Plan (1) Chronic kidney disease (CKD) stage G3b/A1, moderately decreased glomerular filtration rate (GFR) between 30-44 mL/min/1.73 square meter and albuminuria creatinine ratio less than 30 mg/g: Code(s): N18.32 - Chronic kidney disease, stage 3b Category: Medical (2) Anemia of chronic disease: Code(s): D63.8 - Anemia in other chronic diseases classified elsewhere Category: Medical (3) Hypertension, essential: Code(s): I10 - Essential (primary) hypertension Category: Medical Plan Pleasant 74-year-old man with a history of longstanding hypertension and recent ulcerative colitis has sustained acute kidney injury. Despite discontinuing the hydrochlorothiazide Aleve and mesalamine has been no improvement in the renal function yet. Serum creatinine is 1.68. ; now around 2.16 He was microscopic hematuria. No significant proteinuria. C ANCA positive. IgG monoclonal gammopathy present. Underwent kidney biopsy. No evidence of acute glomerular nephritis. There was glomerular reactivity with IgM C3 and kappa. There was acute tubular injury with focal necrosis. Immune complex mediated injury. 19% global glomerulosclerosis with a 10-15% tubular atrophy/fibrosis. Moderate degree of vascular sclerosis Still with persistent microhematuria empirically treated with Prednisone 40 mg QD for 4 weeks and will decrease to 30 mg QD x 1 week followed by 20 mg QD x 1 week followed by 10 mg QD and discontinued eGFR has increased from 30 to 36 ml/mt over the past few months Clinically euvolemic Will STOP HCTZ 12.5 mg QD Can be used PRN for edema Anemia M spike - immunofixation showed monoclonal protein. s/p hematology evaluation s/p Biopsy No MM May need Epogen if HCT drops < 30 % Await colonoscopy . Orders: Orders Basic Metabolic Panel 3 Months D64.9 - Anemia, unspecified, I10 - Essential (primary) hypertension, N18.32 - Chronic kidney disease, stage 3b Complete Blood Count no Diff 3 Months N18.32 - Chronic kidney disease, stage 3b Creatinine Urine 3 Months N18.32 - Chronic kidney disease, stage 3b UA and rflx microscopic 3 Months N18.32 - Chronic kidney disease, stage 3b Neutrophil Cytoplasma Ab 3 Months D63.8 - Anemia in other chronic diseases classified elsewhere, N18.32 - Chronic kidney disease, stage 3b Myeloperoxidase Antibody 3 Months D63.8 - Anemia in other chronic diseases classified elsewhere, N18.32 - Chronic kidney disease, stage 3b Proteinase 3 PR3 Antibodies 3 Months D63.8 - Anemia in other chronic diseases classified elsewhere, N18.32 - Chronic kidney disease, stage 3b Total Protein Urine Random 3 Months N18.32 - Chronic kidney disease, stage 3b Anti Glomerular Basement Memb 3 Months D63.8 - Anemia in other chronic diseases classified elsewhere, N18.32 - Chronic kidney disease, stage 3b Complement C3 3 Months D63.8 - Anemia in other chronic diseases classified elsewhere, N18.32 - Chronic kidney disease, stage 3b Complement C4 3 Months D63.8 - Anemia in other chronic diseases classified elsewhere, N18.32 - Chronic kidney disease, stage 3b Medications: Changed From hydrochlorothiazide 12.5 mg PO QAM 90 tabs 1RF To hydrochlorothiazide 12.5 mg PO .prn 90 tabs 1RF edema Coding Level of Care Code Est Pt Level 4 (67229) Diagnoses Chronic kidney disease (CKD) stage G3b/A1, moderately decreased glomerular filtration rate (GFR) between 30-44 mL/min/1.73 square meter and albuminuria creatinine ratio less than 30 mg/g N18.32 Anemia of chronic disease D63.8 Hypertension, essential I10
== END 2025-02-03 10:08 | disposition home or self-care (01) ==
LOC: HO.HKA 09:43
PROVIDERS: PCP Internal Medicine; Visit Provider Internal Medicine Hypertension Specialist
DX: N18.32 Chronic kidney disease, stage 3b (principal); D63.8 Anemia in other chronic diseases classified elsewhere; I10 Essential (primary) hypertension
CPT/HCPCS: 99214

== ENCOUNTER → 2025-02-03 09:41 | Outpatient (BNVA) | payer MEDICARE, SELFPAY | PROVIDERS: PCP Internal Medicine; Visit Provider Internal Medicine Hypertension Specialist | DX: I12.9 Hypertensive chronic kidney disease with stage 1 through stage 4 chronic kidney disease, or unspecified chronic kidney disease (principal); N18.32 Chronic kidney disease, stage 3b; D63.8 Anemia in other chronic diseases classified elsewhere | CPT/HCPCS: 99212 ==

== ENCOUNTER 2025-03-08 09:32 | Outpatient (REF) | payer MEDICARE, SELFPAY ==
--- OUTSIDE RECORDS SUMMARY | 2025-03-08 09:35 | XMS_ITS ---
Author Organization Unknown ENCOUNTERS Encounter Performer Location Date Diagnosis Diagnosis Status Outpatient [facility] [address] [place] [address] [id number] [facility] Outpatient [facility] [address] [place] [address] [id number] [facility] Pre Admit [facility] [address] [place] [address] [id number] Outpatient [facility] [address] [place] [address] [id number] [facility] Pre Admit [facility] [address] [place] [address] [id number] Outpatient [facility] [address] [place] [address] [id number] [facility] Pre Admit [facility] [address] [place] [address] [id number] Outpatient [facility] [address] [place] [address] [id number] [facility] Pre Admit [facility] [address] [place] [address] [id number] Outpatient [facility] [address] [place] [address] [id number] AGUSTO *Note: Encounters from your own facility or health system may be excluded. Allergies, Adverse Reactions, Alerts Allergen Type Severity Identification Date hydromorphone drug allergy 4 [id number] Medications Name Date Quantity Days Supplied GPI Number
[2025-03-08 12:11] LABS: Ferritin 59 ng/mL (20-250); Iron 36 mcg/dL (45-160); Percent Iron Saturation 15 % (15-50); Total Iron Binding Capacity 235 mcg/dL (228-428); Unsaturated Iron Binding 199 ug/dL
== END 2025-03-08 09:33 | disposition home or self-care (01) ==
LOC: HO.HMGCLDS 09:32
PROVIDERS: PCP Internal Medicine; Visit Provider Internal Medicine
DX: D64.9 Anemia, unspecified (principal)
CPT/HCPCS: 36415; 82728; 83540

== ENCOUNTER 2025-03-13 12:04 | Outpatient (REF) | payer MEDICARE, SELFPAY ==
--- NOTE | ~2025-03-13 | US_ITS ---
EXAMINATION: US TRIPLEX LOWER EXTREMITY, LEFT CLINICAL INFORMATION: Edema, left lower extremity COMPARISON: None available. TECHNIQUE: Color-flow triplex imaging with spectral analysis and compression Doppler were performed on the left lower extremity. FINDINGS: Respiratory variation, normal compression and augmented flow are demonstrated in the interrogated left common femoral vein, superficial femoral vein, profunda femoral vein, popliteal vein and midcalf peroneal and posterior tibial venous segments and the right common femoral vein. There is no Arevalo's cyst. US/US venous duplex LE IMPRESSION: No acute deep venous thrombosis interrogated veins, left lower extremity. Negative for DVT. Electronically signed by: Orion Jimenez MD 03/13/2025 12:31 PM [facility]
--- OUTSIDE RECORDS SUMMARY | 2025-03-13 18:26 | XMS_ITS ---
Author Organization Unknown ENCOUNTERS Encounter Performer Location Date Diagnosis Diagnosis Status Outpatient [facility] [address] [place] [address] [id number] [facility] Outpatient [facility] [address] [place] [address] [id number] [facility] Pre Admit [facility] [address] [place] [address] [id number] Outpatient [facility] [address] [place] [address] [id number] [facility] Pre Admit [facility] [address] [place] [address] [id number] Outpatient [facility] [address] [place] [address] [id number] [facility] Pre Admit [facility] [address] [place] [address] [id number] Outpatient [facility] [address] [place] [address] [id number] [facility] Pre Admit [facility] [address] [place] [address] [id number] Outpatient [facility] [address] [place] [address] [id number] [facility]O *Note: Encounters from your own facility or health system may be excluded. Allergies, Adverse Reactions, Alerts Allergen Type Severity Identification Date hydromorphone drug allergy 4 [id number] Medications Name Date Quantity Days Supplied GPI Number
== END 2025-03-13 12:05 | disposition home or self-care (01) ==
LOC: HO.US 12:04
PROVIDERS: PCP Internal Medicine; Visit Provider Internal Medicine
DX: R60.0 Localized edema (principal)
CPT/HCPCS: 93971

== ENCOUNTER → 2025-03-13 12:07 | Outpatient (BNV) | payer MEDICARE, SELFPAY | PROVIDERS: PCP Internal Medicine; Visit Provider Radiology Diagnostic Radiology | DX: Z03.89 Encounter for observation for other suspected diseases and conditions ruled out (principal) | CPT/HCPCS: 93971 ==